=== PATIENT | female | born 1995 | race Caucasian/White ===

== ENCOUNTER → 2017-11-27 14:24 | Outpatient (CLI) | payer BC, SELFPAY | PROVIDERS: Family Provider Family Medicine; PCP Family Medicine; Visit Provider Physician Assistant | DX: J02.9 Acute pharyngitis, unspecified (principal) | CPT/HCPCS: 87081 ==

== ENCOUNTER → 2018-01-02 09:53 | Outpatient (CLI) | payer BC, SELFPAY ==
[2018-01-02 12:13] LABS: Estradiol 26.7 pg/mL; Luteinizing Hormone 1.8 mIU/mL; T4 Free Direct 0.74 ng/dL (0.76-1.46); Thyroid Stim Hormone (TSH) 0.64 uIU/mL (0.358-3.74)
[2018-01-03 11:28] LABS: Sex Hormone-binding Globulin 268.1 nmol/L (24.6-122.0)
[2018-01-05 10:06] LABS: T3 Total - Triiodothyronine 0.69 ng/mL (0.6-1.81)
== END ==
PROVIDERS: Visit Provider Obstetrics & Gynecology
DX: N92.6 Irregular menstruation, unspecified (principal)
CPT/HCPCS: 36415; 82670; 83001; 83002; 84270; 84403; 84439; 84443; 84480; 84481

== ENCOUNTER → 2018-01-25 15:27 | Outpatient (CLI) | payer BC, SELFPAY ==
[2018-01-25 17:49] LABS: ALB/GLOB Ratio 1.2 RATIO (0.9-2.4); AST(SGOT) 35 U/L (15-37); Alanine Aminotransfer ALT/SGPT 34 U/L (13-56); Albumin, Serum 3.7 g/dL (3.2-5.0); Alkaline Phosphatase 47 U/L (45-117); Anion Gap 7 (5-15); BUN 18 mg/dL (7-18); BUN/Creat Ratio 27.2 RATIO (10-20); Calcium,Total 8.3 mg/dL (8.5-10.1); Chloride 96 mmol/L (98-107); Creatinine, Serum 0.66 mg/dL (0.55-1.02); EST Glomerular Filtration Rate 118 mL/min (>60); Est Glom Filt Rate - Afr Amer 143 mL/min (>60); Globulin 3.1 g/dL (2.2-4.2); Glucose 75 mg/dL (74-106); Magnesium 2.1 mg/dL (1.6-2.6); Phosphorus 2.8 mg/dL (2.5-4.9); Potassium 3.5 mmol/L (3.5-5.1); Protein, Total 6.8 g/dL (6.4-8.2); Sodium Level 130 mmol/L (136-145)
[2018-01-25 17:56] LABS: Carbamazepine (Tegretol) 9.2 ug/mL (4.0-12.0)
== END ==
PROVIDERS: Family Provider Family Medicine; PCP Family Medicine; Visit Provider Nurse Practitioner Acute Care
DX: R56.9 Unspecified convulsions (principal)
CPT/HCPCS: 36415; 80053; 80156; 83735; 84100

== ENCOUNTER → 2018-02-18 14:26 | Outpatient (CLI) | payer BC, SELFPAY ==
[2018-02-18 14:29] LABS: Bacteria 0 SEEN /hpf (None Seen); Mucous, Urine 0 SEEN /hpf (<or=2+); Red Blood Cells-Urine 0 SEEN /hpf (0-5); Squamous Epithelial Cells - UA 0 SEEN /hpf (5-10); White Blood Cells 0 SEEN /hpf (0-5)
[2018-02-18 14:36] LABS: Glucose, Dipstick Normal (Normal); Ketone-Dipstick Negative (Negative); Leukocyte Esterase-Dipstick Negative /ul (Negative); Nitrite-Dipstick Negative (Negative); Occult Blood-Urine Negative /ul (Negative); Protein-Dipstick Negative (Negative); Urine Bilirubin Dipstick Negative (Negative); Urine Urobilinogen Normal (Normal)
[2018-02-18 14:38] LABS: Color, Urine Yellow (Yellow); Urine Clarity Clear (Clear)
== END ==
PROVIDERS: Visit Provider Nurse Practitioner Family
DX: R35.0 Frequency of micturition (principal)
CPT/HCPCS: 81001; 87086

== ENCOUNTER 2018-02-18 17:02 | Emergency (ER) | payer BC, SELFPAY ==
[2018-02-18 17:03] VITALS: BP 108/72; PULSE 59; RESP 14; TEMP 36.8; O2SAT 100; BMI 23.6
[2018-02-18 17:26] LABS: Bacteria 0 SEEN /hpf (None Seen); Mucous, Urine 0 SEEN /hpf (<or=2+); Red Blood Cells-Urine 0 SEEN /hpf (0-5); White Blood Cells 0 SEEN /hpf (0-5)
[2018-02-18 17:28] LABS: Color, Urine Yellow (Yellow); Glucose, Dipstick Normal (Normal); Ketone-Dipstick Negative (Negative); Leukocyte Esterase-Dipstick Negative /ul (Negative); Nitrite-Dipstick Negative (Negative); Occult Blood-Urine Negative /ul (Negative); Protein-Dipstick Negative (Negative); Urine Bilirubin Dipstick Negative (Negative); Urine Clarity Clear (Clear); Urine Urobilinogen Normal (Normal)
[2018-02-18 17:39] LABS: Squamous Epithelial Cells - UA 0-5 SEEN /hpf (5-10)
[2018-02-18 17:42] LABS: Internal QC Validated? YES +Cl - CLEAR BKGD; Pregnancy, Urine Negative Negative
--- NOTE | 2018-02-18 19:18 | ED.VISSUMM ---
- ER Visit Summary Date of Service: 02/18/18 Chief Complaint: Dysuria History of Present Illness: The patient is a 22 F no significant past medical history other than seizures. Complaining of mild dysuria. Primarily pressure at the end of urinating. Denies any gross hematuria. No fever. No cloudy or foul-smelling urine. Last menstrual period was 10 months ago she is currently being worked up by her DRIVER EXAMINER for irregular periods. She has never been . She denies any vaginal bleeding or discharge currently. Physical Examination: Appearing young female. Vital signs are stable afebrile. She does not look septic or toxic. H EENT exam unremarkable. Neck nontender no lymphadenopathy. Lungs clear to auscultation bilaterally. Heart regular rate and rhythm no murmur. Abdomen soft nontender. Normal bowel sounds. No peritoneal signs. She is moving all 4 extremities. Back nontender. Neurologically she is awake and alert. Test Results: UA is normal. No signs of infection. Urine test negative. Emergency Department Course and Treatment: Repeat exam patient is doing well at 1803 and will be discharged home to follow-up if not improving. Treatment Plan: Follow-up with your DRIVER EXAMINER Dr. Anu Noble if not getting better in the next several days. Disposition: Discharge Impression: Acute dysuria of uncertain etiology This note was generated with [employer] dictation software. It may contain incorrect words, spelling, and punctuation that were not noted in review of the chart prior to signing ED Disposition - Plan for ED Patient: Chief Complaint: Complaint Referrals: Jorge Gary [Primary Care Provider] -
--- NOTE | 2018-02-18 19:21 | ED.DCSUM_ITS ---
- ER Visit Summary Date of Service: 02/18/18 Chief Complaint: Dysuria History of Present Illness: The patient is a 22 F no significant past medical history other than seizures. Complaining of mild dysuria. Primarily pressure at the end of urinating. Denies any gross hematuria. No fever. No cloudy or foul-smelling urine. Last menstrual period was 10 months ago she is currently being worked up by her PACKAGER AND STRAPPER for irregular periods. She has never been . She denies any vaginal bleeding or discharge currently. Physical Examination: Appearing young female. Vital signs are stable afebrile. She does not look septic or toxic. H EENT exam unremarkable. Neck nontender no lymphadenopathy. Lungs clear to auscultation bilaterally. Heart regular rate and rhythm no murmur. Abdomen soft nontender. Normal bowel sounds. No peritoneal signs. She is moving all 4 extremities. Back nontender. Neurologically she is awake and alert. Test Results: UA is normal. No signs of infection. Urine test negative. Emergency Department Course and Treatment: Repeat exam patient is doing well at 1803 and will be discharged home to follow-up if not improving. Treatment Plan: Follow-up with your P[employer]AGER [employer]PER Dr. Anu Noble if not getting better in the next several days. Disposition: Discharge Impression: Acute dysuria of uncertain etiology This note was generated with [employer] dictation software. It may contain incorrect words, spelling, and punctuation that were not noted in review of the chart prior to signing ED Disposition - Plan for ED Patient: Chief Complaint: Complaint Referrals: Jorge Gary [Primary Care Provider] -
--- NOTE | 2018-02-18 19:21 | ED.DEP ---
ED Disposition - Plan for ED Patient: Disposition: Home or Assisted Living Chief Complaint: Complaint Instructions: ED Dysuria Uncertain Cause Referrals: Jorge Gary [Primary Care Provider] - As Needed Naz You MD [STAFF PHYSICIAN] - 3-5 Days if not improving
[2018-02-18 19:27] VITALS: RESP 18
--- NOTE | 2018-02-18 19:27 | NURSING ---
doctor put medications under the wrong person and cancelled them
== END 2018-02-18 19:27 | disposition home or self-care (01) ==
PROVIDERS: Emergency Provider Emergency Medicine; Family Provider Family Medicine; PCP Family Medicine
DX: R30.0 Dysuria (principal); Z79.899 Other long term (current) drug therapy
CPT/HCPCS: 81001; 81025; 99282

== ENCOUNTER → 2018-05-22 10:48 | Outpatient (CLI) | payer BC, SELFPAY ==
[2018-05-22 12:52] LABS: Estradiol 28.5 pg/mL; Free T3 1.8 pg/mL (2.18-3.98); T4 Free Direct 0.63 ng/dL (0.76-1.46); Thyroid Stim Hormone (TSH) 0.68 uIU/mL (0.358-3.74)
[2018-05-23 16:08] LABS: DHEA Sulfate 119.5 ug/dL (110.0-431.7); Thyroid Peroxidase AB 11 IU/mL (0-34)
[2018-05-23 17:12] LABS: Prolactin 7.7 ng/mL
[2018-05-24 11:43] LABS: Anti-Thyroglobulin AB < 1.0 IU/mL (0.0-0.9); Sex Hormone-binding Globulin 106.6 nmol/L (24.6-122.0); Thyroglobulin, Serum Qt. 2.2 ng/mL (1.5-38.5)
== END ==
PROVIDERS: Visit Provider Obstetrics & Gynecology
DX: E03.9 Hypothyroidism, unspecified (principal); N92.5 Other specified irregular menstruation
CPT/HCPCS: 36415; 82627; 82670; 84146; 84270; 84403; 84432; 84439; 84443; 84481; 86376; 86800; 82626

== ENCOUNTER → 2018-08-13 14:12 | Outpatient (CLI) | payer BC, SELFPAY ==
[2018-08-13 16:00] LABS: Hematocrit 41.2 % (37-47); Hemoglobin 13.8 g/dl (12.0-15.0); Mean Corp Hgb Conc 33.5 g/gl (32-36); Mean Corpuscular Hgb 33.1 pg (27.0-32.0); Mean Corpuscular Volume 98.8 fL (81-99); Mean Platelet Vol. 8.8 fl (6.2-12.0); Platelet Count 279 K/mm3 (150-450); RBC Distribution Width CV 12.9 % (11.6-14.6); RBC Distribution Width SD 46.1 fl (35.1-43.9); Red Blood Count 4.17 M/mm3 (4.2-5.4); White Blood Count 6.7 K/mm3 (4.4-11.0)
[2018-08-13 16:02] LABS: Scan Indicated on CBC? Y/N NO
[2018-08-13 16:38] LABS: Carbamazepine (Tegretol) 7.1 ug/mL (4.0-12.0)
[2018-08-13 16:41] LABS: Vitamin B12 815 pg/mL (211-911)
[2018-08-13 17:09] LABS: Anion Gap 6 (5-15); BUN 16 mg/dL (7-18); BUN/Creat Ratio 23.3 RATIO (10-20); Calcium,Total 8.5 mg/dL (8.5-10.1); Chloride 100 mmol/L (98-107); Creatinine, Serum 0.69 mg/dL (0.55-1.02); EST Glomerular Filtration Rate 113 mL/min (>60); Est Glom Filt Rate - Afr Amer 136 mL/min (>60); Glucose 76 mg/dL (74-106); Potassium 3.4 mmol/L (3.5-5.1); Sodium Level 136 mmol/L (136-145)
--- OUTSIDE RECORDS SUMMARY | 2018-09-25 11:49 | XMS RPT_ITS ---
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 a 22 year old female presenting as a new patient to me regarding Abnormal thyroid function tests . RECOMMENDATIONS: (E03.8) Secondary hypothyroidism (primary encounter diagnosis) Comment: pathophysiology AND treatment options discussed. check level AND Rx as needed. Plan: TSH BLD, T4 FREE/FREE THYROX, T3 FREE BLD (R94.6) Borderline abnormal TFTs Comment: pathophysiology AND treatment options discussed. check level AND Rx as needed. Plan: TSH BLD, T4 FREE/FREE THYROX, T3 FREE BLD (R79.89) Low thyroxine (T4) level Comment: monitor Ft4. Plan: TSH BLD, T4 FREE/FREE THYROX, T3 FREE BLD (R79.89) Low serum triiodothyronine (T3) Comment: monitor FT3. Plan: TSH BLD, T4 FREE/FREE THYROX, T3 FREE BLD (N92.6) Irregular menses Comment: pathophysiology AND treatment options discussed. check pituitary-ovary axis. Plan: FSH BLD, LUTEINIZING HORMONE, T4/FTI/T4U (R53.83) Lack of energy Comment: likely multifactorial. First optimize thyroid and Vit D rx, hydration and regular exercise. Plan: VITAMIN D 25 HYDROXY (E55.9) Vitamin D deficiency Comment: check level AND Rx as needed. Plan: VITAMIN D 25 HYDROXY I spent 60 minutes in this visit, with more than 50% of the time devoted to patient counseling. pathophysiology of hypothyroidism, risk of thyroid disorder with strong family history, thyroid antibodies, pituitary-thyroid axis, relationship of TSH with FT4/FT3, thyroid meds, generic versus brand name, how to take thyroid meds properly (morning vs bed time), foods and meds interfering with thyroid meds, Jose Salinas MD June 04, 2018 CNOV Observed: 06/04/2018 Status: COMPLETED Source: [place] 2:45 PM [facility] REPOSITORY Office Visit (ENDMED) SANDRA SCHULTZ ([id number]) 1995 F Date Time Provider Department 06/04/18 2:45 PM JOSE SALINAS During your visit today, we recorded the following information about you: Pulse Blood pressure Weight Height 69/minute 117/76 63 kg 1.613 m Last Period 05/16/18 Jose Salinas MD 07/15/2018 6:41 PM Signed Reason for Consultation: Hypothyroidism - possible secondary (low FT3, low Ft4, low normal TSH) Referring Physician: Jose Gary MD [address] [facility] [id number] My final recommendations will be communicated back to the requesting physician by way of shared Medical record or letter via US mail. HISTORY OF PRESENT ILLNESS; Ms. Schultz is a 22 year old female presenting as a new patient to me regarding Hypothyroidism. She was initially diagnosed with a thyroid disorder in December 2017. She has h/o body building and doing exercise, she also participate in competitions. Now she is slowing down. She was on OCPs, and when it was topped she had problem with mens, so her CREW MEMBER MD did blood work and found that her FT4 and FT3 both are low with a low normal TSH. All other hormonal labs are within normal range. She was referred here for further management. Severity, modifying factors, context and associated signs and symptoms are as follows: ? Thyroid pain: no ? Mass effect: difficulty swallowing ? Energy: reduced ? Sleep: Restless ? Temperature Intolerance: Cold Intolerance ? CREW MEMBER: Regular Menses - last 2 cycles, before that it was irregular ? GI: denies loose stools, frequent stools or constipation ? Weight: remained stable ? Eyes: No ? Memory: Good ? Diaphoresis: Not significant ? Skin: oily skin and acnes, acnes oliver whole life and taking aldactone for that now ? Neuro: migraine headaches, seizures - last Sz 3 yrs ago, dizziness ? Radiological imaging with contrast dyes within the last 3 months? no ? History of radiation exposure to head or neck area? no PAST MEDICAL HISTORY Diagnosis Date - Epilepsy (HCC) No past surgical history on file. FAMILY HISTORY Problem Relation Age of Onset - Heart Maternal Grandfather - Diabetes Maternal Grandfather - Cancer Other - Diabetes Other - Heart Other SOCIAL HISTORY Social History Substance Use Topics - Smoking status: Never Smoker - Smokeless tobacco: Never Used - Alcohol use No Current Outpatient Prescriptions: spironolactone (ALDACTONE) 100 mg tablet Take 100 mg by mouth once daily. Disp: Rfl: EPIDUO FORTE 0.3-2.5 % glwp Apply 1 application to affected area once daily. Disp: Rfl: 3 doxycycline monohydrate (MONODOX) 50 mg capsule Take 50 mg by mouth once daily. Disp: Rfl: carBAMazepine XR (TEGRETOL XR) 400 mg 12 hr tablet Take 400 mg by mouth twice daily. Disp: Rfl: B INFANTIS/B ANI/B LAURA/B BIFID (PROBIOTIC 4X ORAL) Take by mouth. Disp: Rfl: spironolactone (ALDACTONE) 50 mg tablet Disp: Rfl: Norethindrone-Mestranol 1-50 mg-mcg tab Take by mouth. Disp: Rfl: No current facility-administered medications for this visit. ALLERGIES ALLERGIES No Known Allergies MEDICAL RECORD REVIEW: Reviewed old notes from previous visits as well as labs from the available documentation. REVIEW OF SYSTEMS: SYSTEMIC: weight has been stable, low energy and cold intolerance EYES: normal NECK: normal RESPIRATORY: normal CARDIOVASCULAR: normal GASTRO-INTESTINAL: normal NEUROLOGICAL: dizziness MUSCULOSKELETAL: No joint pain, stiffness, swelling, cramping or weakness SKIN: oily skin and acne PSYCHIATRIC: irritability, mood swings, depression and anxiety LIBIDO: normal SEXUAL-REPRODUCTIVE: normal All other systems: non-contributory PHYSICAL EXAM: BP 117/76 (BP Site: Left Arm, BP Position: Sitting, BP Cuff Size: Regular Adult) Pulse 69 Ht 161.3 cm (5' 3.5) Wt 63 kg (139 lb) LMP 05/16/2018 SpO2 96% BMI 24.24 kg/m2 General: Well appearing, alert, in no acute distress, well- hydrated, well nourished. Eyes: PRATIMA, extra occular movements normal Oropharynx: Lips, mucosa, and tongue normal, teeth and gums normal, oropharynx normal Thyroid: normal to inspection, palpation and auscultation, left side prominent Thyroid size: 30 gm Heart: RRR without murmur, gallop, or rubs. No ectopy Lungs: Lungs clear to auscultation. No wheezing, rhonchi, rales Abdomen: soft, non-tender, positive bowel sounds Extremities: normal exam of the extremities, no edema present, no deformities Neuro: Awake, alert and oriented x 3, No involuntary motions. and Reflexes symmetrical Skin: color, texture, turgor normal, no rashes or lesions DATA: No components found for: TOTALT4 No results found for: FREET4 No components found for: TOTALT3 No results found for: TSH No results found for: FREET3 No results found for: MICROSOMAB RADIOLOGY: US Thyroid was not done. ASSESSMENT: Ms. Schultz is a 22 year old female presenting as a new patient to me regarding Abnormal thyroid function tests . RECOMMENDATIONS: (E03.8) Secondary hypothyroidism (primary encounter diagnosis) Comment: pathophysiology AND treatment options discussed. check level AND Rx as needed. Plan: TSH BLD, T4 FREE/FREE THYROX, T3 FREE BLD (R94.6) Borderline abnormal TFTs Comment: pathophysiology AND treatment options discussed. check level AND Rx as needed. Plan: TSH BLD, T4 FREE/FREE THYROX, T3 FREE BLD (R79.89) Low thyroxine (T4) level Comment: monitor Ft4. Plan: TSH BLD, T4 FREE/FREE THYROX, T3 FREE BLD (R79.89) Low serum triiodothyronine (T3) Comment: monitor FT3. Plan: TSH BLD, T4 FREE/FREE THYROX, T3 FREE BLD (N92.6) Irregular menses Comment: pathophysiology AND treatment options discussed. check pituitary-ovary axis. Plan: FSH BLD, LUTEINIZING HORMONE, T4/FTI/T4U (R53.83) Lack of energy Comment: likely multifactorial. First optimize thyroid and Vit D rx, hydration and regular exercise. Plan: VITAMIN D 25 HYDROXY (E55.9) Vitamin D deficiency Comment: check level AND Rx as needed. Plan: VITAMIN D 25 HYDROXY I spent 60 minutes in this visit, with more than 50% of the time devoted to patient counseling. pathophysiology of hypothyroidism, risk of thyroid disorder with strong family history, thyroid antibodies, pituitary-thyroid axis, relationship of TSH with FT4/FT3, thyroid meds, generic versus brand name, how to take thyroid meds properly (morning vs bed time), foods and meds interfering with thyroid meds, Jose Salinas MD June 04, 2018 Referring Provider: JOSE GARY [[id number]] Allergies As of Date: 06/04/2018 (No Known Allergies) Date Reviewed: 06/04/2018 Reviewed by: Grazyna Cruz Ma - Fully Assessed Reason for Visit: Thyroid Problem [110] Primary Visit Diagnosis:Secondary hypothyroidism [E03.8] Other Visit Diagnoses:Borderline abnormal TFTs [R94.6] Low thyroxine (T4) level [R79.89] Low serum triiodothyronine (T3) [R79.89] Irregular menses [N92.6] Lack of energy [R53.83] Vitamin D deficiency [E55.9] Order(s):TSH BLD [SQTSH] Order #: [id number] FUTURE T4 FREE/FREE THYROX [SQFT4] Order #: [id number] FUTURE T3 FREE BLD [SQFREET3] Order #: [id number] FUTURE FSH BLD [SQFSH] Order #: [id number] FUTURE LUTEINIZING HORMONE [SQLH] Order #: [id number] FUTURE T4/FTI/T4U [YNZ4RKN] Order #: [id number] FUTURE VITAMIN D 25 HYDROXY [SQVITD] Order #: [id number] FUTURE Prescriptions as of 06/04/2018 Sig: SPIRONOLACTONE 100 MG TABLET Take 100 mg by mouth once kathy* EPIDUO FORTE 0.3 %-2.5 % TOPI* Apply 1 application to affect* DOXYCYCLINE MONOHYDRATE 50 MG* Take 50 mg by mouth once perla* CARBAMAZEPINE ER 400 MG TABLE* Take 400 mg by mouth twice da* PROBIOTIC 4X ORAL Take by mouth. SPIRONOLACTONE 50 MG TABLET NORETHINDRONE-MESTRANOL 1 MG-* Take by mouth. Medication notes this encounter EPIDUO FORTE 0.3 %-2.5 % TOPICAL GEL WITH PUMP >> Grazyna Cruz Ma 06/04/2018 2:56 PM >> GRAZYNA CRUZ MA Jun 04, 2018 2:56 PM Problem List As Of Date 06/04/2018 Noted Resolved Examination of eyes and vision [Z01.00] INVALID FOR* Myopia [H52.10] INVALID FOR* Astigmatism, regular [H52.229] INVALID FOR* Disposition: Return in about 3 months (around 09/03/2018). Follow-up and Disposition History Recorded Letter Text Jose Salinas M.D. Staff Electrophysiology Technologist [address] [place] [address], [address] [place] [address] Office: [phone] Sandra Schultz 05/25/2018 Sandra Schultz [address] [place] [phone] Jose Gary MD, I would like to thank you for letting us participate in the care of your patient. Please see a copy of my assessment and plan following the visit. Respectfully, Jose Salinas MD Encounter Status:Closed by JOSE SALINAS MD on 07/15/18 FREE T3 Collected: 05/22/2018 Status: F Source: [place] 10:54 AM [facility] REPOSITORY Order Comment: PLEASE ADD TO BLOOD IN LAB FROM 05/22/18. RACK TG4 1 H TYPE CODE TESTS RESULT OUT OF RANGE REFERENCE UNITS LAB L501.11527 2.18-3.98 pg/mL Low FREE T3 1.8 Performed By: #### L501.10546, L501.9520, L506.0400, L3300.1750, L3100.5420 #### [facility] [address] [place], [place], [id number] THYROID STIM HORMONE Collected: 05/22/2018 Status: F Source: [place] (TSH) 10:54 AM [facility] REPOSITORY Order Comment: PLEASE ADD TO BLOOD IN LAB FROM 05/22/18. RACK TG4 1 H TYPE CODE TESTS RESULT OUT OF RANGE REFERENCE UNITS LAB L501.9520 0.358-3.74 uIU/mL Normal TSH 0.68 Performed By: #### L501.98710, L501.9520, L506.0400, L3300.1750, L3100.5420 #### [facility] [address] [place], [place], [address] T4 FREE DIRECT Collected: 05/22/2018 Status: F Source: [place] 10:54 AM [facility] REPOSITORY Order Comment: PLEASE ADD TO BLOOD IN LAB FROM 05/22/18. RACK TG4 1 H TYPE CODE TESTS RESULT OUT OF REFERENCE UNITS RANGE LAB L506.0400 0.76-1.46 ng/dL Low T4 FREE 0.63 DIRECT Performed By: #### L501.06349, L501.9520, L506.0400, L3300.1750, L3100.5420 #### [facility] [address] [place], [place], [address] ESTRADIOL Collected: 05/22/2018 Status: F Source: [place] 10:54 AM [facility] REPOSITORY Order Comment: PLEASE ADD TO BLOOD IN LAB FROM 05/22/18. RACK TG4 1 H TYPE CODE TESTS RESULT OUT OF RANGE REFERENCE UNITS LAB L3300.1750 pg/mL Normal ESTRADIOL 28.5 Result Comment: NORMAL REFERENCE RANGES FEMALE FOLLICULAR 21.4 - 164.8 pg/mL MID-CYCLE PEAK 49.9 - 367.2 pg/mL LUTEAL 40.2 - 259.0 pg/mL POST-MENOPAUSAL ON MHT <11.0 - 462.1 pg/mL NOT ON MHT <11.0 - 58.3 pg/mL MALE <11.0 - 52.5 pg/mL NOTE: [facility] HAS CONFIRMED THE DRUG FULVETRANT (FASLODEX) MAY CAUSE FALSELY ELEVATED ESTRADIOL RESULTS WHEN USING THIS TEST METHOD. IF PATIENT IS TAKING FULVESTRANT AN ALTERNATIVE METHOD SHOULD BE USED TO DETERMINE ESTRADIOL CONCENTRATION. Performed By: #### L501.58795, L501.9520, L506.0400, L3300.1750, L3100.5420 #### [facility] [address] [place], [place], [address] PROLACTIN Collected: 05/22/2018 Status: F Source: [place] 10:54 AM [facility] REPOSITORY Order Comment: PLEASE ADD TO BLOOD IN LAB FROM 05/22/18. RACK TG4 1 H TYPE CODE TESTS RESULT OUT OF RANGE REFERENCE UNITS LAB L3100.5420 ng/mL Normal PROLACTIN 7.7 Result Comment: NORMAL REFERENCE RANGES FEMALE NON- 2.2 - 30.3 ng/mL 8.1 - 347.6 ng/mL POST-MENOPAUSAL 0.7 - 31.5 ng/mL MALE 2.5 - 17.4 ng/mL NEW TEST METHOD AND REFERENCE RANGES FEBRUARY 06, 2012 Performed By: #### L501.46433, L501.9520, L506.0400, L3300.1750, L3100.5420 #### [facility] [address] [place], [address] TESTOSTERONE, SERUM TOTAL Collected: 05/22/2018 Status: F Source: [place] 10:54 AM [facility] REPOSITORY TYPE CODE TESTS RESULT OUT OF REFERENCE UNITS RANGE LAB L509.3000 ng/dL Testosterone Normal 21.22 Result Comment: NORMAL REFERENCE RANGES MALE AGE <50 123.06 - 813.86 ng/dL MALE AGE >50 89.98 - 780.10 ng/dL FEMALE PREMENOPAUSE AGE 21 - 60 9.01 - 47.94 ng/dL FEMALE POSTMENOPAUSE AGE 45 - 89 <7.00 - 45.62 ng/dL REFERENCE RANGE AND METHODOLOGY CHANGED 09/06/2017 Performed By: #### L509.3000 #### [facility] [address] [facility] [place], [address] SEX HORMONE-BINDING Collected: 05/22/2018 Status: F Source: [place] GLOBULIN 10:54 AM [facility] REPOSITORY Order Comment: Has Patient had Radioactive Injection for X-ray?: N TYPE CODE TESTS RESULT OUT OF RANGE REFERENCE UNITS LAB L3100.5060 24.6-122.0 nmol/L Normal SHBG 106.6 Result Comment: Performed at: [facility] [id number] Web Pressman: Timur Ferraro PhD, Phone: [phone] Performed By: #### L3100.5060, L3300.1500, L3300.5620, L3300.6180 #### [facility] (refer to report for specific site) refer to report for address and phone number DHEA SULFATE Collected: 05/22/2018 Status: F Source: [place] 10:54 AM [facility] REPOSITORY Order Comment: Has Patient had Radioactive Injection for X-ray?: N TYPE CODE TESTS RESULT OUT OF RANGE REFERENCE UNITS LAB L3300.1500 110.0-431.7 ug/dL Normal DHEA SULF 119.5 4020 Performed By: #### L3100.5060, L3300.1500, L3300.6820, L3300.6900 #### [facility] (refer to report for specific site) refer to report for address and phone number THYROGLOBULIN W/ANTI-TG Collected: 05/22/2018 Status: F Source: [place] AB 10:54 AM [facility] REPOSITORY Order Comment: Has Patient had Radioactive Injection for X-ray?: N TYPE CODE TESTS RESULT OUT OF RANGE REFERENCE UNITS LAB L3300.7025 0.0-0.9 IU/mL Normal ANTI-TG < 1.0 AB Result Comment: Thyroglobulin Antibody measured by [facility] LAB L3400.1030 1.5-38.5 ng/mL Normal THYROGLOB 2.2 Result Comment: According to the National Academy of Clinical Biochemistry, the reference interval for Thyroglobulin (TG) should be related to euthyroid patients and not for patients who underwent thyroidectomy. TG reference intervals for these patients depend on the residual mass of the thyroid tissue left after surgery. Establishing a post-operative baseline is recommended. The assay limit of quantitation is 0.1 ng/mL Thyroglobulin measured by [facility] Dani Immun[facility] Assay Performed By: #### L3100.5060, L3300.1500, L3300.6820, L3300.6900 #### [facility] (refer to report for specific site) refer to report for address and phone number THYROID PEROXIDASE AB Collected: 05/22/2018 Status: F Source: [place] 10:54 AM [facility] REPOSITORY Order Comment: Has Patient had Radioactive Injection for X-ray?: N TYPE CODE TESTS RESULT OUT OF RANGE REFERENCE UNITS LAB L3300.6900 0-34 IU/mL Normal TPO AB 11 6676 Performed By: #### L3100.5060, L3300.1500, L3300.6820, L3300.6900 #### [facility] (refer to report for specific site) refer to report for address and phone number EMERGENCY DEPARTMENT Observed: 02/19/2018 Status: F Source: [place] SUMMARY 12:18 AM [facility] REPOSITORY [facility] Medical Records Department [address] [place] [address] Emergency Department Summary 02/18/18 1918 MR#: [id number] Acct: [id number] Name: SANDRA SCHULTZ Rep #: [id number] : 1995 22 From: James Oliveira MD PCP: JOSE GARY Status: DEP ER - ER Visit Summary Date of Service: 02/18/18 Chief Complaint: Dysuria History of Present Illness: The patient is a 22 F no significant past medical history other than seizures. Complaining of mild dysuria. Primarily pressure at the end of urinating. Denies any gross hematuria. No fever. No cloudy or foul- smelling urine. Last menstrual period was 10 months ago she is currently being worked up by her PHOTOGRAPHER STILL for irregular periods. She has never been . She denies any vaginal bleeding or discharge currently. Physical Examination: Appearing young female. Vital signs are stable afebrile. She does not look septic or toxic. H EENT exam unremarkable. Neck nontender no lymphadenopathy. Lungs clear to auscultation bilaterally. Heart regular rate and rhythm no murmur. Abdomen soft nontender. Normal bowel sounds. No peritoneal signs. She is moving all 4 extremities. Back nontender. Neurologically she is awake and alert. Test Results: UA is normal. No signs of infection. Urine test negative. Emergency Department Course and Treatment: Repeat exam patient is doing well at 1803 and will be discharged home to follow-up if not improving. Treatment Plan: Follow-up with your PHOTOGRAPHER STILL Dr. Anu Noble if not getting better in the next several days. Disposition: Discharge Impression: Acute dysuria of uncertain etiology This note was generated with Blink Messenger dictation software. It may contain incorrect words, spelling, and punctuation that were not noted in review of the chart prior to signing ED Disposition - Plan for ED Patient: Chief Complaint: Complaint Referrals: Jose Gary [Primary Care Provider] - What to do if you have Problems For any increased pain, shortness of breath, bleeding, nausea or vomiting, chest pain, or any unexpected problems, contact your Primary Care Provider. Call [facility] ([phone]) or report to the closest Emergency Room. Call 911 if necessary. 02/19/18 0018 <Electronically signed by James Oliveira MD> Date James Oliveira MD Cosigner Signature (If Indicated): Date CC: JOSE GARY DISCHARGE INSTRUCTION Observed: 02/19/2018 Status: F Source: [place] 12:18 AM [facility] REPOSITORY [facility] Medical Records Department [address] [place] [address] Discharge Instruction 02/18/18 192 MR#: [id number] Acct: [id number] Name: SANDRA SCHULTZ Rep #: [id number] : 1995 22 From: James Oliveira MD PCP: JOSE GARY Status: DEP ER ED Disposition - Plan for ED Patient: Disposition: Home or Assisted Living Chief Complaint: Complaint Instructions: ED Dysuria Uncertain Cause Referrals: Jose Gary [Primary Care Provider] - As Needed Naz You MD [STAFF PHYSICIAN] - 3-5 Days if not improving What to do if you have Problems For any increased pain, shortness of breath, bleeding, nausea or vomiting, chest pain, or any unexpected problems, contact your Primary Care Provider. Call [facility] ([phone]) or report to the closest Emergency Room. Call 911 if necessary. 02/19/18 0018 <Electronically signed by James Oliveira MD> Date James Oliveira MD Cosigner Signature (If Indicated): Date CC: JOSE GARY URINALYSIS, COMPLETE Collected: 02/18/2018 Status: F Source: [place] 5:20 PM [facility] REPOSITORY Order Comment: Order Date: 02/18/18 How was Urine Obtained? TIP STITCHER TO SPECIFY TYPE CODE TESTS RESULT OUT OF RANGE REFERENCE UNITS LAB L400.3000 Yellow COLOR Normal Yellow LAB L400.3050 Clear Normal CLARITY Clear LAB L400.3200 Normal mg/dl Normal GLUCOSE, UR Normal LAB L400.3300 Negative mg/dL Normal BILIRUBIN URINE Negative LAB L400.3400 Negative mg/dl Normal KETONE UR Negative LAB L400.3465 1.002-1.030 Normal SP.GR. DIPSTX 1.010 LAB L400.3550 5.0 - 8.0 pH UR Normal 7.0 LAB L400.3600 Negative mg/dl PROT Normal DIPSTX Negative LAB L400.3700 Normal mg/dl Normal UROBILI Normal LAB L400.3750 Negative Normal NITRITE UR Negative LAB L400.3780 Negative /ul Normal OCCULT BLOOD-UR Negative LAB L400.3800 Negative /ul LEUK Normal ESTERASE Negative LAB L400.4050 0-5 /hpf WBC 0 Normal SEEN LAB L400.4100 0-5 /hpf 0 Normal RBC-UA SEEN LAB L400.4150 5-10 /hpf SQUAM Normal EPI 0-5 SEEN LAB L400.4300 None Seen /hpf 0 Normal BACTERIA SEEN LAB L400.4350 <or=2+ /hpf 0 Normal MUCUS, URINE SEEN Performed By: #### L400.0001 #### [facility] [facility]. [place], [place], [address] ,URINE Collected: 02/18/2018 Status: F Source: [place] 5:20 PM [facility] REPOSITORY TYPE CODE TESTS RESULT OUT OF REFERENCE UNITS RANGE LAB L400.8000 Negative Normal HCGUQUAL Negative Result Comment: Very dilute urine specimens, as indicated by a low specific gravity, may not contain volunteer patient representative levels of hCG. If is still suspected, a first morning urine specimen should be collected 48 hours later and tested. Performed By: #### L400.7600 #### [facility] [address] [facility]. [place], [place], [address] URINALYSIS, COMPLETE Collected: 02/17/2018 Status: F Source: [place] 2:28 PM [facility] REPOSITORY Order Comment: How was Urine Obtained? CLEAN CATCH TYPE CODE TESTS RESULT OUT OF RANGE REFERENCE UNITS LAB L400.3000 Yellow COLOR Normal Yellow LAB L400.3050 Clear Normal CLARITY Clear LAB L400.3200 Normal mg/dl Normal GLUCOSE, UR Normal LAB L400.3300 Negative mg/dL Normal BILIRUBIN URINE Negative LAB L400.3400 Negative mg/dl Normal KETONE UR Negative LAB L400.3465 1.002-1.030 Normal SP.GR. DIPSTX 1.010 LAB L400.3550 5.0 - 8.0 pH UR Normal 7.0 LAB L400.3600 Negative mg/dl PROT Normal DIPSTX Negative LAB L400.3700 Normal mg/dl Normal UROBILI Normal LAB L400.3750 Negative Normal NITRITE UR Negative LAB L400.3780 Negative /ul Normal OCCULT BLOOD-UR Negative LAB L400.3800 Negative /ul LEUK Normal ESTERASE Negative LAB L400.4050 0-5 /hpf WBC 0 Normal SEEN LAB L400.4100 0-5 /hpf 0 Normal RBC-UA SEEN LAB L400.4150 5-10 /hpf SQUAM 0 Normal EPI SEEN LAB L400.4300 None Seen /hpf 0 Normal BACTERIA SEEN LAB L400.4350 <or=2+ /hpf 0 Normal MUCUS, URINE SEEN Performed By: #### L400.0001, M100.0650 #### [facility] [address] [facility]. [place], [place], [address] Observed: 02/17/2018 Status: F Source: LUTZ CULTURE, URINE 2:28 PM [facility] REPOSITORY RESULT(S) PREVIOUSLY REPORTED ON MANUAL REQUISITION DURING DOWNTIME. Urine Culture Culture exhibits no growth. Performed By: #### L400.0001, M100.0650 #### [facility] [address] [facility]. [place], [place], [address] URGENT CARE VISIT Observed: 02/17/2018 Status: F Source: LUTZ REPORT 1:12 PM [facility] REPOSITORY [facility] [address] [place] [address] [address] [place] [address] OFFICE VISIT Date of Service: 02/17/18 MR#: [id number] Acct: [id number] Name: SANDRA SCHULTZ Rep #: [id number] : 1995 Provider: Tariq Koenig NP Age/Sex: 22/F Location: [facility] Status: Signed Intake Vital Signs06/02/18 Height 5 ft 4 in 02/17/18 Weight: 133 lb 02/17/18 Body Mass Index (BMI) 22.8 02/17/18 Blood Pressure 98/66 Intake Visit Reasons: UTI Chief Complaint: uti Document Preparer Microfilming Required: No Is patient in pain?: No Allergies No Known Allergies Allergy (Verified 02/17/18 12:53) Medications Carbamazepine XR [Tegretol XR] 400 mg PO BID 12/10/16 [History Confirmed 02/17/18] biotin 2,500 mcg capsule 2,500 mcg PO ONCE 10/06/17 [History Confirmed 02/17/18] doxycycline monohydrate 50 mg capsule 50 mg PO ONCE 10/06/17 [History Confirmed 02/17/18] lactobacillus combination no.4 3 billion cell capsule 3,000 mmu cells PO QDAY 10/06/17 [History Confirmed 02/17/18] multivitamin capsule 1 cap PO QAM 10/06/17 [History Confirmed 02/17/18] norethindrone-ethinyl estradiol triphasic 0.5/1/0.5 mg-35 mcg tablet 1 tab PO QDAY 10/06/17 [History Confirmed 02/17/18] spironolactone 25 mg tablet 25 mg PO QAM 10/06/17 [History Confirmed 02/17/18] cephalexin 500 mg capsule 500 mg PO BID #14 cap 02/17/18 [Rx Confirmed 02/17/18] PFSH Medical History Seizures (Acute) Family History Other Breast cancer Cancer Diabetes Heart disease Social History Smoking Status: Never smoker alcohol intake: never HPI HPI Chief Complaint: uti Details: SANDRA SCHULTZ, is a 22 F who presents to the office today for possible UTI. She has a past medical history as listed above. The patient does state that she has had urinary frequency for the past couple of months, however she attributes this to her increasing her fluid intake because she works out a lot and has increased her fluid intake lately. However she notes some urinary burning that occurs after urination which is been going on for the past couple days. She also states that she has some suprapubic pressure as well. She denies being sexually active and denies any concerns for any sexually transmitted infections. She denies any vaginal discharge, dryness, odor, or itching. The patient otherwise denies any fever, chills, nausea, vomiting, shortness of breath, chest pain or pressure, palpitations, orthopnea, lower extremity edema, syncope or presyncopal episodes. ROS Const Constitutional: No fever(s), chills, weakness, change in appetite, sleep problems, fatigue, malaise or frequent falls Eyes Eyes: No blurry vision, change in vision, double vision or discharge ENT ENT: No abnormal hearing, ear pain, ear pressure or dizziness/vertigo Resp Respiratory: No cough, wheezing or shortness of breath Cardio Cardiology: No chest pain at rest, chest pain with exertion, shortness of breath, dyspnea on exertion, lightheadedness, irregular heart rhythm, fast heart rate, palpitations, orthopnea or generalized swelling Gastro GI: No abdominal pain, change in bowel habits, constipation, diarrhea, vomiting or nausea/dyspepsia Genitourinary-Female: Positive for burning urination and urinary frequency; no vaginal dryness, pelvic pain, Vaginal Itching, vaginal odor or sexual problems Musc Musculoskeletal: No joint pain, back pain, limited range of motion, joint swelling, muscle weakness, tingling or numbness Skin Skin: No change in skin color, wounds, rash or itching Neuro Neurology: No weakness, frequent falls, abnormal hearing, tingling, numbness, unsteady gait/balance, dizziness, loss of vision or memory loss Psych Psychiatric: No change in appetite, No memory loss, No anxiety, No depression, No Thoughts of harming yourself/Others Endo Endocrine: No fatigue, increased thirst/drinking, increased urination, increased hunger or heat intolerance Aller/Imm Allergy/Immunologic: No wheezing, itchy eyes or seasonal allergy symptoms Casey/Lymp Hematologic/Lymphatic: No easy bleeding, easy bruising or enlarged lymph nodes Exam Const General: cooperative, comfortable, no acute distress Nutritional Appearance: average body habitus, well nourished Orientation: alert, oriented x3 Limitations: mental status not altered Resp Effort AND Inspection: normal respiratory effort, able to speak in complete sentences, normal respiratory pattern, symmetric chest movement, no audible wheezes, no cough Auscultation: Bilateral: Clear to Auscultation Cardio Palpation: normal PMI Rate: regular rate Heart Sounds: S1 normal, S2 normal, normal S1 and S2, no click, no gallops, no murmurs, no rubs General: deferred, No CVA tenderness, bladder normal to palpation, other (suprapubic tenderness) Bimanual Exam- Vagina AND Uterus: bladder normal to palpation Musc Musculoskeletal: No muscle weakness Skin General: no rashes or lesions noted, elasticity normal, turgor normal Lesions: no lesions Rashes: no rashes Neuro General: alert, awake, oriented x3, CN's II-XI intact bilaterally Speech: speech normal Gait: normal gait Motor: muscle tone normal throughout Psych Appearance: grossly normal Mental Status: mental status grossly normal Affect: normal affect Attitude: cooperative Thought Process: normal Results BMSUA Office Urine Color Yellow Last Edit by Alice Enriquez on 02/17/18 12:56 Assessment AND Plan Problems 1. Acute cystitis without hematuria N30.00 Plan Rksoh-ma-[id number] UA was negative, however given patient's symptoms we will treat empirically for UTI with Keflex twice daily 7 days. Did discuss how to take medication and potential side effects. Patient verbalized understanding. Did discuss with patient that if her symptoms persist after being treated with an antibiotic then she needs to follow-up with [facility] to look at other causes of her symptoms. Patient verbalized understanding. Oralndo disclaimer Orders Orders: Medications New: Coding Level of Care Code Off vis,est,level 3 Diagnoses Acute cystitis without hematuria N30.00 Urinary tract infection type: acute cystitis Hematuria presence: without hematuria 02/17/18 1312 <Electronically signed by Tariq ESPANA> Date Tariq ESPANA Cosigner Signature: Date (if applicable) CC: XR RIBS W/ PA CHEST Observed: 02/14/2018 Status: F Source: COLBY LEFT 1:25 PM [facility] REPOSITORY Exam Date/Time: 02/14/2018 13:37 EDT Reason for Exam: Pain, Traumatic Report CHEST AND LEFT RIBS HISTORY: Injury. FINDINGS: The lungs are clear. The cardiac size, tina and mediastinum are normal. The pulmonary vascularity is within normal limits. The ribs are intact. IMPRESSION: No acute disease. No rib fracture. FINAL REPORT Dictated: 02/14/2018 2:36 pm Romie Trevino MD Signed (Electronic Signature): 02/14/2018 2:36 pm Signed by: Romie Trevino MD Technologist: LEONARD COMPREHENSIVE METABOLIC Collected: 01/25/2018 Status: F Source: JADYN TORREZ 3:35 PM [facility] REPOSITORY TYPE CODE TESTS RESULT OUT OF RANGE REFERENCE UNITS LAB L501.0100 74-106 mg/dL Normal GLU 75 Result Comment: Please note revised GLUCOSE reference range effective 2017. LAB L501.1000 7-18 mg/dL Normal BUN 18 LAB L501.1100 0.55-1.02 mg/dL Normal CREAT,SERUM 0.66 Result Comment: The validity of the calculated GFR AND GFRAA in patients over 70 years has not been determined. Clinical correlation is essential. LAB L501.1110 >60 mL/min Normal EST GFR 118 Result Comment: Non- GFR Calc LAB L501.1115 >60 mL/min Normal EST GFR - AA 143 Result Comment: GFR Calc LAB L501.1300 10-20 RATIO High BUN/CRE 27.2 LAB L501.1500 6.4-8.2 g/dL T Normal PROT 6.8 LAB L501.1800 3.2-5.0 g/dL Normal ALB 3.7 LAB L501.1950 2.2-4.2 g/dL Normal GLOB 3.1 LAB L501.2000 0.9-2.4 RATIO Normal A/G 1.2 LAB L501.2200 8.5-10.1 mg/dL Low CA 8.3 LAB L501.4100 15-37 U/L Normal AST 35 LAB L501.4305 45-117 U/L Normal ALK P 47 LAB L501.4405 13-56 U/L Normal ALT 34 LAB L501.4600 0.20-1.00 mg/dL T Normal BILI 0.50 LAB L501.5300 136-145 mmol/L Low NA 130 LAB L501.5600 3.5-5.1 mmol/L K Normal 3.5 LAB L501.5900 98-107 mmol/L Low CL 96 LAB L501.6100 21.0-32.0 mmol/L Normal CO2 27.0 LAB L501.6200 5-15 Normal GAP 7 Performed By: #### L500.4050, L501.2300, L501.5200 #### [facility] [address] [place], [address] PHOSPHORUS Collected: 01/25/2018 Status: F Source: LUTZ 3:35 PM [facility] REPOSITORY TYPE CODE TESTS RESULT OUT OF RANGE REFERENCE UNITS LAB L501.2300 2.5-4.9 mg/dL Normal PHOS 2.8 Performed By: #### L500.4050, L501.2300, L501.5200 #### [facility] [address] [place], [address] MAGNESIUM Collected: 01/25/2018 Status: F Source: JADYN 3:35 PM [facility] REPOSITORY TYPE CODE TESTS RESULT OUT OF RANGE REFERENCE UNITS LAB L501.5200 1.6-2.6 mg/dL Normal MG 2.1 Performed By: #### L500.4050, L501.2300, L501.5200 #### [facility] [address] [place], [address] CARBAMAZEPINE (TEGRETOL) Collected: 01/25/2018 Status: F Source: JADYN 3:35 PM [facility] REPOSITORY TYPE CODE TESTS RESULT OUT OF REFERENCE UNITS RANGE LAB L501.7900 4.0-12.0 ug/mL CARBAMAZEPINE Normal 9.2 Performed By: #### L501.7900 #### [facility] [address] [place], [address] FREE T3 Collected: 01/02/2018 Status: F Source: JADYN 9:55 AM [facility] REPOSITORY TYPE CODE TESTS RESULT OUT OF RANGE REFERENCE UNITS LAB L501.89336 2.18-3.98 pg/mL Low FREE T3 2.0 Performed By: #### L501.84240, L501.9520, L506.0400, L3100.5125, L3100.5170, L3300.1750 #### [facility] [address] [facility] [place], [place], [address] THYROID STIM HORMONE Collected: 01/02/2018 Status: F Source: JADYN (TSH) 9:55 AM [facility] REPOSITORY TYPE CODE TESTS RESULT OUT OF RANGE REFERENCE UNITS LAB L501.9520 0.358-3.74 uIU/mL Normal TSH 0.64 Performed By: #### L501.73317, L501.9520, L506.0400, L3100.5125, L3100.5170, L3300.1750 #### [facility] [address] [facility] [place], [place], [id number] T4 FREE DIRECT Collected: 01/02/2018 Status: F Source: JADYN 9:55 AM [facility] REPOSITORY TYPE CODE TESTS RESULT OUT OF REFERENCE UNITS RANGE LAB L506.0400 0.76-1.46 ng/dL Low T4 FREE 0.74 DIRECT Performed By: #### L501.32424, L501.9520, L506.0400, L3100.5125, L3100.5170, L3300.1750 #### [facility] [facility] [place], [place], [id number] FOLLICLE STIMULATING Collected: 01/02/2018 Status: F Source: JADYN HORMONE 9:55 AM [facility] REPOSITORY TYPE CODE TESTS RESULT OUT OF RANGE REFERENCE UNITS LAB L3100.5125 mIU/mL Normal FSH 7.0 Result Comment: NORMAL REFERENCE RANGES FEMALE FOLLICULAR 2.3 - 12.6 mIU/mL MID-CYCLE PEAK 5.2 - 17.5 mIU/mL LUTEAL 1.7 - 12.9 mIU/mL POST-MENOPAUSAL ON MHT 5.9 - 72.8 mIU/mL NOT ON MHT 12.7 - 132.2 mlU/mL MALE 0.7 - 10.8 mIU/mL NEW TEST METHOD AND REFERENCE RANGES FEBRUARY 06, 2012 Performed By: #### L501.04383, L501.9520, L506.0400, L3100.5125, L3100.5170, L3300.1750 #### [facility] [address] [place], [place], [address] LUTEINIZING HORMONE Collected: 01/02/2018 Status: F Source: LUTZ 9:55 AM [facility] REPOSITORY TYPE CODE TESTS RESULT OUT OF RANGE REFERENCE UNITS LAB L3100.5170 mIU/mL Normal LH 1.8 Result Comment: NORMAL REFERENCE RANGES FEMALE FOLLICULAR 1.9 - 26.2 mIU/mL MID-CYCLE PEAK 22.8 - 76.1 mIU/mL LUTEAL 0.6 - 16.6 mIU/mL POST-MENOPAUSAL ON MHT 1.1 - 52.4 mIU/mL NOT ON MHT 8.6 - 61.8 mIU/mL MALE 1.2 - 10.6 mIU/mL NEW TEST METHOD AND REFERENCE RANGES FEBRUARY 06, 2012 Performed By: #### L501.58328, L501.9520, L506.0400, L3100.5125, L3100.5170, L3300.1750 #### [facility] [address] [place], [place], [address] ESTRADIOL Collected: 01/02/2018 Status: F Source: LUTZ 9:55 AM [facility] REPOSITORY TYPE CODE TESTS RESULT OUT OF RANGE REFERENCE UNITS LAB L3300.1750 pg/mL Normal ESTRADIOL 26.7 Result Comment: NORMAL REFERENCE RANGES FEMALE FOLLICULAR 21.4 - 164.8 pg/mL MID-CYCLE PEAK 49.9 - 367.2 pg/mL LUTEAL 40.2 - 259.0 pg/mL POST-MENOPAUSAL ON MHT <11.0 - 462.1 pg/mL NOT ON MHT <11.0 - 58.3 pg/mL MALE <11.0 - 52.5 pg/mL NOTE: [facility] HAS CONFIRMED THE DRUG FULVETRANT (FASLODEX) MAY CAUSE FALSELY ELEVATED ESTRADIOL RESULTS WHEN USING THIS TEST METHOD. IF PATIENT IS TAKING FULVESTRANT AN ALTERNATIVE METHOD SHOULD BE USED TO DETERMINE ESTRADIOL CONCENTRATION. Performed By: #### L501.66359, L501.9520, L506.0400, L3100.5125, L3100.5170, L3300.1750 #### [facility] [address] [place], [address] TESTOSTERONE, SERUM TOTAL Collected: 01/02/2018 Status: F Source: JADYN 9:55 AM [facility] REPOSITORY Order Comment: PLEASE ADD TO BLOOD IN LAB. RACK:1 6 N TYPE CODE TESTS RESULT OUT OF REFERENCE UNITS RANGE LAB L509.3000 ng/dL Testosterone Normal 17.39 Result Comment: NORMAL REFERENCE RANGES MALE AGE <50 123.06 - 813.86 ng/dL MALE AGE >50 89.98 - 780.10 ng/dL FEMALE PREMENOPAUSE AGE 21 - 60 9.01 - 47.94 ng/dL FEMALE POSTMENOPAUSE AGE 45 - 89 <7.00 - 45.62 ng/dL REFERENCE RANGE AND METHODOLOGY CHANGED 09/06/2017 Performed By: #### L509.3000, L501.9186 #### [facility] [address] [place], [address] T3 TOTAL - TRIIODOTHYRONINE Collected: 01/02/2018 Status: F Source: JADYN 9:55 AM [facility] REPOSITORY Order Comment: PLEASE ADD TO BLOOD IN LAB. RACK:1 6 N TYPE CODE TESTS RESULT OUT OF RANGE REFERENCE UNITS LAB L501.9186 0.6-1.81 ng/mL Normal T3 Total 0.69 Performed By: #### L509.3000, L501.9186 #### [facility] [address] [place], [address] SEX HORMONE-BINDING Collected: 01/02/2018 Status: F Source: JADYN GLOBULIN 9:55 AM [facility] REPOSITORY TYPE CODE TESTS RESULT OUT OF RANGE REFERENCE UNITS LAB L3100.5060 24.6-122.0 nmol/L High SHBG 268.1 Result Comment: Performed at: - [facility] [id number] Web Pressman: Timur Ferraro PhD, Phone: [phone] Performed By: #### L3100.5060 #### [facility] (refer to report for specific site) refer to report for address and phone number Observed: 11/27/2017 Status: F Source: JADYN CULTURE, R/O STREP A 4:09 PM [facility] REPOSITORY ROBI Culture No Group A Beta Streptococcus isolated. * This cultures intended use is to screen for Beta Streptococcus A only. All other pathogens and potential pathogens will not be screened for or reported. If a complete workup of all potential pathogens is indicated an order for a routine throat culture is required. Performed By: #### M100.010 #### [facility] [address] [place], [address] URGENT CARE VISIT Observed: 11/27/2017 Status: F Source: LUTZ REPORT 12:25 PM [facility] REPOSITORY [facility] [address] [place] [address] [address] [place], [place] [address] OFFICE VISIT Date of Service: 11/27/17 MR#: [id number] Acct: [id number] Name: SANDRA SCHULTZ Rep #: [id number] : 1995 Provider: Lorne HARTLEY Age/Sex: 22/F Location: [facility] Status: Signed Intake Vital Signs11/27/17 Height 5 ft 3 in Intake Visit Reasons: COUGH, FEVER Is patient in pain?: No Allergies No Known Allergies Allergy (Verified 11/27/17 12:07) Medications Carbamazepine XR [Tegretol XR] 400 mg PO BID 12/10/16 [History Confirmed 11/27/17] biotin 2,500 mcg capsule 2,500 mcg PO ONCE 10/06/17 [History Confirmed 11/27/17] doxycycline monohydrate 50 mg capsule 50 mg PO ONCE 10/06/17 [History Confirmed 11/27/17] lactobacillus combination no.4 3 billion cell capsule 3,000 mmu cells PO QDAY 10/06/17 [History Confirmed 11/27/17] multivitamin capsule 1 cap PO QAM 10/06/17 [History Confirmed 11/27/17] norethindrine-ethinyl estradiol triphasic 0.5/1/0.5 mg-35 mcg tablet 1 tab PO QDAY 10/06/17 [History Confirmed 11/27/17] spironolactone 25 mg tablet 25 mg PO QAM 10/06/17 [History Confirmed 11/27/17] [facility] Medical History Seizures (Acute) Family History Other Breast cancer Cancer Diabetes Heart disease Social History Smoking Status: Never smoker alcohol intake: never HPI HPI Details: SANDRA SCHULTZ, is a 22 F who presents to the office today for initial evaluation for day history of sore throat and cough. Patient has noticed over the last 24-48 hours being chilled as well. She states having a T-max of 99.5 Fahrenheit at home yesterday evening. She notes no complaints of fever, sweats, rash, chest pain/shortness of breath. She notes her cough is moist but nonproductive. She is a non-smoker. She notes no other associated symptoms, no other alleviating or aggravating factors. ROS Const Constitutional: Positive for chills; no excessive sweating, abnormal sleep pattern, fever(s), night sweats or body ache Eyes Eyes: No change in vision ENT ENT: Positive for sore throat; no abnormal hearing, ear pain, ear discharge, ear pressure, hearing loss, post nasal drip or sinus pressure Resp Respiratory: Positive for cough Cough: Yes non-productive; no chest congestion Cardio Cardiology: No excessive sweating, chest pain at rest, chest pain with exertion, shortness of breath, dyspnea on exertion, irregular heart rhythm, generalized swelling or leg pain with exertion Gastro GI: No abdominal pain, change in stool character or change in bowel habits Musc Musculoskeletal: No joint pain, back pain or limited range of motion Skin Skin: No change in hair or sores Neuro Neurology: No abnormal hearing, abnormal speech or abnormal movements Psych Psychiatric: No abnormal sleep pattern Endo Endocrine: No excessive sweating, change in body appearance, cold intolerance or heat intolerance Aller/Imm Allergy/Immunologic: No food intolerance Casey/Lymp Hematologic/Lymphatic: No easy bruising Exam Const General: cooperative, healthy appearing, no acute distress, comfortable Nutritional Appearance: average body habitus Orientation: alert, awake, oriented x3 HENMT Head: normal to inspection Ears: hearing grossly normal bilaterally, external ears normal, TM's normal bilaterally, EAC's normal Nose: external nose normal, nares normal, septum normal, no nasal discharge Face and sinus: normal facial exam, sinuses nontender, face symmetric Mouth: oral mucosae normal, lip normal, oropharynx normal, tongue normal Teeth and gingiva: gingiva normal, dentition normal Throat: posterior oropharynx normal, uvula midline, abnormal tonsil (Trace erythema; rapid strep test today negative) bilaterally Eyes General: appearance normal, both eyes and all related structures Neck Neck: normal visual inspection, full ROM, no meningeal signs, supple, lymphadenopathy (Left anterior cervical node tenderness and trace swelling to palpation) Neck mass: No Thyroid: thyroid normal Lymphatic: no lymphadenopathy noted Chest Chest palpation AND inspection: normal inspection of the chest Resp Effort AND Inspection: normal respiratory effort, able to speak in complete sentences, symmetric chest movement, no cough (No unsolicited cough during today's exam) Auscultation: Bilateral: Clear to Auscultation Cardio Palpation: normal PMI Rate: regular rate Rhythm: regular rhythm Heart Sounds: S1 normal, S2 normal, no gallops, no murmurs, no rubs Pulses: radial pulses present GI Inspection: normal to inspection Palpation: soft Skin General: no rashes or lesions noted Neuro General: alert, awake, oriented x3, gait normal Cognition: normal cognition Speech: speech normal Gait: normal gait Motor: muscle tone normal throughout Sensory Exam: no sensory deficits noted Extrem General: normal to inspection Psych Appearance: grossly normal Mental Status: mental status grossly normal Mood: congruent mood Affect: normal affect Speech and Movement: speech and movement normal Attitude: cooperative Thought Process: normal Thought Content: normal Judgment: judgment good Results BMSRAPIDSTREPA Office Rapid Strep A Negative Last Edit by Marianne Kent on 11/27/17 12:24 Assessment AND Plan Problems 1. Pharyngitis J02.9 2. URI (upper respiratory infection) J06.9 Plan Patient aware today's rapid strep test was negative therefore throat culture sent to lab for further evaluation. Clear fluids, rest, Advil/Tylenol/ttgz-kin-cgdxcko tussive as needed for symptomatic relief. Follow-up with PCP in 5 7 days should symptoms not improve, sooner should symptoms worsen or any other concerns develop. Patient states acknowledging understanding all the above. This note was generated with Compare And Share[employer] software. It may contain incorrect words, spelling, and punctuation that were not noted in checking the note before signing. Orders Orders: Coding Level of Care Code Off vis,est,level 3 Diagnoses Pharyngitis J02.9 URI (upper respiratory infection) J06.9 03/12/18 1225 <Electronically signed by Lorne HARTLEY> Date Lorne HARTLEY Cosigner Signature: Date (if applicable) CC: URGENT CARE VISIT Observed: 10/06/2017 Status: F Source: LUTZ REPORT 2:[address] [facility] [address] [place] [address] OFFICE VISIT Date of Service: 10/06/17 MR#: [id number] Acct: [id number] Name: SANDRA SCHULTZ Rep #: [id number] : 1995 Provider: Sina HARTLEY Age/Sex: 22/F Location: [facility] Status: Signed Intake Vital Signs10/06/17 Height 5 ft 3 in Intake Visit Reasons: EARS NEED CLEANED OUT Is patient in pain?: No Allergies No Known Allergies Allergy (Verified 10/06/17 13:31) Medications Carbamazepine XR [Tegretol XR] 400 mg PO BID 12/10/16 [History Confirmed 10/06/17] biotin 2,500 mcg capsule 2,500 mcg PO ONCE 10/06/17 [History Confirmed 10/06/17] doxycycline monohydrate 50 mg capsule 50 mg PO ONCE 10/06/17 [History Confirmed 10/06/17] lactobacillus combination no.4 3 billion cell capsule 3,000 mmu cells PO QDAY 10/06/17 [History Confirmed 10/06/17] multivitamin capsule 1 cap PO QAM 10/06/17 [History Confirmed 10/06/17] norethindrine-ethinyl estradiol triphasic 0.5/1/0.5 mg-35 mcg tablet 1 tab PO QDAY 10/06/17 [History Confirmed 10/06/17] spironolactone 25 mg tablet 25 mg PO QAM 10/06/17 [History Confirmed 10/06/17] PFSH Medical History Seizures (Acute) Family History Other Breast cancer Cancer Diabetes Heart disease Social History Smoking Status: Never smoker alcohol intake: never HPI EARS NEED CLEANED OUT: Details: SANDRA SCHULTZ, is a 22 F who presents to the office today for complaint of ear fullness and decreased hearing for the past 5-6 days. Patient states that she has had recurrent issues with earwax and believes that she may need to have them irrigated at this time. She denies fever, chills, sweats. No otorrhea or hearing loss. No other associated symptoms or alleviating/aggravating factors. ROS Const Constitutional: No fever(s), chills, night sweats or abnormal sleep pattern ENT ENT: Positive for ear pressure (Ear fullness) and abnormal hearing; no ear pain or ear discharge Resp Respiratory: No shortness of breath or chest congestion Cardio Cardiology: No shortness of breath or chest pain with exertion Neuro Neurology: Positive for abnormal hearing; no abnormal speech or behavioral changes Psych Psychiatric: No behavioral changes, No abnormal sleep pattern, No difficulty concentrating Exam Const General: cooperative, healthy appearing HENMT Head: normal to inspection Ears: EAC abnormal cerumen impaction bilaterally, TM's normal bilaterally (Normal following irrigation) Mouth: oral mucosae normal Resp Effort AND Inspection: normal respiratory effort Auscultation: Bilateral: Clear to Auscultation Cardio Palpation: normal PMI Rate: regular rate Rhythm: regular rhythm Heart Sounds: S1 normal, S2 normal Neuro General: alert, oriented x3 Psych Appearance: grossly normal Mental Status: mental status grossly normal Assessment AND Plan Problems 1. Bilateral impacted cerumen H61.23 Status Acute Plan Patient received bilateral ear irrigation which was successful. Advised patient against use of Q-tips and to only use a washcloth to clean the outside of her ears. Advised of potential red flags and when appropriate report to the ED. Patient verbalized understanding all of the above. Coding Level of Care Code Off vis,est,level 3 Diagnoses Bilateral impacted cerumen H61.23 10/06/17 1402 <Electronically signed by Sina HARTLEY> Date Sina HARTLEY Cosigner Signature: Date (if applicable) CC: PROGRESS Observed: 09/05/2017 Status: COMPLETED Source: [place] 9:42 AM [facility] REPOSITORY HNO ID: [id number] Author: Nida John II Service: (none) Author Type: HEALTH CARE LAW SPECIALIST Type: Progress Notes Filed: 09/05/2017 9:45 AM Note Text: ASSESSMENT/PLAN: 1. Myopia, bilateral - ICD9: 367.1, ICD10: H52.13 (primary diagnosis) 2. 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 Ocular health maintained with contact lens use. Power stable right eye but small increase needed OS. Continue with daily disposable contact lenses. Recheck in one year. I have confirmed and edited as necessary the relevant ophthalmic history, review of systems, surgical history, and ophthalmological examination findings as obtained by the ophthalmic technical staff. I have seen and examined Sandra Schultz. I have discussed the examination findings, diagnosis, and treatment options with the patient and/or the patient's family. I have also reviewed and agree with the assessment and plan as stated above and agree with all its relevant components. I gave the patient the opportunity to ask questions about the findings, diagnosis, and treatment options. Nida John II, OD HOSP Observed: 09/05/2017 Status: COMPLETED Source: [place] 9:00 AM [facility] REPOSITORY Office Visit OPHT (OPTLOU) SANDRA SCHULTZ ([id number]) 1995 F Date Time Provider Department 09/05/17 9:00 AM NIDA JOHN II During your visit today, we recorded the following information about you: Nida John II, OD 09/05/2017 9:45 AM Signed ASSESSMENT/PLAN: 1. Myopia, bilateral - ICD9: 367.1, ICD10: H52.13 (primary diagnosis) 2. 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 Ocular health maintained with contact lens use. Power stable right eye but small increase needed OS. Continue with daily disposable contact lenses. Recheck in one year. I have confirmed and edited as necessary the relevant ophthalmic history, review of systems, surgical history, and ophthalmological examination findings as obtained by the ophthalmic technical staff. I have seen and examined Sandra Schultz. I have discussed the examination findings, diagnosis, and treatment options with the patient and/or the patient's family. I have also reviewed and agree with the assessment and plan as stated above and agree with all its relevant components. I gave the patient the opportunity to ask questions about the findings, diagnosis, and treatment options. Nida John, II, OD Nida John, II, OD 09/05/2017 9:44 AM Signed ASSESSMENT/PLAN: 1. Myopia, bilateral - ICD9: 367.1, ICD10: H52.13 (primary diagnosis) 2. 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 Ocular health maintained with contact lens use. Power stable right eye but small increase needed OS. Continue with daily disposable contact lenses. Recheck in one year. Referring Provider: SELF [200] Allergies As of Date: 09/05/2017 (No Known Allergies) Date Reviewed: 09/05/2017 Reviewed by: Nida John II - Fully Assessed Reason for Visit: Contact lens evaluation [2256] Primary Visit Diagnosis:Myopia, bilateral [H52.13] Other Visit Diagnosis:Regular astigmatism of right eye [H52.221] Order(s):VISUAL FIELD C-40 SCREENING OU [[id number]] Order #: [id number]: 1 Prescriptions as of 09/05/2017 Sig: EPIDUO FORTE 0.3 %-2.5 % TOPI* PROBIOTIC 4X ORAL Take by mouth. SPIRONOLACTONE 50 MG TABLET NORETHINDRONE-MESTRANOL 1 MG-* Take by mouth. DOXYCYCLINE MONOHYDRATE 50 MG* CARBAMAZEPINE ER 400 MG TABLE* Medication notes this encounter EPIDUO FORTE 0.3 %-2.5 % TOPICAL GEL WITH PUMP >> Hanna Newsome Psr 09/05/2017 9:05 AM >> MEL WADEHANNA Phong Sep 05, 2017 9:05 AM Received from: External Pharmacy Problem List As Of Date 09/05/2017 Noted Resolved Examination of eyes and vision [Z01.00] INVALID FOR* Myopia [H52.10] INVALID FOR* Astigmatism, regular [H52.229] INVALID FOR* Other instructions from your clinician: ASSESSMENT/PLAN: 1. Myopia, bilateral - ICD9: 367.1, ICD10: H52.13 (primary diagnosis) 2. 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 Ocular health maintained with contact lens use. Power stable right eye but small increase needed OS. Continue with daily disposable contact lenses. Recheck in one year. Disposition: Return in about 1 year (around 09/05/2018). Follow-up and Disposition History Recorded Letter Text Encounter Status:Closed by NIDA JOHN II OD on 09/05/17 ALLERGIES ALLERGIES DATE TYPE / CODE NAME / CODE REACTION SEVERITY SOURCE 07/12/2018 Drug No Known Unknown [facility] Allergy/416 Allergies/S16074 [facility] 185764(SNOM 0388(RXNORM) Repository ED CT) Drug/058997 No Known Confucianism [facility]) System Repository Drug NO KNOWN [facility] Class/81171 ALLERGIES [place] 1003(SNOMED Repository CT) ENCOUNTERS ENCOUNTERS ADMIT/DISCHARGE ACCOUNT NUMBER ADMITTING ENCOUNTER LOCATION SOURCE CLASS 08/28/2018/08/28/20 [id number] Ambulatory [address] [place] Repository 08/13/2018 [id number] Ambulatory [facility] ding:LABSPEC Repository 07/12/2018/07/12/20 [id number] Ambulatory BMSBuilding: [address] Repository 07/08/2018/07/08/20 [id number] [facility] Confucianism Confucianism [facility] ding:CD:[address] [place] [address] [id number]: Repository CD:[id number] 06/21/2018/06/22/20 [id number] Ambulatory [address] Repository 06/04/2018/06/04/20 [id number] Ambulatory [address] Repository 05/22/2018 [id number] Ambulatory [facility] ding:WOBLAB Repository 03/23/2018/03/23/[id number] ding:CD:1320 [facility] [address]Nvzi: Repository CD:[id number] 03/20/2018/03/23/20 [id number] Ambulatory [address] Repository 02/18/2018/02/19/20 [id number] Emergency [address] ding:ED Repository 02/18/2018 [id number] Ambulatory [facility] ding:LABSPEC Repository 02/17/2018/02/18/20 [id number] Ambulatory BMSBuilding: Jadyn 18 [facility] Repository 02/14/2018/02/15/[id number] ding:[facility] Repository 02/14/2018/02/15/[id number] ding:CD:132 [facility] [address]Xwak: Repository CD:[id number] 02/14/2018 [id number] Ambulatory [address] [place] [address] Repository 01/25/2018 [id number] Ambulatory [facility] ding:LAB Repository 01/02/2018 [id number] Ambulatory [facility] ding:WOBLAB Repository 12/29/2017/01/02/20 [id number] Ambulatory [address] Repository 11/27/2017 [id number] Ambulatory [facility] ding:MTLAB Repository 11/27/2017/11/28/19 [id number] Ambulatory BMSBuilding: [place] 18 [facility] Repository 10/17/2017/10/24/19 [id number] Ambulatory [address] Repository 10/06/2017/10/06/19 [id number] Ambulatory BMSBuilding: Jadyn 18 [facility] Repository 09/05/2017/09/07/20 [id number] Ambulatory [address] Repository PAYERS PAYERS ENCOUNTER GUARANTOR PAYER SUBSCRIBER SOURCE 08/13/2018 SANDRA Gardner Primary Nabila [id number] CR Insurance:ANTHEMPolic EsselburnDOB: [address], y Number: [id number] [address]Seq: [id number] Repository Date:9208-25-26VE BOX () [address] [place] [address] 01750XQ: 08/13/2018 Secondary NOT GIVENUNK Jadyn Insurance:SELF PAY [facility] Number: Effective Repository Date:2018-08-13 07/12/2018 SANDRA E Primary Nabila Salamanca [id number] CR Insurance:ANTHEMPolic EsselburnDOB: [address], y Number: [id number] [facility] Medical Center [address]Xqt: [id number] Repository Date:5890-71-15LX BOX () [address] [place] [address] 17462DV: 07/12/2018 Secondary NOT GIVENUNK [place] Insurance:SELF PAY [facility] Number: Effective Repository Date:2018-07-12 07/08/2018 SANDRA Kendra Primary NABILA Jackson ESSJUANBURNDOB: Insurance:ANTHEMPolic ESSELBURNDOB: [facility] y Number: Effective [id number] Date:2018-07-08 - [facility]LY [facility] [address] Repository [address] [place], [place] [id number] Name:[place] [address]Ewq: [id number], [place] [address]Sxi: [phone]: [phone]) (HP) [phone] (HP) (WP) 05/22/2018 SANDRA E Primary Nabila Salamanca [id number] CR Insurance:ANTHEMPolic EsselburnDOB: [address], y Number: [id number] [facility] Medical Center [address]Buc: [id number] Repository Date:0645-06-40HV BOX (HP) [id number] [place] [id number]: 05/22/2018 Secondary NOT GIVENUNK Jadyn Insurance:SELF PAY [facility] Number: Effective Repository Date:2018-05-22 03/23/2018 SANDRA Gardner Primary NABILA Jackson ESSELBURNDOB: Insurance:ANTHEMPolic ESSELBURNDOB: [facility] y Number: Effective [id number] Date:2018-03-23 FORMERLY [facility] [address] Repository [address] [place] [address] [id number] [place] [address] Name:[facility] [address]Dcw: [id number], [place] [address]Whk: [id number]: [phone]) (HP) [phone] (HP) (WP) 02/18/2018 SANDRA E Primary Nabila Salamanca [id number] CR Insurance:ANTHEMPolic EsselburnDOB: [address], y Number: [id number] Regional Medical Center [address]San: [id number] Repository Date:6804-10-96AS BOX () [id number], [place] [address]AM: 02/18/2018 Secondary NOT GIVENUNK [place] Insurance:SELF PAY [facility] Number: Effective Repository Date:2018-02-18 02/18/2018 SANDRA Gardner Primary Nabila Salamanca [id number] CR Insurance:ANTHEMPolic EsselburnDOB: [address], y Number: [id number] Regional Medical Center [address]Nwx: [id number] Repository Date:2550-74-92XF BOX () [id number], [place] [address]ZH: 02/18/2018 Secondary NOT GIVENUNK [place] Insurance:SELF PAY [facility] Number: Effective Repository Date:2018-02-18 02/17/2018 SANDRA Gardner Primary Nabila Jadyn [id number] CR Insurance:ANTHEMPolic EsselburnDOB: Community [address] [place] [address], y Number: [id number] Regional Medical Center [address]Dnc: [id number] Repository Date:4598-12-99HN BOX () 419[address]HMHAANZ, [place] [address]IW: 02/17/2018 Secondary NOT GIVENUNK Jadyn Insurance:SELF PAY [facility] Number: Effective Repository Date:2018-02-17 02/14/2018 SANDRA E Primary NABILA Garnicaaritan ESSELBURNDOB: Insurance:ANTHEMPolic ESSELBURNDOB: [facility] y Number: Effective [id number] Date:2018-02-14 - [address] [id number] [address] [place] [address] Name:Erlin SproutelHAWTHORN [facility] [address]Dqc: [id number], [place] [address]Odf: [id number]: [phone]) (HP) [phone] (HP) () 02/14/2018 SANDRA E Primary NABILA Garnicaaritan ESSELBURNDOB: Insurance:ANTHEMPolic ESSELBURNDOB: [facility] y Number: Effective [id number] Date:2018-02-14 - [facility]LY [facility] [address] [id number] [address] [place] [address] Name:Erlin [facility] [address]Dnc: [id number], [place] [address]Fen: [id number]: [phone]) (HP) [phone] (HP) () 02/14/2018 SANDRA [facility] ESSELBURNDOB: Insurance:AnthemPolic ESSELBURNDOB: [facility] y Number: [id number] Repository [facility] [address] [id number] [address] [place] [address], Date:Plan Name:[facility] [id number]: () 01/25/2018 SANDRA [facility] Nabila Gonzalezoster [id number] CR Insurance:ANTHEMPolic EsselburnDOB: [address], y Number: [id number] Regional Medical Center [address]Omc: [id number] Repository Date:3257-07-01MG BOX () MECCA RAMIREZ [address]CQ: 01/25/2018 Secondary NOT GIVENUNK Jadyn Insurance:SELF PAY [facility] Number: Effective Repository Date:2018-01-25 01/02/2018 [facility]abila [facility]77 CR Insurance:ANTHEMPolic EsselburnDOB: [address], y Number: [id number] Regional Medical Center [address]Kmy: [id number] Repository Date:8684-40-36OM BOX () MECCA RAMIREZ [address]BU: 01/02/2018 Secondary NOT GIVENUNK Jadyn Insurance:SELF PAY [facility] Number: Effective Repository Date:2018-01-02 11/27/2017 SANDRA [facility] Nabila GonzalezGib[facility]77 CR Insurance:ANTHEMPolic EsselburnDOB: [address], y Number: [id number] Regional Medical Center [address]Hbs: [id number] Repository Date:3475-84-01QI BOX () MECCA RAMIREZ [address]EK: 11/27/2017 Secondary NOT GIVENUNK [place] Insurance:SELF PAY [facility] Number: Effective Repository Date:2017-11-27 11/27/2017 [facility] Primary Nabila Salamanca [id number] CR Insurance:ANTHEMPolic EsselburnDOB: Community [address] [place] [address], y Number: [id number] Regional Medical Center [address]Wga: [id number] Repository Date:7545-28-37VX BOX () 199840SCPHAJJ, [place] [address]KU: 11/27/2017 Secondary NOT GIVENUNK [place] Insurance:SELF PAY [facility] Number: Effective Repository Date:2017-11-27 10/06/2017 [facility] Nabila Salamanca [id number] CR Insurance:ANTHEMPolic EsselburnDOB: [address], y Number: [id number] Regional Medical Center [address]Prx: [id number] Repository Date:5548-57-86AP BOX () 670922AMXOUCS, [place] [address]CE: 10/06/2017 Secondary NOT GIVENUNK Jadyn Insurance:SELF PAY [facility] Number: Effective Repository Date:2017-10-06
== END ==
PROVIDERS: Family Provider Family Medicine; PCP Family Medicine; Referring Provider Nurse Practitioner Acute Care; Visit Provider Nurse Practitioner Acute Care
DX: R56.9 Unspecified convulsions (principal)
CPT/HCPCS: 36415; 80048; 80156; 82306; 82607; 82746; 83735; 84100; 85027

== ENCOUNTER → 2018-09-27 14:43 | Outpatient (CLI) | payer BC, SELFPAY ==
[2018-07-12 15:50] VITALS: BMI 25.1
[2018-09-27 17:46] LABS: Progesterone Level 0.33 ng/mL (See Comment)
== END ==
PROVIDERS: Family Provider Family Medicine; PCP Family Medicine; Visit Provider Obstetrics & Gynecology
DX: N92.6 Irregular menstruation, unspecified (principal)
CPT/HCPCS: 36415; 84144

== ENCOUNTER → 2018-10-03 11:20 | Outpatient (CLI) | payer BC, SELFPAY ==
[2018-10-03 12:52] LABS: Progesterone Level 0.76 ng/mL (See Comment)
--- OUTSIDE RECORDS SUMMARY | 2018-12-08 07:33 | XMS RPT_ITS ---
:1995 Author Organization OHIP Support Name Relationship Address Phone LYNSEY KISHA/NABILA Unavailable [address] + [place] [address] S Unavailable Unavailable Unavailable KISHA SCHULTZ/NABILA Unavailable [address] + [place] [address] S Unavailable Unavailable Unavailable KISHA SCHULTZ/NABILA Unavailable [address] + [place] [address] S Unavailable Unavailable Unavailable KISHA SCHULTZ/NABILA Unavailable [address] + [place] [address] S Unavailable Unavailable Unavailable KISHA SCHULTZ/NABILA Unavailable [address] + [place] [address] S Unavailable Unavailable Unavailable KISHA SCHULTZ/NABILA Unavailable [address] + [place] [address] S Unavailable Unavailable Unavailable KISHA SCHULTZ/NABILA Unavailable [address] + [place] [address] S Unavailable Unavailable Unavailable KISHA SCHULTZ/NABILA Unavailable [address] + [place] [address] S Unavailable Unavailable Unavailable KISHA SCHULTZ/NABILA Unavailable [address] + [place] [address] S Unavailable Unavailable Unavailable KISHA SCHULTZ/NABILA Unavailable [address] + [place] [address] S Unavailable Unavailable Unavailable KISHA SCHULTZ/NABILA Unavailable [address] + [place] [address] S Unavailable Unavailable Unavailable KISHA SCHULTZ/NABILA Unavailable [address] + [place] [address] S Unavailable Unavailable Unavailable Care Team Providers Name Role Phone INDIGO JOHN Attending Unavailable MANSI ZHANG (MULTI SLIDE MACHINE TENDER) Attending Unavailable JOSE GARY Referring Unavailable PB SALINAS Referring Unavailable ELISEOER II, NIDA Armando Referring Unavailable PB SALINAS Attending Unavailable JOSE GARY Referring Unavailable COOPERWILMERER II, NIDA H Referring Unavailable COOPERWILMERER II, NIDA H Referring Unavailable Naz You Attending Unavailable JOSE GARY Primary Care Unavailable Lorne Ruelas Attending Unavailable JOSE GARY Referring Unavailable TOMJOSE MAN Primary Care Unavailable Lorne Ruelas Attending Unavailable Lorne Ruelas Referring Unavailable TOMJOSE MAN Primary Care Unavailable Naz You Attending Unavailable Naz You Attending Unavailable Kellie Celeste MULTI SLIDE MACHINE TENDER-C Attending Unavailable Kellie Celeste MULTI SLIDE MACHINE TENDER-C Referring Unavailable TOMJOSE MAN Primary Care Unavailable Tariq Koenig MULTI SLIDE MACHINE TENDER-C Attending Unavailable JOSE GARY Referring Unavailable TOMJOSE MAN Primary Care Unavailable Tariq Koenig MULTI SLIDE MACHINE TENDER-C Attending Unavailable Tariq Koenig MULTI SLIDE MACHINE TENDER-C Referring Unavailable JOSE GARY Primary Care Unavailable James Oliveira Attending Unavailable Naz You Attending Unavailable Omi Rosales Attending Unavailable JOSE GARY Referring Unavailable Kellie Celeste MULTI SLIDE MACHINE TENDER-C Attending Unavailable Kellie Celeste MULTI SLIDE MACHINE TENDER-C Referring Unavailable JOSE GARY Primary Care Unavailable Ehsan Price Admitting Unavailable [...] TYPE CONDITION / CODE ATTENDING STATUS SOURCE 10/03/2018 Unknown N97.0 - Female Kenyatta, Active [facility] infertility [facility] associated with Hospital anovulation / Repository N97.0(ICD-10) 08/28/2018 Active Abnormal results of [facility] [place] thyroid function Clinic Main studies / [place] R94.6(ICD-10) Repository 08/28/2018 Active Other specified [facility] [place] abnormal findings of Clinic Main blood chemistry / [place] R79.89(ICD-10) Repository 08/28/2018 Active Other specified NA Active [place] hypothyroidism / Clinic Main E03.8(ICD-10) [place] Repository 08/28/2018 Active Irregular NA Active [place] menstruation, Clinic Main unspecified / [place] N92.6(ICD-10) Repository 08/28/2018 Active Other fatigue / NA Active [place] R53.83(ICD-10) Clinic Main [place] Repository 08/28/2018 Active Vitamin D NA Active [place] deficiency, Clinic Main unspecified / [place] E55.9(ICD-10) Repository 05/25/2018 Unknown E03.9 - Anu-Real, Active [place] Hypothyroidism, [place] Community unspecified / Hospital E03.9(ICD-10) Repository 03/20/2018 Active Myopia, bilateral / NA Active [place] H52.13(ICD-10) Clinic Main [place] Repository 05/25/2018 Unknown R30.0 - Dysuria / James Oliveira Active [facility]ad[facility] R30.0(ICD-10) [facility] Hospital Repository 02/26/2018 Unknown R35.0 - Frequency of Tariq Koenig Active [place] micturition / MULTI SLIDE MACHINE TENDER-C Community R35.0(ICD-10) Hospital Repository 02/17/2018 Unknown N30.00 - Acute Koenig, Tariq Active [facility] cystitis without MULTI SLIDE MACHINE TENDER-C Community hematuria / Hospital N30.00(ICD-10) Repository 01/02/2018 Unknown N92.6 - Irregular Anu-Real, Active [facility]yn menstruation, [place] Community unspecified / Hospital N92.6(ICD-10) Repository 11/27/2017 Unknown J02.9 - Acute Lorne Ruelas Active [place] pharyngitis, Community unspecified / Hospital J02.9(ICD-10) Repository PROCEDURES PROCEDURES No Procedure Records FoundRESULTS RESULTS PROGESTERONE LEVEL Collected: 10/03/2018 Status: F Source: [place] 11:27 AM [facility] REPOSITORY Order Comment: TODAY IS CYCLE DAY 18. TYPE CODE TESTS RESULT OUT OF REFERENCE UNITS RANGE LAB L509.4001 See Comment ng/mL Progesterone Normal 0.76 Result Comment: Progesterone Reference Table: UNITS Female: Follicular 0.15 - 1.40 ng/mL Luteal 3.34 - 25.56 ng/mL Mid-luteal 4.44 - 28.03 ng/mL Postmenopausal 0.0 - 0.73 ng/mL : 1st Trimester 11.22 - 90.00 ng/mL 2nd Trimester 25.55 - 89.40 ng/mL 3rd Trimester 48.40 -422.50 ng/mL Performed By: #### L509.4001 #### [facility] [address] [place], [address] PROGRESS Observed: 10/01/2018 Status: COMPLETED Source: [place] 10:17 AM [facility] REPOSITORY O ID: [id number] Author: Indigo John Service: (none) Author Type: SILVERWARE WASHER Type: Progress Notes Filed: 10/01/2018 10:20 AM Note Text: ASSESSMENT/PLAN: 1. Myopia of both eyes - ICD9: 367.1, ICD10: H52.13 (primary diagnosis) 2. Regular astigmatism of both eyes - ICD9: 367.21, ICD10: H52.223 Continue to wear her glasses as desired. Her contact lenses are to be worn on a daily basis and replaced after each use. Recommended yearly exams. Indigo John, OD I have confirmed and edited as necessary the relevant ophthalmic history, ROS, and the neuro exam findings as obtained by others. I have seen and examined this patient. I have discussed the case and the management of this patient's care with the Resident/Fellow, if applicable. I also have reviewed and agree with the assessment and plan as stated above and agree with all of its relevant components. PROGESTERONE LEVEL Collected: 09/27/2018 Status: F Source: [place] 2:44 PM [facility]POS[facility] TYPE CODE TESTS RESULT OUT OF REFERENCE UNITS RANGE LAB L509.4001 See Comment ng/mL Progesterone Normal 0.33 Result Comment: Progesterone Reference Table: UNITS Female: Follicular 0.15 - 1.40 ng/mL Luteal 3.34 - 25.56 ng/mL Mid-luteal 4.44 - 28.03 ng/mL Postmenopausal 0.0 - 0.73 ng/mL : 1st Trimester 11.22 - 90.00 ng/mL 2nd Trimester 25.55 - 89.40 ng/mL 3rd Trimester 48.40 -422.50 ng/mL Performed By: #### L509.4001 #### [facility] [address] [place], [address] PROGRESS Observed: 09/06/2018 Status: COMPLETED Source: [place] 3:35 PM [facility] REPOSITORY HNO ID: [id number] Author: Mansi Zhang Service: (none) Author Type: Nurse Practitioner Type: Progress Notes Filed: 09/06/2018 4:04 PM Note Text: Reason for Consultation: Possible thyroid disorder. Referring Physician: Jose Gary MD [address] [facility] [address] HISTORY OF PRESENT ILLNESS; Ms. Schultz is a 23 year old female presenting for follow up regarding possible thyroid disorder. She was initially diagnosed with a thyroid disorder December 2017 Denies fhx of thyroid disease. Denies previous thyroid surgery or ultrasound. LV Dr. salinas 06/04/2018 Had no menses for a year and taken off BC. No BC at this time. LMP: 08/21/2018; menses regular but heavy though 7-10 days early with last. Severity, modifying factors, context and associated signs and symptoms are as follows: ? Thyroid pain: no ? Mass effect: None ? Energy: variable ? Sleep: Normal sleep pattern ? Temperature Intolerance: Cold Intolerance ? TILER'S ASSISTANT: Regular Menses--see above ? GI: denies loose stools, frequent stools or constipation ? Weight: remained stable ? Eyes: No ? Memory: Fair ? Skin: denies skin changes ? Neuro: headaches with menses ? Radiological imaging with contrast dyes within the last 3 months? no ? History of radiation exposure to head or neck area? no PAST MEDICAL HISTORY Diagnosis Date - Epilepsy (HCC) No past surgical history on file. FAMILY HISTORY Problem Relation Age of Onset - Heart Maternal Grandfather - Diabetes Maternal Grandfather - Cancer Other - Diabetes Other - Heart Other Social History Marital status: Single Spouse name: Years of education: Number of children: Social History Main Topics Smoking status: Never Smoker Smokeless tobacco: Never Used Alcohol use: No Drug use: No Current Outpatient Prescriptions: carBAMazepine XR (TEGRETOL XR) 400 mg 12 hr tablet Take 400 mg by mouth twice daily. Disp: Rfl: spironolactone (ALDACTONE) 100 mg tablet Take 100 mg by mouth once daily. Disp: Rfl: B INFANTIS/B ANI/B LAURA/B BIFID (PROBIOTIC 4X ORAL) Take by mouth. Disp: Rfl: doxycycline monohydrate (MONODOX) 50 mg capsule Take 50 mg by mouth once daily. Disp: Rfl: EPIDUO FORTE 0.3-2.5 % glwp Apply 1 application to affected area once daily. Disp: Rfl: 3 Norethindrone-Mestranol 1-50 mg-mcg tab Take by mouth. Disp: Rfl: spironolactone (ALDACTONE) 50 mg tablet Disp: Rfl: No current facility-administered medications for this visit. Allergies As of Date: 09/06/2018 (No Known Allergies) Fully Assessed 09/06/2018 REVIEW OF SYSTEMS: General: no fever and no chills Cardiovascular: denies chest pain, heart palpitations or orthopnea Resp: denies wheezing, productive cough or exertional dyspnea except occasional SOB. PHYSICAL EXAM: BP 104/68 (BP Site: Left Arm, BP Position: Sitting, BP Cuff Size: Regular Adult) Pulse 67 Ht 162 cm (5' 3.78) Wt 64.9 kg (143 lb) SpO2 100% BMI 24.72 kg/m2 Physical Exam Constitutional: She is oriented to person, place, and time and well-developed, well-nourished, and in no distress. No distress. HENT: Head: Normocephalic and atraumatic. Eyes: Right eye exhibits no discharge. Left eye exhibits no discharge. Neck: No thyromegaly present. Cardiovascular: Normal rate and regular rhythm. Pulmonary/Chest: Effort normal and breath sounds normal. Neurological: She is alert and oriented to person, place, and time. Skin: Skin is warm and dry. She is not diaphoretic. Psychiatric: Mood, memory, affect and judgment normal. DATA: No components found for: TOTALT4 Free T4 Date Value Ref Range Status 08/28/2018 1.2 0.9 - 1.7 ng/dL Final No components found for: TOTALT3 TSH Date Value Ref Range Status 08/28/2018 0.734 0.400 - 5.500 uU/mL Final Comment: If the patient is , TSH reference range varies by gestational period: First Trimester 0.100-2.500 uU/mL Second Trimester 0.200-3.000 uU/mL Third Trimester 0.300-3.000 uU/mL References: 1. Stone L, James M, Brian EK, et al. Management of Thyroid Dysfunction during and : An Endocrine Society Clinical Practice Guideline. J Clin Endocrinol Metab, 2012:97:8562-1368. 2. Bertram LIVE. Overview of thyroid disease in . UpToDate. 2016. Accessed on March 04, 2016. Free T3 Date Value Ref Range Status 08/28/2018 2.4 2.3 - 4.1 pg/mL Final No results found for: MICROSOMAB RADIOLOGY: US Thyroid was not done. ASSESSMENT: Ms. Schultz is a 23 year old female presenting for follow up regarding possible thyroid disorder. RECOMMENDATIONS: (R94.6) Abnormal results of thyroid function studies (primary encounter diagnosis) Comment: Repeat testing of her TFT show normal TSH, free T3, free T4. The T4 and FTI are low however likely insignificant finding in the setting of normal free hormones and lack of thyroid related symptoms. Case/labs were reviewed with Dr. Youssef Plan: Medication is not indicated at this time. Recommend PCP check TFT (TSH, free T3, free T4) yearly or if symptoms change. Follow up with endocrinology PRN. Mansi Zhang APRN, NP-C Endocrinology [facility] Medical Office [facility]/[address] [place] [address] Fax: CNOV Observed: 09/06/2018 Status: COMPLETED Source: [place] 3:15 PM [facility] REPOSITORY Office Visit (ENDMED) LYNSEYSANDRA ([id number]) 1995 F Date Time Provider Department 09/06/18 3:15 PM MANSI ZHANG) RADHIKA During your visit today, we recorded the following information about you: Pulse Blood pressure Weight Height 67/minute 104/68 64.9 kg 1.62 m Mansi Zhnag APRN.MAINTENANCE WELDER 09/06/2018 4:04 PM Signed Reason for Consultation: Possible thyroid disorder. Referring Physician: Jose Gary MD [address] [facility] [address] HISTORY OF PRESENT ILLNESS; Ms. Schultz is a 23 year old female presenting for follow up regarding possible thyroid disorder. She was initially diagnosed with a thyroid disorder December 2017 Denies fhx of thyroid disease. Denies previous thyroid surgery or ultrasound. LISSETH salinas 06/04/2018 Had no menses for a year and taken off BC. No BC at this time. LMP: 08/21/2018; menses regular but heavy though 7-10 days early with last. Severity, modifying factors, context and associated signs and symptoms are as follows: ? Thyroid pain: no ? Mass effect: None ? Energy: variable ? Sleep: Normal sleep pattern ? Temperature Intolerance: Cold Intolerance ? TILER'S ASSISTANT: Regular Menses--see above ? GI: denies loose stools, frequent stools or constipation ? Weight: remained stable ? Eyes: No ? Memory: Fair ? Skin: denies skin changes ? Neuro: headaches with menses ? Radiological imaging with contrast dyes within the last 3 months? no ? History of radiation exposure to head or neck area? no PAST MEDICAL HISTORY Diagnosis Date - Epilepsy (HCC) No past surgical history on file. FAMILY HISTORY Problem Relation Age of Onset - Heart Maternal Grandfather - Diabetes Maternal Grandfather - Cancer Other - Diabetes Other - Heart Other Social History Marital status: Single Spouse name: Years of education: Number of children: Social History Main Topics Smoking status: Never Smoker Smokeless tobacco: Never Used Alcohol use: No Drug use: No Current Outpatient Prescriptions: carBAMazepine XR (TEGRETOL XR) 400 mg 12 hr tablet Take 400 mg by mouth twice daily. Disp: Rfl: spironolactone (ALDACTONE) 100 mg tablet Take 100 mg by mouth once daily. Disp: Rfl: B INFANTIS/B ANI/B LAURA/B BIFID (PROBIOTIC 4X ORAL) Take by mouth. Disp: Rfl: doxycycline monohydrate (MONODOX) 50 mg capsule Take 50 mg by mouth once daily. Disp: Rfl: EPIDUO FORTE 0.3-2.5 % glwp Apply 1 application to affected area once daily. Disp: Rfl: 3 Norethindrone-Mestranol 1-50 mg-mcg tab Take by mouth. Disp: Rfl: spironolactone (ALDACTONE) 50 mg tablet Disp: Rfl: No current facility-administered medications for this visit. Allergies As of Date: 09/06/2018 (No Known Allergies) Fully Assessed 09/06/2018 REVIEW OF SYSTEMS: General: no fever and no chills Cardiovascular: denies chest pain, heart palpitations or orthopnea Resp: denies wheezing, productive cough or exertional dyspnea except occasional SOB. PHYSICAL EXAM: BP 104/68 (BP Site: Left Arm, BP Position: Sitting, BP Cuff Size: Regular Adult) Pulse 67 Ht 162 cm (5' 3.78) Wt 64.9 kg (143 lb) SpO2 100% BMI 24.72 kg/m2 Physical Exam Constitutional: She is oriented to person, place, and time and well-developed, well-nourished, and in no distress. No distress. HENT: Head: Normocephalic and atraumatic. Eyes: Right eye exhibits no discharge. Left eye exhibits no discharge. Neck: No thyromegaly present. Cardiovascular: Normal rate and regular rhythm. Pulmonary/Chest: Effort normal and breath sounds normal. Neurological: She is alert and oriented to person, place, and time. Skin: Skin is warm and dry. She is not diaphoretic. Psychiatric: Mood, memory, affect and judgment normal. DATA: No components found for: TOTALT4 Free T4 Date Value Ref Range Status 08/28/2018 1.2 0.9 - 1.7 ng/dL Final No components found for: TOTALT3 TSH Date Value Ref Range Status 08/28/2018 0.734 0.400 - 5.500 uU/mL Final Comment: If the patient is , TSH reference range varies by gestational period: First Trimester 0.100-2.500 uU/mL Second Trimester 0.200-3.000 uU/mL Third Trimester 0.300-3.000 uU/mL References: 1. Weinstein, James M, Brian JAY, et al. Management of Thyroid Dysfunction during and : An Endocrine Society Clinical Practice Guideline. J Clin Endocrinol Metab, 2012:97:2543- 2565. 2. Bertram LIVE. Overview of thyroid disease in . UpToDate. 2016. Accessed on March 04, 2016. Free T3 Date Value Ref Range Status 08/28/2018 2.4 2.3 - 4.1 pg/mL Final No results found for: MICROSOMAB RADIOLOGY: US Thyroid was not done. ASSESSMENT: Ms. Schultz is a 23 year old female presenting for follow up regarding possible thyroid disorder. RECOMMENDATIONS: (R94.6) Abnormal results of thyroid function studies (primary encounter diagnosis) Comment: Repeat testing of her TFT show normal TSH, free T3, free T4. The T4 and FTI are low however likely insignificant finding in the setting of normal free hormones and lack of thyroid related symptoms. Case/labs were reviewed with Dr. Youssef Plan: Medication is not indicated at this time. Recommend PCP check TFT (TSH, free T3, free T4) yearly or if symptoms change. Follow up with endocrinology PRN. Mansi Zhang APRN, PATRIZIAC Endocrinology [facility] Office [facility]/[address] [place] [address] Fax: Referring Provider: JOSE GARY [[id number]] Allergies As of Date: 09/06/2018 (No Known Allergies) Date Reviewed: 09/06/2018 Reviewed by: Mansi (Garry) Catarino - Fully Assessed Reason for Visit: Thyroid Problem [110] Primary Visit Diagnosis:Abnormal results of thyroid function studies [R94.6] Prescriptions as of 09/06/2018 Sig: CARBAMAZEPINE ER 400 MG TABLE* Take 400 mg by mouth twice da* SPIRONOLACTONE 100 MG TABLET Take 100 mg by mouth once kathy* SPIRONOLACTONE 50 MG TABLET Medication notes this encounter SPIRONOLACTONE 100 MG TABLET >> Anju Rudolph Ma 09/06/2018 3:21 PM >> ANJU RUDOLPH MA Sep 06, 2018 3:21 PM Taking 150mg daily SPIRONOLACTONE 50 MG TABLET >> Anju Rudolph Ma 09/06/2018 3:21 PM >> ANJU RUDOLPH MA Sep 06, 2018 3:21 PM Wrong dose PROBIOTIC 4X ORAL >> Anju Rudolph Ma 09/06/2018 3:21 PM >> ANJU RUDOLPH MA Sep 06, 2018 3:21 PM D/c DOXYCYCLINE MONOHYDRATE 50 MG CAPSULE >> Anju Rudolph Ma 09/06/2018 3:21 PM >> ANJU RUDOLPH MA Sep 06, 2018 3:21 PM D/c EPIDUO FORTE 0.3 %-2.5 % TOPICAL GEL WITH PUMP >> Anju Rudolph Ma 09/06/2018 3:21 PM >> ANJU RUDOLPH MA Sep 06, 2018 3:21 PM D/c NORETHINDRONE-MESTRANOL 1 MG-50 MCG TABLET >> Anju Rudolph Ma 09/06/2018 3:21 PM >> ANJU RUDOLPH MA Sep 06, 2018 3:21 PM D/c Problem List As Of Date 09/06/2018 Noted Resolved Examination of eyes and vision [Z01.00] INVALID FOR* Myopia [H52.10] INVALID FOR* Astigmatism, regular [H52.229] INVALID FOR* Medications Discontinued During This Encounter B INFANTIS/B ANI/B LAURA/B BIFID (PROB* 09/06/2018 Class: Historical Med Route: ORAL Sig: Take by mouth. Disc: Reason for discontinue is not on file. doxycycline monohydrate (MONODOX) 50* 05/11/2015 09/06/2018 Class: Historical Med Route: ORAL Sig: Take 50 mg by mouth once daily. Disc: Reason for discontinue is not on file. EPIDUO FORTE 0.3-2.5 % glwp 3 08/22/2017 09/06/2018 Class: Historical Med Route: TOPICAL Sig: Apply 1 application to affected area once daily. Disc: Reason for discontinue is not on file. Norethindrone-Mestranol 1-50 mg-mcg * 09/06/2018 Class: Historical Med Route: ORAL Sig: Take by mouth. Disc: Reason for discontinue is not on file. Follow-up and Disposition History Recorded Encounter Status:Closed by MANSI ZHANG on 09/06/18 TSH Collected: 08/28/2018 Status: F Source: [place] 1:30 PM [facility] REPOSITORY TYPE CODE TESTS RESULT OUT OF RANGE REFERENCE UNITS LAB TSH 0.400-5.500 uU/mL TSH 0.734 Result Comment: If the patient is , TSH reference range varies by gestational period: First Trimester 0.100-2.500 uU/mL Second Trimester 0.200-3.000 uU/mL Third Trimester 0.300-3.000 uU/mL References: 1. Weinstein, James M, Brian EK, et al. Management of Thyroid Dysfunction during and : An Endocrine Society Clinical Practice Guideline. J Clin Endocrinol Metab, 2012:97:4598-3611. 2. Bertram LIVE. Overview of thyroid disease in . UpToDate. 2016. Accessed on March 04, 2016. Performed By: #### TSH, LH, FSH, FT4, FREET3, T4FTI, VITD #### [facility] [address] [place], [place] [address] LH Collected: 08/28/2018 Status: F Source: [facility] 1:30 PM [facility] REPOSITORY TYPE CODE TESTS RESULT OUT OF RANGE REFERENCE UNITS LAB LH mU/mL LH 7.0 Result Comment: Reference range: Follicular: 1-12 Midcycle: 20-90 Luteal: 1-10 Post [place]: >20 Performed By: #### TSH, LH, FSH, FT4, FREET3, T4FTI, VITD #### [facility] [address] [place], [place] [address] FSH Collected: 08/28/2018 Status: F Source: [place] 1:30 PM [facility] REPOSITORY TYPE CODE TESTS RESULT OUT OF RANGE REFERENCE UNITS LAB FSH mU/mL FSH 5.3 Result Comment: Reference range: Follicular: 2-11 Midcycle: 10-30 Luteal: 1-9 Post [place]: 20-100 Performed By: #### TSH, LH, FSH, FT4, FREET3, T4FTI, VITD #### [facility] [address] [place], [place] [address] FREE T4 Collected: 08/28/2018 Status: F Source: [place] 1:30 PM [facility] REPOSITORY TYPE CODE TESTS RESULT OUT OF RANGE REFERENCE UNITS LAB FT4 0.9-1.7 ng/dL Free T4 1.2 Performed By: #### TSH, LH, FSH, FT4, FREET3, T4FTI, VITD #### [facility] [address] [id number] FREE T3 Collected: 08/28/2018 Status: F Source: [place] 1:30 PM [facility] REPOSITORY TYPE CODE TESTS RESULT OUT OF RANGE REFERENCE UNITS LAB FREET3 2.3-4.1 pg/mL Free T3 2.4 Performed By: #### TSH, LH, FSH, FT4, FREET3, T4FTI, VITD #### [facility] [place] [id number] T4/FTI Collected: 08/28/2018 Status: F Source: [place] 1:30 PM [facility] REPOSITORY TYPE CODE TESTS RESULT OUT OF REFERENCE UNITS RANGE LAB T4 5.5-10.2 ug/dL Low T4 5.3 LAB T4U 0.91-1.19 T4 Uptake 1.04 LAB FTI 5.3-10.8 ug/dL Low FTI 5.1 Performed By: #### TSH, LH, FSH, FT4, FREET3, T4FTI, VITD #### [facility] [place] [id number] VITAMIN D 25 HYDROXY Collected: 08/28/2018 Status: F Source: [place] 1:30 PM [facility] REPOSITORY TYPE CODE TESTS RESULT OUT OF REFERENCE UNITS RANGE LAB VITD 31.0-80.0 ng/mL Vitamin D 25 31.2 Hydroxy Result Comment: Classification of 25 [place] Vitamin D status: Insufficiency/Moderate Deficiency: < or = 30 ng/mL Sufficiency/Optimal Levels: 31 to 80 ng/mL Toxicity: > 100 ng/mL Test performed by chemiluminescent immunoassay. Performed By: #### TSH, LH, FSH, FT4, FREET3, T4FTI, VITD #### [facility] [place], [place] [address] CNCO Observed: 08/28/2018 Status: COMPLETED Source: [place] 12:00 AM [facility] REPOSITORY Letter Text Dear Sandra Schultz: How to activate your [facility] [employer] Account 1. Visit the [employer] Signup page at [email or web address] 2. Identify yourself using your one-time use activation code: [email or web address] 3. Follow the on-screen prompts to choose [...] information on the Identify Yourself Form at [email or web address] , click Next. Create your login and password, choose a [employer] ID and password that will be easy for you to use, but impossible for anyone else to guess. Pick a security question that will assist you in the event you forget your password the next time you log-on. If you have difficulty activating your account, please call our [employer] helpline at [phone] or toll free at . We hope you enjoy using [employer]! Kindest Regards, [facility] [employer] Team CBC-COMPLETE BLOOD CNT Collected: 08/13/2018 Status: F Source: [place] NO DIFF 2:16 PM [facility] TYPE CODE TESTS RESULT OUT OF [...] MPV 8.8 Performed By: #### L100.0500 #### [facility] [address] [place], [address] CARBAMAZEPINE (TEGRETOL) Collected: 08/13/2018 Status: F Source: [place] 2:16 PM [facility] TYPE CODE TESTS RESULT OUT OF REFERENCE UNITS RANGE LAB L501.7900 4.0-12.0 ug/mL CARBAMAZEPINE Normal 7.1 Performed By: #### L501.7900 #### [facility] [address] [place], [address] VITAMIN B12 Collected: 08/13/2018 Status: F Source: [place] 2:16 PM [facility] TYPE CODE TESTS RESULT OUT OF RANGE REFERENCE UNITS LAB L503.0105 211-911 pg/mL Normal Vitamin B12 815 Performed By: #### L503.0105, L506.1000 #### [facility] [address] [place], [address] VITAMIN D,25 HYDROXY Collected: 08/13/2018 Status: F Source: [place] 2:16 PM [facility] TYPE CODE TESTS RESULT OUT OF REFERENCE UNITS RANGE LAB L506.1000 29.95-100.01 ng/mL Low Vitamin D 29.0 25-OH Result Comment: Vitamin D 25(OH) Status Range Deficiency <20 ng/mL (50nmol/L) Insuffciency 20 - 30 ng/mL (50 - 75 nmol/L) Sufficiency 30 - 100 ng/mL (75 - 250 nmol/L) Toxicity >100 ng/mL (>250 nmol/L) Performed By: #### L503.0105, L506.1000 #### [facility] [address] [place], [address] BASIC METABOLIC Collected: 08/13/2018 Status: F Source: [place] PROFILE (BMP) 2:16 PM [facility] Order Comment: Is Patient Taking Vitamins [...] By: #### L500.2500, L501.2300, L501.5200, L506.0250 #### [facility] [address] [facility] [place], [place], [id number] PHOSPHORUS Collected: 08/13/2018 Status: F Source: [place] 2:16 PM [facility] Order Comment: Is Patient Taking Vitamins or Folic Acid Supplements? N TYPE CODE TESTS RESULT OUT OF RANGE REFERENCE UNITS LAB L501.2300 2.5-4.9 mg/dL Normal PHOS 3.0 Performed By: #### L500.2500, L501.2300, L501.5200, L506.0250 #### [facility] [address] [facility] [place], [address] MAGNESIUM Collected: 08/13/2018 Status: F Source: [place] 2:16 PM [facility] Order Comment: Is Patient Taking Vitamins or Folic Acid Supplements? N TYPE CODE TESTS RESULT OUT OF RANGE REFERENCE UNITS LAB L501.5200 1.6-2.6 mg/dL Normal MG 2.0 Performed By: #### L500.2500, L501.2300, L501.5200, L506.0250 #### [facility] [address] [place], [address] FOLATES, (FOLIC ACID) Collected: 08/13/2018 Status: F Source: [place] 2:16 PM [facility] Order Comment: Is Patient Taking Vitamins or Folic Acid Supplements? N TYPE CODE TESTS RESULT OUT OF RANGE REFERENCE UNITS LAB L506.0250 3.1-55.4 ng/mL Normal FOLATES 26.80 Performed By: #### L500.2500, L501.2300, L501.5200, L506.0250 #### [facility] [address] [place], [address] PLASTIC SURGERY Observed: 07/15/2018 Status: F Source: [place] VISIT REPORT 8:19 PM [facility] [place] [facility] [address] [place] [address] OFFICE VISIT Date of Service: 07/12/18 MR#: [id number] Acct: [id number] Name: SANDRA SCHULTZ Rep #: [id number] : 1995 Provider: Omi Rosales MD Age/Sex: 23/F Location: [facility] Status: Signed Intake Vital Signs07/12/18 Height 5 ft 3 in 07/12/18 Weight: 142 lb Intake Visit Reasons: evaluation post-traumatic hematoma soft tissue mass contour deformity right anterior thigh Oil Well Fishing Tool Operator Required: No Accompanied by: None Is patient [...] denies any numbness. 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 in [...] MD PROGRESS Observed: 06/04/2018 Status: COMPLETED Source: [place] 3:16 PM [facility] [place] REPOSITORY [facility] ID: [id number] Author: Pb [place] Service: (none) Author Type: Physician Type: Progress Notes Filed: 07/15/2018 6:41 PM Note Text: Reason for Consultation: Hypothyroidism - possible secondary (low FT3, low Ft4, low normal TSH) Referring Physician: Jose Gary MD [address] [address] My final recommendations will be communicated back [...] she had problem with mens, so her TILER'S ASSISTANT MD did blood work and found that [...] Restless ? Temperature Intolerance: Cold Intolerance ? TILER'S ASSISTANT: Regular Menses - last 2 cycles, before [...] foods and meds interfering with thyroid meds, Pb Salinas MD June 04, 2018 CNOV Observed: 06/04/2018 Status: COMPLETED Source: [place] 2:45 PM [facility] REPOSITORY Office Visit (ENDMED) SANDRA SCHULTZ ([id number]) 1995 F Date Time Provider Department 06/04/18 2:45 PM PB SALINAS During your visit today, we recorded the following information about you: Pulse Blood pressure Weight Height 69/minute 117/76 63 kg 1.613 m Last Period 05/16/18 Pb [place] MD 07/15/2018 6:41 PM Signed Reason for Consultation: Hypothyroidism - possible secondary (low FT3, low Ft4, low normal TSH) Referring Physician: Jose Gary MD [address] [facility] [address] My final recommendations will be communicated back [...] she had problem with mens, so her TILER'S ASSISTANT MD did blood work and found that [...] Restless ? Temperature Intolerance: Cold Intolerance ? 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] Other Visit Diagnoses:Borderline abnormal TFTs [R94.6] Low thyroxine (T4) level [R79.89] Low serum triiodothyronine (T3) [R79.89] Irregular menses [N92.6] Lack of energy [R53.83] Vitamin D deficiency [E55.9] Order(s):TSH BLD [SQTSH] Order #: [id number] FUTURE T4 FREE/FREE THYROX [SQFT4] Order #: [id number] FUTURE T3 FREE BLD [SQFREET3] Order #: [id number] FUTURE FSH BLD [SQFSH] Order #: [id number] FUTURE LUTEINIZING HORMONE [SQLH] Order #: [id number] FUTURE T4/FTI/T4U [IGV4JFY] Order #: [id number] FUTURE VITAMIN D 25 HYDROXY [SQVITD] Order #: [id number] FUTURE Prescriptions as of 06/04/2018 Sig: SPIRONOLACTONE [...] %-2.5 % TOPICAL GEL WITH PUMP >> Vel Cruz Ma 06/04/2018 2:56 PM >> VEL CRUZ MA Jun 04, 2018 2:56 PM Problem List As Of Date 06/04/2018 Noted Resolved Examination of eyes and vision [Z01.00] INVALID FOR* Myopia [H52.10] INVALID FOR* Astigmatism, regular [H52.229] INVALID FOR* Disposition: Return in about 3 months (around 09/03/2018). Follow-up and Disposition History Recorded Letter Text Pb Salinas M.D. Staff Body Shop Manager [address] [place] [address], [address] [place] [address] Office: [phone] Sandra Schultz 05/25/2018 Sandra Schultz [address] [place] [address] [phone] Jose Gary MD, I would like to thank you for letting us participate in the care of your patient. Please see a copy of my assessment and plan following the visit. Respectfully, Pb Salinas MD Encounter Status:Closed by PB SALINAS MD on 07/15/18 FREE T3 Collected: 05/22/2018 Status: F Source: [place] 10:54 AM [facility] Order Comment: PLEASE ADD TO BLOOD IN LAB FROM 05/22/18. RACK TG4 1 H TYPE CODE TESTS RESULT OUT OF RANGE REFERENCE UNITS LAB L501.06069 2.18-3.98 pg/mL Low FREE T3 1.8 Performed By: #### L501.89301, L501.9520, L506.0400, L3300.1750, L3100.5420 #### [place] [facility] [address] [place], [address] THYROID STIM HORMONE Collected: 05/22/2018 Status: F Source: [place] (TSH) 10:54 AM [facility] Order Comment: PLEASE ADD TO BLOOD IN LAB FROM 05/22/18. RACK TG4 1 H TYPE CODE TESTS RESULT OUT OF RANGE REFERENCE UNITS LAB L501.9520 0.358-3.74 uIU/mL Normal TSH 0.68 Performed By: #### L501.36996, L501.9520, L506.0400, L3300.1750, L3100.5420 #### [facility] [address] [place], [address] T4 FREE DIRECT Collected: 05/22/2018 Status: F Source: [place] 10:54 AM [facility] Order Comment: PLEASE ADD TO BLOOD IN LAB FROM 05/22/18. RACK TG4 1 H TYPE CODE TESTS RESULT OUT OF REFERENCE UNITS RANGE LAB L506.0400 0.76-1.46 ng/dL Low T4 FREE 0.63 DIRECT Performed By: #### L501.30071, L501.9520, L506.0400, L3300.1750, L3100.5420 #### [facility] [address] [place], [place], [address] ESTRADIOL Collected: 05/22/2018 Status: F Source: [place] 10:54 AM [facility] Order Comment: PLEASE ADD TO BLOOD [...] TO DETERMINE ESTRADIOL CONCENTRATION. Performed By: #### L501.51861, L501.9520, L506.0400, L3300.1750, L3100.5420 #### [facility] [address] [place], [address] PROLACTIN Collected: 05/22/2018 Status: F Source: [place] 10:54 AM [facility] Order Comment: PLEASE ADD TO BLOOD [...] RANGES FEBRUARY 06, 2012 Performed By: #### L501.13025, L501.9520, L506.0400, L3300.1750, L3100.5420 #### [facility] [address] [place], [address] TESTOSTERONE, SERUM TOTAL Collected: 05/22/2018 Status: F Source: [place] 10:54 AM [facility] TYPE CODE TESTS RESULT OUT OF [...] CHANGED 09/06/2017 Performed By: #### L509.3000 #### [facility] [address] [place], [address] SEX HORMONE-BINDING Collected: 05/22/2018 Status: F Source: [place] GLOBULIN 10:54 AM [facility] Order Comment: Has Patient had Radioactive Injection for X-ray?: N TYPE CODE TESTS RESULT OUT OF RANGE REFERENCE UNITS LAB L3100.5060 24.6-122.0 nmol/L Normal SHBG 106.6 Result Comment: Performed at: [address] [id number] Law Firm Partner: Timur Ferraro PhD, Phone: [phone] Performed By: #### L3100.5060, L3300.1500, L3300.6820, L3300.6900 #### [facility] (refer to report for specific site) refer to report for address and phone number DHEA SULFATE Collected: 05/22/2018 Status: F Source: [place] 10:54 AM [facility] Order Comment: Has Patient had Radioactive Injection for X-ray?: N TYPE CODE TESTS RESULT OUT OF RANGE REFERENCE UNITS LAB L3300.1500 110.0-431.7 ug/dL Normal DHEA SULF 119.5 4020 Performed By: #### L3100.5060, L3300.1500, L3300.6820, L3300.6900 #### [facility] (refer to report for specific site) refer to report for address and phone number THYROGLOBULIN W/ANTI-TG Collected: 05/22/2018 Status: F Source: [place] AB 10:54 AM [facility] Order Comment: Has Patient had Radioactive Injection for X-ray?: N TYPE CODE TESTS RESULT OUT OF RANGE REFERENCE UNITS LAB L3300.7025 0.0-0.9 IU/mL Normal ANTI-TG < 1.0 AB Result Comment: Thyroglobulin Antibody measured by [facility] LAB L3400.1030 1.5-38.5 ng/mL Normal THYROGLOB [...] 05/22/2018 Status: F Source: [place] 10:54 AM [facility] Order Comment: Has Patient had Radioactive Injection for X-ray?: N TYPE CODE TESTS RESULT OUT OF RANGE REFERENCE UNITS LAB L3300.6900 0-34 IU/mL Normal TPO AB 11 6676 Performed By: #### L3100.5060, L3300.1500, L3300.6609, L3300.9945 #### [facility] (refer to report for specific site) refer to report for address and phone number EMERGENCY DEPARTMENT Observed: 02/19/2018 Status: F Source: [place] SUMMARY 12:18 AM [facility] Medical Records Department [address] [place] [address] Emergency Department Summary 02/18/18 1918 MR#: [id number] Acct: [id number] Name: SANDRA SCHULTZ Rep #: [id number] : 1995 22 From: James Oliveira MD [...] is currently being worked up by her RECEPTIONIST/TELEPHONE OPERATOR for irregular periods. She has never been [...] not improving. Treatment Plan: Follow-up with your RECEPTIONIST/TELEPHONE OPERATOR Dr. Anu Noble if not getting better in the next several days. Disposition: Discharge Impression: Acute dysuria of uncertain etiology This note was generated with [employer] software. It may contain incorrect words, spelling, [...] your Primary Care Provider. Call [facility] ([phone]) or report to the closest Emergency Room. Call 911 if necessary. 02/19/1817 <Electronically signed by James Oliveira MD> Date James Oliveira MD Cosigner Signature (If Indicated): Date CC: JOSE GARY DISCHARGE INSTRUCTION Observed: 02/19/2018 Status: Source: [place] 12:18 AM [facility] Medical Records Department [address] [place] [address] Discharge Instruction 02/18/181920 MR#: [id number] Acct: [id number] Name: SANDRA SCHULTZ Chelo Rep #: [id number] : 1995 22 From: James Oliveira MD PCP: JOSE GARY Status: [facility] ED Disposition - Plan for ED Patient: [...] your Primary Care Provider. Call [facility] ([phone]) or report to the closest Emergency Room. Call 911 if necessary. 02/19/1817 <Electronically signed by James Oliveira MD> Date James Oliveira MD Cosigner Signature (If Indicated): Date CC: JOSE GARY URINALYSIS, COMPLETE Collected: 02/18/2018 Status: F Source: [place] 5:20 PM [facility] Order Comment: Order Date: 02/18/18 How was Urine Obtained? CHICKEN CUTTER TO SPECIFY TYPE CODE TESTS RESULT OUT [...] URINE SEEN Performed By: #### L400.0001 #### [facility] [address] [place], [place], [address] ,URINE Collected: 02/18/2018 Status: F Source: [place] 5:20 PM [facility] TYPE CODE TESTS RESULT OUT OF REFERENCE UNITS RANGE LAB L400.8000 Negative Normal HCGUQUAL Negative Result Comment: Very dilute urine specimens, as indicated by a low specific gravity, may not contain automotive sales representative levels of hCG. If is still suspected, a first morning urine specimen should be collected 48 hours later and tested. Performed By: #### L400.7600 #### [facility] [address] [facility] [place], [id number] URINALYSIS, COMPLETE Collected: 02/17/2018 Status: F Source: [place] 2:28 PM [facility] Order Comment: How was Urine Obtained? [...] SEEN Performed By: #### L400.0001, M100.0650 #### [facility] [address] [place], [address] Observed: 02/17/2018 Status: F Source: [place] CULTURE, URINE 2:28 PM [facility] RESULT(S) PREVIOUSLY REPORTED ON MANUAL REQUISITION DURING DOWNTIME. Urine Culture Culture exhibits no growth. Performed By: #### L400.0001, M100.0650 #### [facility] [address] [place], [place], [address] URGENT CARE VISIT Observed: 02/17/2018 Status: F Source: [place] REPORT 1:12 PM [facility] [address] [place] [address] [address] [place] [address] OFFICE VISIT Date of Service: 02/17/18 MR#: [id number] Acct: [id number] Name: SANDRA SCHULTZ Rep #: [id number] : 1995 Provider: Tariq Koenig NP Age/Sex: 22/F Location: [facility] Status: Signed Intake Vital Signs02/17/18 Height 5 ft 4 in 02/17/18 Weight: 133 lb 02/17/18 Body Mass Index (BMI) 22.8 02/17/18 Blood Pressure 98/66 Intake Visit Reasons: UTI Chief Complaint: uti Oil Well Fishing Tool Operator Required: No Is patient in pain?: No [...] 1. Acute cystitis without hematuria N30.00 Plan Vahzd-mk-yvzk UA was negative, however given patient's symptoms we will treat empirically for UTI with Keflex twice daily 7 days. Did discuss how to take medication and potential side effects. Patient verbalized understanding. Did discuss with patient that if her symptoms persist after being treated with an antibiotic then she needs to follow-up with RECEPTIONIST/TELEPHONE OPERATOR to look at other causes of her symptoms. Patient verbalized understanding. [place] disclaimer Orders Orders: Medications New: Coding Level of Care Code Off vis,est,level 3 Diagnoses Acute cystitis without hematuria N30.00 Urinary tract infection type: acute cystitis Hematuria presence: without hematuria 02/17/18 1312 <Electronically signed by Tariq ESPANA> Date Tariq Koenig MULTI SLIDE MACHINE TENDER-C Oneliaigner Signature: Date (if applicable) CC: XR RIBS W/ PA CHEST Observed: 02/14/2018 Status: F Source: [place] 1:25 PM [facility] REPOSITORY Exam Date/Time: 02/14/2018 13:37 EDT Reason [...] Status: F Source: [place] TORREZ 3:35 PM [facility] TYPE CODE TESTS RESULT OUT OF [...] Performed By: #### L500.4050, L501.2300, L501.5200 #### [facility] [address] [place], [address] PHOSPHORUS Collected: 01/25/2018 Status: F Source: [place] 3:35 PM [facility] TYPE CODE TESTS RESULT OUT OF RANGE REFERENCE UNITS LAB L501.2300 2.5-4.9 mg/dL Normal PHOS 2.8 Performed By: #### L500.4050, L501.2300, L501.5200 #### [facility] [address] [place], [address] MAGNESIUM Collected: 01/25/2018 Status: F Source: [place] 3:35 PM [facility] TYPE CODE TESTS RESULT OUT OF RANGE REFERENCE UNITS LAB L501.5200 1.6-2.6 mg/dL Normal MG 2.1 Performed By: #### L500.4050, L501.2300, L501.5200 #### [facility] [address] [place], [address] CARBAMAZEPINE (TEGRETOL) Collected: 01/25/2018 Status: F Source: [place] 3:35 PM [facility] TYPE CODE TESTS RESULT OUT OF REFERENCE UNITS RANGE LAB L501.7900 4.0-12.0 ug/mL CARBAMAZEPINE Normal 9.2 Performed By: #### L501.7900 #### [facility] [address] [place] [address]. [place], [place], [address] FREE T3 Collected: 01/02/2018 Status: F Source: [place] 9:55 AM [facility] TYPE CODE TESTS RESULT OUT OF RANGE REFERENCE UNITS LAB L501.54121 2.18-3.98 pg/mL Low FREE T3 2.0 Performed By: #### L501.21700, L501.9520, L506.0400, L3100.5125, L3100.5170, L3300.1750 #### [facility] [address] [place] [address]. [place], [place], [id number] THYROID STIM HORMONE Collected: 01/02/2018 Status: F Source: [place] (TSH) 9:55 AM [facility] TYPE CODE TESTS RESULT OUT OF RANGE REFERENCE UNITS LAB L501.9520 0.358-3.74 uIU/mL Normal TSH 0.64 Performed By: #### L501.13894, L501.9520, L506.0400, L3100.5125, L3100.5170, L3300.1750 #### [facility] [address] [place] [address]. [place], [place], [id number] T4 FREE DIRECT Collected: 01/02/2018 Status: F Source: [place] 9:55 AM [facility] TYPE CODE TESTS RESULT OUT OF REFERENCE UNITS RANGE LAB L506.0400 0.76-1.46 ng/dL Low T4 FREE 0.74 DIRECT Performed By: #### L501.13569, L501.9520, L506.0400, L3100.5125, L3100.5170, L3300.1750 #### [facility] [address] [place] [address]. [place], [place], [id number] FOLLICLE STIMULATING Collected: 01/02/2018 Status: F Source: [place] HORMONE 9:55 AM [facility] TYPE CODE TESTS RESULT OUT OF [...] RANGES FEBRUARY 06, 2012 Performed By: #### L501.80373, L501.9520, L506.0400, L3100.5125, L3100.5170, L3300.1750 #### [facility] [address] [place], [place], [id number] LUTEINIZING HORMONE Collected: 01/02/2018 Status: F Source: [place] 9:55 AM [facility] TYPE CODE TESTS RESULT OUT OF [...] RANGES FEBRUARY 06, 2012 Performed By: #### L501.43088, L501.9520, L506.0400, L3100.5125, L3100.5170, L3300.1750 #### [facility] [address] [place], [place], [address] ESTRADIOL Collected: 01/02/2018 Status: F Source: [place] 9:55 AM [facility] TYPE CODE TESTS RESULT OUT OF [...] TO DETERMINE ESTRADIOL CONCENTRATION. Performed By: #### L501.38879, L501.9520, L506.0400, L3100.5125, L3100.5170, L3300.1750 #### [facility] [address] [place], [address] TESTOSTERONE, SERUM TOTAL Collected: 01/02/2018 Status: F Source: [place] 9:55 AM [facility] Order Comment: PLEASE ADD TO BLOOD IN LAB. RACK:WG1 6 N TYPE CODE TESTS RESULT OUT [...] 09/06/2017 Performed By: #### L509.3000, L501.9186 #### [facility] [address] [place], [address] T3 TOTAL - TRIIODOTHYRONINE Collected: 01/02/2018 Status: F Source: [place] 9:55 AM [facility] Order Comment: PLEASE ADD TO BLOOD IN LAB. RACK:WG1 6 N TYPE CODE TESTS RESULT OUT OF RANGE REFERENCE UNITS LAB L501.9186 0.6-1.81 ng/mL Normal T3 Total 0.69 Performed By: #### L509.3000, L501.9186 #### [facility] [address] [place], [address] SEX HORMONE-BINDING Collected: 01/02/2018 Status: F Source: [place] GLOBULIN 9:55 AM [facility] TYPE CODE TESTS RESULT OUT OF RANGE REFERENCE UNITS LAB L3100.5060 24.6-122.0 nmol/L High SHBG 268.1 Result Comment: Performed at: - [facility] [id number] Law Firm Partner: Timur Ferraro PhD, Phone: [phone] Performed By: #### L3100.5060 #### [facility] (refer to report for specific site) refer to report for address and phone number Observed: 11/27/2017 Status: F Source: [place] CULTURE, R/O STREP A 4:09 PM [facility] ROBI Culture No Group A Beta Streptococcus isolated. * This cultures intended use is to screen for Beta Streptococcus A only. All other pathogens and potential pathogens will not be screened for or reported. If a complete workup of all potential pathogens is indicated an order for a routine throat culture is required. Performed By: #### M100.010 #### [facility] [address] [address] [place], [place], [address] URGENT CARE VISIT Observed: 11/27/2017 Status: F Source: [place] REPORT 12:25 PM [facility] [facility] [address] [place], [place] [address] OFFICE VISIT Date of Service: 11/27/17 MR#: [id number] Acct: [id number] Name: SANDRA SCHULTZ Rep #: [id number] : 1995 Provider: Lorne HARTLEY Age/Sex: 22/F Location: [facility] Status: Signed Intake Vital Signs11/27/17 Height 5 [...] mg PO QAM 10/06/17 [History Confirmed 11/27/17] PFSH Medical History Seizures (Acute) Family History [...] lab for further evaluation. Clear fluids, rest, Advil/Tylenol/cwdm-ddy-fdyouux tussive as needed for symptomatic relief. Follow-up with PCP in 5 7 days should symptoms not improve, sooner should symptoms worsen or any other concerns develop. Patient states acknowledging understanding all the above. This note was generated with [employer] dictation software. It may contain incorrect words, spelling, and punctuation that were not noted in checking the note before signing. Orders Orders: Coding Level of Care Code Off vis,est,level 3 Diagnoses Pharyngitis J02.9 URI (upper respiratory infection) J06.9 11/27/17 1225 <Electronically signed by Lorne HARTELY> Date Lorne HARTLEY Cosigner Signature: Date (if applicable) CC: ALLERGIES ALLERGIES DATE TYPE / CODE NAME / CODE REACTION SEVERITY SOURCE 07/12/2018 Drug No Known Unknown [facility] Allergy/416 Allergies/S51413 Hospital 706675(SNOM 0388(RXNORM) Repository ED CT) Drug NO KNOWN [facility] Class/36620 ALLERGIES [place] 1003(SNOMED Repository CT) Drug/401847 No Known [facility] 003(SNOMED Allergies [facility] CT) System Repository ENCOUNTERS ENCOUNTERS ADMIT/DISCHARGE ACCOUNT NUMBER ADMITTING ENCOUNTER LOCATION SOURCE CLASS 10/03/2018 [id number] [facility] ding:WOBLAB Repository 10/01/2018/10/02/19 [id number] Ambulatory [address] [place] Repository 09/27/2018 [id number] [facility] ding:WOBLAB Repository 09/06/2018/09/06/20 [id number] Ambulatory [address] Repository 08/28/2018/08/28/20 [id number] Ambulatory [address] Repository 08/13/2018 [id number] Ambulatory [facility] ding:LABSPEC Repository 07/12/2018/07/12/20 [id number] Ambulatory BMSBuilding: [place] 18 [facility] Repository 07/08/2018/07/08/[id number] ding:CD:13[employer] [id number]: Repository CD:[id number] 06/21/2018/06/22/20 [id number] Ambulatory [address] Repository 06/04/2018/06/04/20 [id number] Ambulatory [address] Repository 05/22/2018 [id number] Ambulatory [facility] ding:WOBLAB Repository 03/23/2018/03/23/[id number] ding:CD:1320 [employer] [id number]: Repository CD:[id number] 03/20/2018/03/23/20 [id number] Ambulatory [address] Repository 02/18/2018/02/19/20 [id number] Emergency [address] ding:ED Repository 02/18/2018 [id number] Ambulatory [facility] ding:LABSPEC Repository 02/17/2018/02/18/20 [id number] Ambulatory BMSBuilding: [place] 18 [facility] Repository 02/14/2018/02/15/[id number] ding:[facility] Repository 02/14/2018/02/15/[id number] ding:CD:1320 [employer] [id number]: Repository CD:[id number] 02/14/[id number] Repository 01/25/2018 [id number] Ambulatory [facility] ding:LAB Repository 01/02/2018 [id number] Ambulatory [facility] ding:WOBLAB Repository 12/29/2017/01/02/20 [id number] Ambulatory [address] Repository 11/27/2017 [id number] Ambulatory [facility] ding:MTLAB Repository 11/27/2017/11/28/19 [id number] Ambulatory BMSBuilding: [address] Repository 10/17/2017/10/24/19 [id number] Ambulatory [address] Repository PAYERS PAYERS ENCOUNTER GUARANTOR PAYER SUBSCRIBER SOURCE 10/03/2018 SANDRA Gardner Primary Nabila Salamanca [id number] CR Insurance:ANTHEMPolic EsselburnDOB: [address], y Number: [id number] Hospital of [facility] [address]Jql: [id number] Repository Date:6138-96-10ZH [address]OX () 365386GNKZLDW, [place] [address]XS: 10/03/2018 Secondary NOT GIVENUNK Jadyn Insurance:SELF PAY [facility] Number: Effective Repository Date:2018-10-03 09/27/2018 SANDRA Gardner Primary Nabila Salamanca [id number] CR Insurance:ANTHEMPolic EsselburnDOB: [address], y Number: [id number] Hospital of Southern [facility] [place] [address]Aor: [id number] Repository Date:8672-97-62DV [address]OX () [address]JFTXXMV, [place] [address]MY: 09/27/2018 Secondary NOT GIVENUNK Jadyn Insurance:SELF PAY [facility] Number: Effective Repository Date:2018-09-27 08/13/2018 SANDRA Gardner Primary Nabila Salamanca [id number] CR Insurance:ANTHEMPolic EsselburnDOB: [address], y Number: [id number] Hospital of Southern [place] [address]Hfj: [id number] Repository Date:5061-53-29AE [address]OX () [place]QSIRIFD, [place] [address]UU: 08/13/2018 Secondary NOT GIVENUNK [place] Insurance:SELF PAY [facility] Number: Effective Repository Date:2018-08-13 07/12/2018 SANDRA Gardner Primary Nabila Jadyn [id number] CR Insurance:ANTHEMPolic EsselburnDOB: [address], y Number: [id number] Hospital of Southern [place] [address]Ziv: [id number] Repository Date:7289-36-72OG BOX () [address]6947PJFCHRH, [place] [address]EN: 07/12/2018 Secondary NOT GIVENUNK Jadyn Insurance:SELF PAY [facility] Number: Effective Repository Date:2018-07-12 07/08/2018 SANDRA Gardner Primary NABILA [facility] ESSELBURNDOB: Insurance:ANTHEMPolic ESSELBURNDOB: [facility] y Number: Effective [id number] Date:2018-07-08 - [facility] Repository [address] [place] [address] [id number] [place] [address] Name:[place] [address]Rrb: [id number] [place] [address]Ocw: [id number]: [phone] (HP) [phone] (HP) () 05/22/2018 SANDRA Gardner Primary Nabila [place] [id number] CR Insurance:ANTHEMPolic EsselburnDOB: [address], y Number: [id number] Hospital of Southern [facility] [place] [address]Bka: [id number] Repository Date:5761-10-46OP [address]OX () [address]69[address]LCIUNFF, [place] [address]NJ: 05/22/2018 Secondary NOT GIVENUNK [place] Insurance:SELF PAY [facility] Number: Effective Repository Date:2018-05-22 03/23/2018 SANDRA Gardner Primary NABILA [facility] ESSELBURNDOB: Insurance:ANTHEMPolic ESSELBURNDOB: [facility] y Number: Effective [id number] [place] [address] Date:2018-03-23 - [facility] Repository [address] [place] [address], [id number] [address] [place] [address] Name:[place] [address]Oqs: [id number], [place] [address]Whk: [id number]: [phone] (HP) [phone] (HP) (WP) 02/18/2018 SANDRA Gardner Primary Nabila [place] [id number] CR Insurance:ANTHEMPolic EsselburnDOB: Community [address] [place] [address], y Number: [id number] Hospital of Southern [facility] [place] [address]Rzc: [id number] Repository Date:0362-42-28MH BOX () 529727JRZRUND, [place] [address]WC: 02/18/2018 Secondary NOT GIVENUNK Jadyn Insurance:SELF PAY [facility] Number: Effective Repository Date:2018-02-18 02/18/2018 SANDRA Gardner Primary Nabila Jadyn [id number] CR Insurance:ANTHEMPolic EsselburnDOB: [address], y Number: [id number] Hospital of Southern [place] [address]Zsb: [id number] Repository Date:7109-23-35BC [address]OX () 819978GDOIDYE, [place] [address]DW: 02/18/2018 Secondary NOT GIVENUNK [place] Insurance:SELF PAY [facility] Number: Effective Repository Date:2018-02-18 02/17/2018 SANDRA Gardner Primary Nabila Jadyn [id number] CR Insurance:ANTHEMPolic EsselburnDOB: [address], y Number: [id number] Hospital of Southern [place] [address]Xqt: [id number] Repository Date:1421-12-50RF [address]OX () 461229EPXLHGH, [place] [address]QP: 02/17/2018 Secondary NOT GIVENUNK Jadyn Insurance:SELF PAY [facility] Number: Effective Repository Date:2018-02-17 02/14/2018 SANDRA Chelo Primary NABILA [facility] ESSELBURNDOB: Insurance:ANTHEMPolic ESSELBURNDOB: [facility] y Number: Effective [id number] [place] [address] Date:2018-02-14 - [facility] [place] [place] Repository [address] [place] [address], [id number] [address] [place] [address] Name:[facility] [address]Uog: [id number], [place] [address]Ojd: [id number]: [phone] (HP) [phone] (HP) (WP) 02/14/2018 [facility] NABILA [facility] HospitalBURNDOB: Insurance:ANTHEMPolic ESSELBURNDOB: [facility] y Number: Effective [id number] [place] [address] Date:2018-02-14 - [facility] [place] [place] Repository [address] [place] [address], [id number] [address] [place] [address] Name:Erlin [facility] [address]Wnj: [id number], [place] [address]Vto: [id number]: [phone] ([phone] (HP) (WP) 02/14/2018 [facility] ESSELBURNDOB: Insurance:AnthemPolic ESSELBURNDOB: [facility] y Number: [id number] [facility] [id number] [address] [place] [address], Date:Plan Name:Health [place] [id number]: (HP) 01/25/2018 [facility] Nabila [place] [id number] CR Insurance:ANTHEMPolic EsselburnDOB: [address], y Number: [id number] Hospital of Southern [place] [address]Aht: [id number] Repository Date:9095-16-42PY BOX () 127798ZOKLBLAMECCA [place] [address]JP: 01/25/2018 Secondary NOT GIVENUNK Jadyn Insurance:SELF PAY [facility] Number: Effective Repository Date:2018-01-25 01/02/2018 SANDRA Primary Nabila [place] [id number] CR Insurance:ANTHEMPolic EsselburnDOB: Community [address] [place] [address], y Number: [id number] Hospital of Southern [facility] [place] [address]Atx: [id number] Repository Date:5105-71-57CR BOX () 846897RHJWLVKMECCA [place]ARA [address]IQ: 01/02/2018 Secondary NOT GIVENUNK [place] Insurance:SELF PAY [facility] Number: Effective Repository Date:2018-01-02 11/27/2017 SANDRA Primary Nabila [place] [id number] CR Insurance:ANTHEMPolic EsselburnDOB: [address], y Number: [id number] Hospital of Southern [facility] [place] [address]Qwi: [id number] Repository Date:3191-96-75YD BOX () 664042KUDXHLIMECCA [place] [address]QT: 11/27/2017 Secondary NOT GIVENUNK [place] Insurance:SELF PAY [facility] Number: Effective Repository Date:2017-11-27 11/27/2017 SANDRA Primary Nabila [place] [id number] CR Insurance:ANTHEMPolic EsselburnDOB: [address], y Number: [id number] Hospital of Southern [place] [address]Dbz: [id number] Repository Date:6205-20-46JS BOX () 265934YDXPVSGMECCA [place]ARA [address]TH: 11/27/2017 Secondary NOT GIVENUNK [place] Insurance:SELF PAY [facility] Number: Effective Repository Date:2017-11-27
== END ==
PROVIDERS: Visit Provider Obstetrics & Gynecology
DX: N97.0 Female infertility associated with anovulation (principal)
CPT/HCPCS: 36415; 84144

== ENCOUNTER → 2018-12-03 14:09 | Outpatient (CLI) | payer BC, SELFPAY ==
[2018-12-03 17:49] LABS: Estradiol 66.2 pg/mL
[2018-12-03 17:57] LABS: Progesterone Level 3.46 ng/mL (See Comment)
[2018-12-03 18:22] LABS: hCG Titer Quant., Serum < 1 mIU/mL (<9 non-preg)
[2018-12-05 11:21] LABS: DHEA Sulfate 362.7 ug/dL (110.0-431.7)
== END ==
PROVIDERS: Visit Provider Obstetrics & Gynecology
DX: N92.6 Irregular menstruation, unspecified (principal); N91.1 Secondary amenorrhea
CPT/HCPCS: 36415; 82627; 82670; 84144; 84403; 84702; 82626

== ENCOUNTER → 2019-01-14 | Outpatient (CLI) | payer BC, SELFPAY ==
[2018-07-12 15:50] VITALS: BMI 25.1
[2019-01-14 17:10] LABS: Chlamydia Trachomatis by PCR Negative (Negative); Neisserai gonorrhoeae by PCR Negative (Negative); Probe Check PASS; Sample Adequacy Control PASS; Specimen Processing Control PASS
[2019-01-18 13:09] LABS: HPV Reflexed? NOT INDICATED
== END | disposition home or self-care (01) ==
LOC: LABSPEC 15:15
PROVIDERS: Visit Provider Obstetrics & Gynecology
DX: Z12.4 Encounter for screening for malignant neoplasm of cervix (principal); Z11.3 Encounter for screening for infections with a predominantly sexual mode of transmission
CPT/HCPCS: 87491; 87591; 88175; G0145

== ENCOUNTER → 2019-02-18 | Outpatient (CLI) | payer BC, SELFPAY ==
[2019-01-16 10:19] VITALS: BMI 25.1
[2019-02-18 15:28] LABS: ALB/GLOB Ratio 1.2 RATIO (0.9-2.4); AST(SGOT) 25 U/L (15-37); Alanine Aminotransfer ALT/SGPT 46 U/L (13-56); Albumin, Serum 3.7 g/dL (3.2-5.0); Alkaline Phosphatase 68 U/L (45-117); Anion Gap 7 (5-15); BUN 18 mg/dL (7-18); BUN/Creat Ratio 24.3 RATIO (10-20); Calcium,Total 8.8 mg/dL (8.5-10.1); Chloride 97 mmol/L (98-107); Creatinine, Serum 0.74 mg/dL (0.55-1.02); EST Glomerular Filtration Rate 103 mL/min (>60); Est Glom Filt Rate - Afr Amer 124 mL/min (>60); Globulin 3.2 g/dL (2.2-4.2); Glucose 79 mg/dL (74-106); Potassium 4.1 mmol/L (3.5-5.1); Protein, Total 6.9 g/dL (6.4-8.2); Sodium Level 133 mmol/L (136-145)
== END | disposition home or self-care (01) ==
LOC: LAB 14:26
PROVIDERS: Family Provider Family Medicine; PCP Family Medicine; Referring Provider Nurse Practitioner Family; Visit Provider Nurse Practitioner Family
DX: R56.9 Unspecified convulsions (principal)
CPT/HCPCS: 36415; 80053; 80156

== ENCOUNTER → 2019-02-20 | Outpatient (CLI) | payer BC, SELFPAY ==
[2019-01-16 10:19] VITALS: BMI 25.1
[2019-02-20 11:47] LABS: Absolute Lymphocyte Count 1.82 X10^3/ul (0.83-4.51); Absolute Neutrophil Count 2.3 X10^3/uL (2.0-7.7); Basophil# 0.02 X10^3/uL; Basophil% 0.4 % (0-1); Eosinophil# 0.03 X10^3/uL; Eosinophils% 0.7 % (0-5); Hematocrit 41.9 % (37-47); Hemoglobin 13.9 g/dl (12.0-15.0); Lymphocyte # 1.82 X10^3/ul (4.0); Lymphocyte % 39.7 % (19-41); Mean Corp Hgb Conc 33.2 g/gl (32-36); Mean Corpuscular Hgb 31.5 pg (27.0-32.0); Mean Platelet Vol. 9.3 fl (6.2-12.0); Monocyte# 0.41 X10^3/uL; Neutrophil # 2.28 X10^3/uL (2.7-7.7); Neutrophil % 49.8 % (47-70); Platelet Count 244 K/mm3 (150-450); RBC Distribution Width CV 12.8 % (11.6-14.6); RBC Distribution Width SD 43.2 fl (35.1-43.9); Red Blood Count 4.41 M/mm3 (4.2-5.4); White Blood Count 4.6 K/mm3 (4.4-11.0)
[2019-02-20 11:50] LABS: POSITIVE COUNT NO; POSITIVE DIFFERENTIAL NO; POSITIVE MORPHOLOGY NO
== END | disposition home or self-care (01) ==
LOC: LAB 10:33
PROVIDERS: Family Provider Family Medicine; PCP Family Medicine; Referring Provider Nurse Practitioner Family; Visit Provider Nurse Practitioner Family
DX: R56.9 Unspecified convulsions (principal)
CPT/HCPCS: 36415; 85025

== ENCOUNTER → 2019-02-25 | Outpatient (CLI) | payer BC, SELFPAY ==
[2019-01-16 10:19] VITALS: BMI 25.1
--- NOTE | 2019-02-28 11:05 | EEG ---
- Electroencephalogram date of service 02/25/2019 This is an 18 channel EEG performed with EKG reference leads, photic stimulation, and hyperventilation. Background activity is 8 to 10 Hz symmetrically in the posterior leads which attenuates with eye-opening. Hyperventilation is performed for 5 minutes with good effort with no lateralizing or epileptic form changes in the post hyperventilatory phase is unremarkable. The patient did experience wakefulness and sleep during the recording without lateralizing or epileptic form changes. EKG is normal sinus rhythm throughout the recording and photic simulation generates a normal symmetric driving response in the posterior leads. Impression: Normal awake and asleep electroencephalogram
== END | disposition home or self-care (01) ==
LOC: PSN 09:20
PROVIDERS: Family Provider Family Medicine; PCP Family Medicine; Referring Provider Nurse Practitioner Family; Visit Provider Nurse Practitioner Family
DX: H53.8 Other visual disturbances (principal); R56.9 Unspecified convulsions
CPT/HCPCS: 95819

== ENCOUNTER → 2019-03-25 | Outpatient (CLI) | payer BC, SELFPAY ==
[2019-01-16 10:19] VITALS: BMI 25.1
[2019-03-25 16:34] LABS: Estradiol 40.3 pg/mL
[2019-03-27 04:07] LABS: DHEA Sulfate 237.4 ug/dL (110.0-431.7)
[2019-03-27 12:57] LABS: Sex Hormone-binding Globulin 108.9 nmol/L (24.6-122.0)
== END | disposition home or self-care (01) ==
LOC: WOBLAB 15:02
PROVIDERS: PCP Family Medicine; Visit Provider Obstetrics & Gynecology
DX: N92.5 Other specified irregular menstruation (principal)
CPT/HCPCS: 36415; 82627; 82670; 84270; 84403; 82626

== ENCOUNTER → 2019-06-11 | Outpatient (CLI) | payer BC, SELFPAY ==
[2019-01-16 10:19] VITALS: BMI 25.1
--- NOTE | 2019-06-11 13:00 | MRI_ITS ---
STUDY: MRI BRAIN WITHOUT CONTRAST REASON FOR EXAM: Female, 23 years old. Vision loss, dizziness TECHNIQUE: Standardized multiplanar fat and water weighted pulse sequences were obtained. COMPARISON: None. FINDINGS: Normal size of the ventricles and extra-axial spaces for the patient's age. Normal white matter tracts of the supratentorial brain. There is no evidence for recent intracranial ischemia or other cause of cytotoxic edema on diffusion weighted imaging (DWI). Normal T2* images of the brain without demonstrated susceptibility artifact. There is no demonstrated hemosiderin stain. Thin section coronal images through the temporal lobes demonstrate no evidence of hippocampal atrophy or hyperintensity to suggest mesial temporal sclerosis. Normal bilateral basal ganglia. Normal thalami. There is no extra-axial fluid accumulation. Normal flow voids within the major intracranial circulation suggesting patency by spin echo criteria. Normal sella turcica, pituitary gland, infundibular stalk, optic chiasm and hypothalamus. Normal tectal plate and pineal gland. Normal midbrain, alvino and medulla. Normal cerebellum. Normal basal cisterns. Normal bilateral temporal bones. Normal bilateral internal auditory canals. No demonstrated orbital abnormality, within the constraints of a routine brain study. Normal visualized paranasal sinuses. Normal calvarium and skull base. Normal visualized soft tissue structures. Normal visualized upper cervical spine. MRI/Brain without Contrast IMPRESSION: Normal unenhanced MRI of the brain. Electronically Signed: Migel Webber MD at 13:27 EDT Tel , Service support ,
== END | disposition home or self-care (01) ==
LOC: MRI 12:31
PROVIDERS: Family Provider Family Medicine; PCP Family Medicine; Referring Provider Nurse Practitioner Family; Visit Provider Nurse Practitioner Family
DX: H53.9 Unspecified visual disturbance (principal)
CPT/HCPCS: 70551

== ENCOUNTER → 2020-04-07 | Outpatient (CLI) | payer BC, SELFPAY ==
[2019-01-16 10:19] VITALS: BMI 25.1
[2020-04-07 17:41] LABS: Chlamydia Trachomatis by PCR Negative (Negative); Neisserai gonorrhoeae by PCR Negative (Negative); Probe Check PASS; Sample Adequacy Control PASS; Specimen Processing Control PASS
== END | disposition home or self-care (01) ==
LOC: LABSPEC 14:03
PROVIDERS: PCP Family Medicine; Visit Provider Obstetrics & Gynecology
DX: Z11.4 Encounter for screening for human immunodeficiency virus [HIV] (principal)
CPT/HCPCS: 87491; 87591

== ENCOUNTER → 2020-12-04 14:37 | Outpatient (CLI) | payer BC, SELFPAY ==
[2019-01-16 10:19] VITALS: BMI 25.1
[2020-12-04 16:54] LABS: Hematocrit 43.5 % (37-47); Hemoglobin 14.2 g/dL (12.0-15.0); Mean Corp Hgb Conc 32.6 g/dL (32-36); Mean Platelet Vol. 9.3 fl (6.2-12.0); Platelet Count 324 K/mm3 (150-450); RBC Distribution Width CV 12.2 % (11.6-14.6); Red Blood Count 4.44 M/mm3 (4.2-5.4); White Blood Count 6.9 K/mm3 (4.4-11.0)
[2020-12-04 17:24] LABS: Progesterone Level 0.32 ng/mL (See Comment)
[2020-12-04 18:37] LABS: ALB/GLOB Ratio 1.1 RATIO (0.9-2.4); AST(SGOT) 31 U/L (15-37); Alanine Aminotransfer ALT/SGPT 52 U/L (13-56); Alkaline Phosphatase 72 U/L (45-117); Anion Gap 7 (5-15); BUN 18 mg/dL (7-18); BUN/Creat Ratio 26.6 RATIO (10-20); Chloride 95 mmol/L (98-107); Creatinine, Serum 0.68 mg/dL (0.55-1.02); EST Glomerular Filtration Rate 112 mL/min (>60); Est Glom Filt Rate - Afr Amer 136 mL/min (>60); Estradiol 113.2 pg/mL; Follicle Stimulating Hormone 3.1 mIU/mL; Globulin 3.5 g/dL (2.2-4.2); Glucose 81 mg/dL (74-106); Luteinizing Hormone 3.1 mIU/mL; Potassium 3.6 mmol/L (3.5-5.1); Prolactin 8.9 ng/mL; Protein, Total 7.5 g/dL (6.4-8.2); Sodium Level 134 mmol/L (136-145); T4 Free Direct 0.65 ng/dL (0.76-1.46); Thyroid Stim Hormone (TSH) 0.95 uIU/mL (0.358-3.74)
[2020-12-10 14:09] LABS: Testosterone Free 5.2 pg/mL (0.0-4.2)
== END ==
PROVIDERS: PCP Family Medicine; Visit Provider Obstetrics & Gynecology
DX: N91.2 Amenorrhea, unspecified (principal)
CPT/HCPCS: 36415; 80053; 82627; 82670; 83001; 83002; 84144; 84146; 84402; 84439; 84443; 85027; 82626

== ENCOUNTER → 2021-05-25 08:49 | Outpatient (CLI) | payer BC, SELFPAY ==
[2021-05-25 10:46] LABS: Progesterone Level 0.36 ng/mL (See Comment)
[2021-05-25 11:00] LABS: Follicle Stimulating Hormone 4.7 mIU/mL; Free T3 2.4 pg/mL (2.18-3.98); Luteinizing Hormone 6.7 mIU/mL; Prolactin 9.2 ng/mL; T4 Free Direct 0.65 ng/dL (0.76-1.46); Thyroid Stim Hormone (TSH) 1.38 uIU/mL (0.358-3.74)
[2021-05-27 19:48] LABS: Testosterone Free 4.4 pg/mL (0.0-4.2)
== END ==
PROVIDERS: PCP Family Medicine; Visit Provider Obstetrics & Gynecology
DX: N91.1 Secondary amenorrhea (principal); N80.9 Endometriosis, unspecified
CPT/HCPCS: 36415; 82627; 82670; 83001; 83002; 84144; 84146; 84402; 84439; 84443; 84481; 82626

== ENCOUNTER 2021-10-04 14:00 | Outpatient (CLI) | payer BC, SELFPAY ==
[2021-10-07 00:07] LABS: Chlamydia By Nucleic Acid AMP Negative (Negative)
[2021-10-07 08:36] LABS: Gonococcus By Nucleic Acid AMP Negative (Negative)
[2021-10-07 19:17] LABS: HPV Reflexed? NOT INDICATED
== END 2021-10-04 23:59 | disposition short-term general hospital (02) ==
LOC: LABSPEC 14:16
PROVIDERS: PCP Family Medicine; Visit Provider Obstetrics & Gynecology
DX: Z12.4 Encounter for screening for malignant neoplasm of cervix (principal); Z11.3 Encounter for screening for infections with a predominantly sexual mode of transmission
CPT/HCPCS: 87491; 87591; 88175; G0145

== ENCOUNTER 2022-11-10 18:51 | Emergency (ER) | payer OTHER, SELFPAY ==
[2022-11-10 18:52] VITALS: BP 131/88; PULSE 80; RESP 16; TEMP 36.9; O2SAT 99; BMI 26.2
--- NOTE | 2022-11-10 19:06 | ED.VIS.FEGU ---
HPI HPI - Female History of Present Illness Chief Complaint: Complaint Narrative Narrative: 27-year-old female past medical history of endometriosis, used to see Dr. Anu Noble, but has not seen her in over a year. She states that she usually gets pelvic pain around the time of her menses every month. She just completed her menses. She presents today because of pain in her pelvis. She does not usually take medication for her pain. She denies any dysuria or hematuria. No fevers or chills. She presents because the pain in her pelvis and suprapubic area. No exacerbating or alleviating factors. [facility] Medical History Impacted cerumen of both ears Seizures Home Medications carbamazepine 400 mg tablet,extended release,12 hr 400 mg PO BID 12/10/16 [History Last Taken Unknown] biotin 2,500 mcg capsule 2,500 mcg PO DAILY 10/06/17 [History Last Taken Unknown] multivitamin 1 cap PO QAM 10/06/17 [History Last Taken Unknown] spironolactone 25 mg tablet 100 mg PO QAM 10/06/17 [History Last Taken Unknown] azithromycin 250 mg tablet See Rx Instructions PO .COMPLEX #6 tabs 06/17/22 [Rx Last Taken Unknown] benzonatate 100 mg capsule 200 mg PO TID PRN cough #30 caps 06/17/22 [Rx Last Taken Unknown] Allergy/AdvReac Type Severity Reaction Status Date / Time No Known Allergies Allergy Verified 11/10/22 18:54 Family History Other Breast cancer Cancer Diabetes Heart disease Social History Smoking Status: Never smoker alcohol intake: never substance use type: does not use additional social history: DOES USE ASPIRIN DOES USE IBUPROFEN ROS ROS ED ROS Narrative Constitutional: No fever, no chills. HEENT: No sore throat. No neck pain. No loss of vision. No rhinorrhea. Cardiovascular: No chest pain. No palpitations. No pedal edema. Respiratory: No cough, no shortness of breath. Abdominal: Positive suprapubic/pelvic abdominal pain. No nausea. No vomiting. Genitourinary: No dysuria. No hematuria. Musculoskeletal: No myalgias. No arthralgias. Neurologic: No headaches. No dizziness. No lightheadedness. Skin: No rash. No change in color. Psychiatric: No depression. No anxiety. EXAM Physical Exam Narrative Exam Narrative: Afebrile. Vital signs noted. HEENT: Normocephalic. Atraumatic. PERRL, EOMI. Neck soft and supple. No point tenderness or step off. Cardiovascular: Regular rate and rhythm. No murmurs, rubs, or gallops appreciated. Respiratory: No tachypnea. Lungs clear to auscultation bilaterally. Gastrointestinal: Abdomen soft, mild tenderness suprapubic abdomen with normoactive bowel sounds. No rebound or guarding. Neurological: Awake. Alert. Nonfocal, nonlateralizing. Skin: No rash. Normal color. No pallor. Musculoskeletal: No pedal edema. Full range of motion extremities. Const Vital Signs: 11/10/22 18:52 Temperature 98.4 F Temperature Source Temporal Pulse Rate 80 Respiratory Rate 16 Blood Pressure 131/88 H Blood Pressure Mean 102 Pulse Ox 99 Oxygen Delivery Method Room Air MDM MDM MDM Narrative Medical decision making narrative: Given her history, in the differential diagnosis is endometriosis exacerbation versus ectopic versus cystitis. She was unable to produce a urine sample initially because she states that she went prior to coming to the emergency department. From her history it does sound like she is having more problems with endometriosis. She was given ibuprofen 800 mg initially here for analgesia. She will be allowed to drink fluids and we will send off a UA for analysis along with a urine . I reviewed her urinalysis results and there is no evidence of infection, 0-5 WBCs. I do not feel that antibiotics are indicated. Urine test was reviewed and is negative. At this point in time, after ibuprofen, she states she is feeling slightly improved. I offered to write her prescription for ibuprofen but she declined. I offered to write her for something a little bit stronger for pain for a short course, but she also declined. She will follow-up with her CLIENT CARE REPRESENTATIVE as soon as possible as I do feel that this is most likely endometriosis. I feel she be discharged safely home with follow-up. Return instructions to the emergency department were reviewed. Disposition is discharged home in stable condition. Patient and mother comfortable with the plan. Lab Data Attestation: I reviewed the patient's lab results. Labs: Laboratory Results - last 24 hr 11/10/22 11/10/22 19:00 19:00 Urine Color Yellow Urine Clarity Clear Urine pH 7.0 Ur Specific Wolsey 1.015 Urine Protein 15 H Urine Glucose (UA) Normal Urine Ketones Negative Urine Occult Blood 25 H Urine Nitrite Negative Urine Bilirubin Negative Urine Urobilinogen Normal Ur Leukocyte Esterase 500 H Urine RBC 0 SEEN Urine WBC 0-5 SEEN Ur Squamous Epith Cells 0-5 SEEN Urine Bacteria 0 SEEN Urine Mucus 0 SEEN Urine Test Negative Discharge Plan Triage Chief Complaint: Complaint ED Provider: Jah Thompson Dx/Rx/DC Orders Clinical Impression: Pelvic pain, Endometriosis Instructions: ED Abdominal Pain Unkn Cause Fem, ED Endometriosis Prescriptions: No Action spironolactone 25 mg tablet 100 mg PO QAM multivitamin capsule capsule 1 cap PO QAM biotin 2,500 mcg capsule 2,500 mcg PO DAILY azithromycin 250 mg tablet See Rx Instructions PO .COMPLEX Qty: 6 0RF Rx Instructions: take 500 mg today (day 1), then 250 mg for 4 days (days 2-5) PO benzonatate 100 mg capsule 200 mg PO TID PRN (Reason: cough) Qty: 30 0RF carbamazepine 400 MG tablet extended release 12 hr 400 mg PO BID Label Comments: Primary Care Provider: Jorge Gary Referrals: Jorge Gary MD [Primary Care Provider] - Naz Greene MD [Med Staff - Active Staff] - As soon as possible Activity Restrictions/Additional Instructions: Take ibuprofen 800 mg by mouth 3 times a day with food for pain. Follow-up with CLIENT CARE REPRESENTATIVE as soon as possible. Disposition Disposition: Home, Self Care
[2022-11-10] MEDS: Ibuprofen 600 MG Tablet 800 MG PO (19:16)
[2022-11-10 19:20] LABS: Bacteria 0 SEEN /hpf (None Seen); Mucous, Urine 0 SEEN /hpf (<or=2+); Red Blood Cells-Urine 0 SEEN /hpf (0-5)
[2022-11-10 19:44] LABS: Color, Urine Yellow (Yellow); Glucose, Dipstick Normal (Normal); Ketone-Dipstick Negative (Negative); Leukocyte Esterase-Dipstick 500 /ul (Negative); Nitrite-Dipstick Negative (Negative); Occult Blood-Urine 25 /ul (Negative); Protein-Dipstick 15 mg/dl (Negative); Specific Gravity, Urine 1.015 (1.002-1.030); Urine Bilirubin Dipstick Negative (Negative); Urine Clarity Clear (Clear); Urine Urobilinogen Normal (Normal)
[2022-11-10 19:45] LABS: Internal QC Validated? YES +Cl - CLEAR BKGD; Pregnancy, Urine Negative Negative
[2022-11-10 19:51] LABS: Squamous Epithelial Cells - UA 0-5 SEEN /hpf (5-10); White Blood Cells 0-5 SEEN /hpf (0-5)
[2022-11-10 20:10] VITALS: BP 128/73; PULSE 69; RESP 18; O2SAT 98
== END 2022-11-10 20:13 | disposition home or self-care (01) ==
PROVIDERS: Emergency Provider Emergency Medicine; PCP Family Medicine; Visit Provider Emergency Medicine
DX: N80.9 Endometriosis, unspecified (principal); Z87.42 Personal history of other diseases of the female genital tract
CPT/HCPCS: 81001; 81025; 99283

== ENCOUNTER → 2023-02-06 | Outpatient (CLI) | payer OTHER, SELFPAY ==
[2023-02-06 16:25] LABS: HIV - WCH Non-Reactive (Nonreactive); Syphilis Antibodies Non-reactive
[2023-02-08 06:09] LABS: HEPATITIS B SURFACE AG Negative (Negative); Hep B Surface Antibodies Non Reactive (.); Hepatitis B Core Ab Total Negative (Negative)
== END | disposition home or self-care (01) ==
LOC: WOBLAB 14:25
PROVIDERS: PCP Family Medicine; Visit Provider Nurse Practitioner Women's Health
DX: Z11.3 Encounter for screening for infections with a predominantly sexual mode of transmission (principal)
CPT/HCPCS: 36415; 86703; 86704; 86705; 86706; 86707; 86780; 86803; 87340; 87350

== ENCOUNTER → 2024-10-16 | Outpatient (CLI) | payer OTHER, SELFPAY ==
[2024-10-16 12:45] LABS: Absolute Lymphocyte Count 1.85 X10^3/uL (0.83-4.51); Absolute Neutrophil Count 3.5 X10^3/uL (2.0-7.7); Basophil# 0.08 X10^3/uL; Basophil% 1.3 % (0-1); Eosinophil# 0.28 X10^3/uL; Eosinophils% 4.5 % (0-5); Hematocrit 42.5 % (37-47); Hemoglobin 14.1 g/dL (12.0-15.0); Lymphocyte # 1.85 X10^3/ul (0.83-4.51); Lymphocyte % 29.7 % (19-41); Mean Corp Hgb Conc 33.2 g/dL (32-36); Mean Corpuscular Hgb 32.1 pg (27.0-32.0); Mean Corpuscular Volume 96.8 fL (81-99); Mean Platelet Vol. 8.8 fl (6.2-12.0); Monocyte# 0.53 X10^3/uL; Monocyte% 8.5 % (0-10); NRBC Flagged by Analyzer 0 % (0-5); Neutrophil # 3.46 X10^3/uL (2.7-7.7); Neutrophil % 55.7 % (47-70); Platelet Count 318 K/mm3 (150-450); RBC Distribution Width CV 12.5 % (11.6-14.6); RBC Distribution Width SD 44.7 fl (35.1-43.9); Red Blood Count 4.39 M/mm3 (4.2-5.4); White Blood Count 6.2 K/mm3 (4.4-11.0)
[2024-10-16 13:38] LABS: ALB/GLOB Ratio 1.2 RATIO (0.9-2.4); AST(SGOT) 16 U/L (15-37); Alanine Aminotransfer ALT/SGPT 25 U/L (13-56); Albumin, Serum 3.8 g/dL (3.2-5.0); Alkaline Phosphatase 48 U/L (45-117); Anion Gap 8 (5-15); BUN 14 mg/dL (7-18); BUN/Creat Ratio 18.8 RATIO (10-20); Calcium,Total 9.2 mg/dL (8.5-10.1); Chloride 104 mmol/L (98-107); Cholesterol 223 mg/dL (200); Creatinine, Serum 0.74 mg/dL (0.55-1.02); EST Glomerular Filtration Rate 98 mL/min (>60); Est Glom Filt Rate - Afr Amer 119 mL/min (>60); Globulin 3.3 g/dL (2.2-4.2); Glucose 78 mg/dL (74-106); High Density Lipoprotein 109 mg/dL; Potassium 4.3 mmol/L (3.5-5.1); Protein, Total 7.1 g/dL (6.4-8.2); Sodium Level 138 mmol/L (136-145); Thyroid Stim Hormone (TSH) 0.651 uIU/mL (0.358-3.740); Triglycerides 79 mg/dL; Very Low Density Lipoprotein 16 mg/dL (5-40)
== END | disposition home or self-care (01) ==
LOC: VSLAB 09:20
DX: Z13.1 Encounter for screening for diabetes mellitus (principal); Z13.220 Encounter for screening for lipoid disorders; Z13.6 Encounter for screening for cardiovascular disorders
CPT/HCPCS: 36415; 80053; 80061; 83036; 84443; 85025

== ENCOUNTER 2025-03-27 09:28 | Outpatient (RCR) | payer SELFPAY ==
--- NOTE | 2025-03-27 09:00 | BH.SGPN.GN ---
Behaviors/Verbalizations/Mental Status: [] Eye contact is good. Motor activity is appropriate. Appearance is casual. Speech is Appropriate. Mood is depressed and anxious. Affect is congruent. Thoughts are linear and logical. No evidence of psychosis. Reviewed daily check in sheet and no reports of suicidal ideations or intent Client Response/Progress/Benefit: [] Pt participated when prompted. Attentive. Daily symptom tracker notes 2/5 for depression, anxiety, and irritability. Today was pt?s first day in IOP. Briefly shared mental health struggles and goals for the program. Pt notes perception that she is failing in life with career, friendships, and relationships. Comparing herself to others often which has resulted in significant negative thoughts as well as survival ambivalence. No progress noted as this was first day. Group provided support and feedback on what to expect from IOP which was helpful. Will continue in IOP to maintain safety, prevent decompensation, and increase healthy coping Narrative Note: []
--- NOTE | 2025-03-27 09:52 | BH.COMM_ITS ---
Communication Note Communication with Client Communication Note: Met with pt to complete initial paperwork and administer the CSSR-S screening and risk assessment. Pt is a mild risk as pt reports having thoughts of wishing she could escape/ fall asleep and not wake up within the past month, but denies any suicidal ideations within the past month. No history of suicidal ideations now or in the past. No history of attempts. Pt denies any self-harm history. No weapons at home per her report. Pt is future oriented. Discussed case with Dr. Gillespie and pt will be admitted to [facility] tx with a diagnosis of MDD, recurrent, moderate, without psychosis F 33.1
--- NOTE | 2025-03-27 10:30 | BH.PSY.EVA_ITS ---
Intake Vital Signs 06/04/24 13:57 03/27/25 10:30 03/27/25 11:28 Height 1.6 m 1.6 m 1.6 m Weight: 61.235 kg BP 114/77 Pulse 66 Intake Visit Reasons: Low mood, anxiety Allergies No Known Allergies Allergy (Verified 03/27/25 11:17) Medications ?Medication ?Instructions ?Recorded ?Confirmed ?Type carbamazepine 400 mg 400 mg PO BID 12/10/1603/27 History tablet,extended release,12 hr sertraline 25 mg tablet (Zoloft) See Rx Instructions . Route 03/27/25 Rx .COMPLEX #60 tabs spironolactone 100 mg tablet 100 mg PO DAILY 03/27/25 03/27/25 History (Aldactone) PFS () Medical History Contact with or exposure to other viral diseases Impacted cerumen of both ears Seizures Family History Other Breast cancer CVA (cerebral vascular accident) Cancer Cervical cancer Diabetes Heart disease Social History Smoking Status: Never smoker alcohol intake: current alcohol intake frequency: a few times a week Alcohol type: other details: Abhi substance use type: does not use additional social history: DOES USE ASPIRIN DOES USE IBUPROFEN HPI () History of Present Illness History provided by: patient Chief complaint: Mood swings HPI: Sandra is a 29y/o female who presented to [facility] IOP program for further evaluation and treatment of depression and anxiety/mood fluctuations. Patient presented to IOP after she had a breakdown several weekends ago when she felt extreme stress and like everything was crumbling. She had fallouts with close friends and a recent break-up with a boyfriend and has been helping take care of her mom who has been using a walker and is supposed to have hip surgery on . 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 She has had poor appetite, does not enjoy going to the gym like she used to, sometimes difficulty falling asleep due to anxiety and racing thoughts but sleeps well after she falls asleep, when she is having episodes of stress she will feel drained and she also reports excessive guilt. She has had some thoughts that she would be okay not waking up in the morning, not as much this past week because she reports she feels a little bit better though still having the symptoms as above. Denies HI, no AH or VH. Notes that she is a very anxious person and is a perfectionist and also people pleaser, will sometimes feel racing heart when she is very anxious. Endorses some checking behaviors (going to check that she turned off her curling iron) but no other symptoms be consistent with OCD. Denies any nightmares or flashbacks reports she has been losing weight but notes she has not been trying to, she has been forcing herself to eat but said even her seasonal sales associate noticed she lost weight so she thinks this is probably a problem. Overall she reports she has had difficulty with the symptoms like low mood and high anxiety when there have been acute stressors in her life and they wax and wane over time even without medication but she is concerned at the severity of her mood swings and would like something to help even out her symptoms. Current psychiatric medications: Carbamazepine for epilepsy which she has been taking for many years, she had a seizure 6 years ago and another seizure 8 years ago but has not had any since that time. Denies any current or past psychiatric medications Past psychiatric treatment Hx: -Psychiatrist: None -Therapist: She reports she struggled with acne 6 years ago and it was bad enough that she had avoidant behaviors and was very depressed and anxious so she briefly saw a therapist -Psychiatric hospitalizations: No -Suicide attempts: No -NSSI: No -Medication trials: No Medical Hx: -Medical problems: History of epilepsy, on Tegretol -Medications: See home med list. Is on spironolactone and this is for acne Substance use Hx: -Alcohol: Only on weekends -Drugs: No -Tobacco use: No Family Hx: -Mental illness: Dad struggling currently with the stress of her mom needing surgery but does not sound as though he or anyone in the family have any long standing or pervasive problems with depression -Suicide attempts or completions: No -Substance Use: No -General medical conditions: HTN, DMII, aunt w/ breast cancer, cousin w/ cervical cancer Psychosocial: -[place] -Parents: Parents are in their 60s and still on the farm she grew up on, mother has been debilitated for 4 to 5 months awaiting hip surgery and is using a walker which is caused a lot of stress on all of them -Siblings: She has an older brother and had a period of time where they had difficulty getting along when she first went back to the farm but they are doing better now -Current living situation and location: She presently lives by the farm in close proximity to her parents and brother but not the same house -Marital status: Single -Children: None -Highest level of education: Got an associates in business management but decided that she did not want to do that so 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 then -Legal problems: No Medical ROS: General: Denies fever HENT: Denies headache EYES: Denies acute changes in vision Resp: denies shortness of breath Cardiac: Denies chest pain GI: denies changes in bowel, denies nausea/vomiting : Denies changes in urination MSK: Denies weakness Neuro: Denies any numbness/tingling Heme: Denies any bleeding or bruising Skin: Denies rashes Psychiatric: As above Exam () Mental Status Exam- Psych () Appearance casually dressed, adequately groomed, no apparent distress and well kempt Attitude cooperative and calm Activity/Motor Behavior MSE activity/motor behavior finding no adventitious movements Speech regular rate and regular volume Mood euythmic Affect full range Thought Process linear and logical Thought Content no delusions and no hallucinations Suicidal Ideation none Homicidal Ideation none Attention intact Concentration intact Sensorium/Orientation awake and alert Memory/Cognition intact Insight fair Judgement fair Assessment & Plan () Assessment & Plan (1) MDD (major depressive disorder), recurrent episode, moderate: Problem Details: Low motivation, low energy, anhedonia, poor appetite, poor sleep, low mood Plan: Patient reports long history what sound to be moderate depressive episodes, often times they seem associated with psychosocial stressors but does sound like this is even present outside of this context at times as it is some anxiety, discussed medication addition versus watchful waiting, patient would prefer to start something to help with her mood swings and symptoms, discussed starting a low-dose of Zoloft and uptitrating as tolerated. Discussed that this medication would not take away her feelings or her moods but the goal would be to help with the extremes to help her cope better with things that arise. Will likely need to check labs after patient starts the Zoloft to verify sodium stable given she is also on Tegretol Plan The patient will begin IOP in Behavioral Health at [facility]. The program's structure, support, education, and therapy aim to prevent deterioration of symptoms and avoid the need for PHP or inpatient hospitalization. I have a reasonable expectation that the patient will make practical improvements in their presenting symptoms and will be discharged to a lower level of care. Medications: New sertraline Take 25mg daily for 1 week then increase to 50mg daily 60 tabs 0RF Visit Details Comments: Spent a total of [ ] minutes on the date of the service which included [ ]. Charges/Coding Behavior Health Behavior Health Psychiatric Evaluation: 75602 Psych Diag Exam w/ Medical Services
--- NOTE | 2025-03-27 10:30 | BH.DR.ITP ---
Initial Treatment Plan Patient Information Visit Information: ADMISSION DATE: EXPECTED LOS: 6-8 weeks Diagnoses:: MDD Problems/Symptoms Problem #1:: MDD Symptom:: Low motivation, low energy, anhedonia, poor appetite, poor sleep, low mood
--- NOTE | 2025-03-27 11:10 | BH.SGPN.GN ---
Behaviors/Verbalizations/Mental Status: []Pt alert and oriented, casually dressed and groomed. Eye contact good. Motor activity appropriate. Speech within normal limits. Affect congruent, mood euthymic. Thoughts linear, logical, no signs of hallucinations or delusions. Client Response/Progress/Benefit: [] Pt was an active participant, engaged in activities and discussion. Pt able to identify ways they negatively contribute to crucial conversations and pt was engaged during psychoeducation of the different ways to build interpersonal effectiveness skills. Pt and peers practiced mirroring and active listening in partners. Group reviewed DEAR MAN and used the handout to help map out how they would like a crucial conversation in their life to go. Pt identified talking to her best friends who are currently distancing themselves from pt and how that makes pt feel. Pt appeared to benefit from learning and practicing interpersonal effectiveness skills. Pt will continue IOP tx to prevent decompensation, improve daily functioning, and reduce negative thinking patterns. Narrative Note: []
--- NOTE | 2025-03-27 11:10 | BH.NA ---
Physical Data Vital Signs Pulse Rate: 66 Blood Pressure: 114/77 Height/Weight Height: 1.6 m Weight:: 61.235 kg Weight in Pounds: 135.0 lbs Current Medication Compliance Medication Compliance Do you take your medication as prescribed?: Yes Nutritional History Appetite Nutritional Instructions: Describe your appetite:: Fair Additional nutritional information:: Client does report she has been told she looks like she has lost a little weight and she does notice a decrease in her appetite. 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 Functional Assessment Sleep Pattern Describe any problems with sleeping: Client states she sleeps about 7 hours per night. Sensory/Communication Assess Communication Problems Do you have difficulty understanding what people are saying?: No Medical Problems/History Neurological Conditions Neurological: Seizures (history of epilepsy, no seizures in 6 years, regularly follows up with neurology) Musculoskeletal Conditions Musculoskeletal: Other (See comments) (on PO medication for acne) Pain Assessment Do you have acute or chronic pain?: No Family History Family History Other Breast cancer CVA (cerebral vascular accident) Cancer Cervical cancer Diabetes Heart disease Surgical History Surgical History Have you had any surgeries? If so, list type and date:: Yes (tonsillectomy as child) Substance Abuse Substance Abuse Please describe substance abuse in the last 30 days:: Client reports some social alcohol use on the weekends. Client denies tobacco or substance use. Client states she drinks 2 iced coffees per day with caffeine. Mental Status Summary Mental Status Significant Findings/Observations on Appearance and Mood:: Client is alert and oriented x 4. Client is casually groomed with good hygiene. Client is cooperative with assessment. Client makes good eye contact. Client's voice has normal rate and volume. Client has appropriate affect. Client makes logical associations and has normal processing. Client denies delusions/hallucinations. Suicide Assessment Suicidal Ideation Are you currently or have you been suicidal in the past?: No Suicidal Intentional Rating Scale (SIRS): No suicidal thoughts (past or present) (recently had some passive thoughts of /survival ambivalence- denies intent/plan) Physician Notification Past Psychiatric History MH Treatment Hx Past Psychiatric Medications:: None. Age of first mental health symptoms: Client states she has felt the last couple of years have been hard emotionally and this is her first time reaching out for mental health care. Describe (age, circumstance, etc) any past hospitalizations: None. Current providers for mental health treatment (counselor, psychiatrist, employment case manager, etc.): None. Fall Risk Assessment Age Age: Less than 60 Mental Status Mental Status: Willing & able to ask for assistance when needed Physical Status Physical Status: No problems Impairments Impairments: None Elimination Elimination: Continent AND independent Gait or Balance Gait or Balance: Walks independently Hx of Falls History of falls in the past 6 months: No known history Medications/Substances Medications/substances used within the past 24 hours or ordered to administer: None of the medications/substances list above Total Score Total Points:: 0 RN Summary of Impressions Impressions Recommendations Impressions: Psychiatric Issues: Major depressive disorder. Level of Care How do the client's current symptoms and functional deficits support need for this level of care?: Client referred herself to IOP due to a recent panic attack and breakdown where she cried for hours. Client states she has felt over the last couple of years she has felt many ups and downs, with getting her hopes up for good things to happen and to achieve her goals only to be let down. Client states it is frustrating seeing other people her age in stable relationships and kids when she has not found a partner that can respect her. Client states she is also stressed by her relationship with friends, saying she feels she is open to friends telling her what is bothering them about her but states if she tries to have a conversation with friends about issues her feelings are not validated. Client states this had lead her to start wondering what is the point of life? What am I doing here?. Client denies SI. Client does report some decreased appetite, decreased energy, and feelings of hopelessness at times. IOP will promote gains and prevent further decompensation while providing social support and skills training.
[2025-03-27 11:28] VITALS: BP 114/77; PULSE 66
--- NOTE | 2025-03-28 09:05 | BH.SGPN.GN ---
Behaviors/Verbalizations/Mental Status: [] Eye contact is good. Motor activity is appropriate. Appearance is casual. Speech is Appropriate. Mood is anxious. Affect is congruent. Thoughts are linear and logical. No evidence of psychosis. Reviewed daily check in sheet and no reports of suicidal ideations or intent. Client Response/Progress/Benefit: [] Pt participate when prompted. Attentive. Daily symptom tracker notes 2/5 for anxiety, depression, and irritability. Pt shared stressors from yesterday and overall how they can significantly impact her thoughts and overall mood. Brief check-in however this is only her second day in IOP and is adjusting to group dynamics. No progress noted. Benefited from group support, encouragement, and feedback. Will continue in IOP to prevent decompensation, increase healthy coping, and improve functioning Narrative Note: []
--- NOTE | 2025-03-28 11:15 | BH.SGPN.GN ---
Behaviors/Verbalizations/Mental Status: []Pt alert and oriented, casually dressed and groomed. Eye contact good. Motor activity appropriate. Speech within normal limits. Affect congruent, mood content. Thoughts linear, logical, no signs of hallucinations or delusions. Client Response/Progress/Benefit: [] Pt responded well to session, engaged and contributing. Pt discussed with group things that contribute to mental wellness life. With peers, pt discussed things that would sabotage one's mental health wellness. Pt identified things pt personally does to sabotage as perfectionism and unrealistic expectation. Pt attentive during psychoeducation on ways to reduce self-sabotage and pt selected using sitting with the uncomfortable and challenging her expectations?as the skill that could help pt reduce self-sabotaging behaviors. Pt appeared to benefit from learning skills and gaining awareness of self-sabotaging behaviors. Pt will continue IOP tx to prevent decompensation, improve thought challenge skills, and combat negative self-talk. Narrative Note: []Behaviors/Verbalizations/Mental Status: []Pt alert and oriented, casually dressed and groomed. Eye contact good. Motor activity appropriate. Speech within normal limits. Affect congruent, mood content. Thoughts linear, logical, no signs of hallucinations or delusions. Client Response/Progress/Benefit: [] Pt responded well to session, engaged and contributing. Pt discussed with group things that contribute to mental wellness life. With peers, pt discussed things that would sabotage one's mental health wellness. Pt identified things pt personally does to sabotage as perfectionism and unrealistic expectation. Pt attentive during psychoeducation on ways to reduce self-sabotage and pt selected using sitting with the uncomfortable and challenging her expectations?as the skill that could help pt reduce self-sabotaging behaviors. Pt appeared to benefit from learning skills and gaining awareness of self-sabotaging behaviors. Pt will continue IOP tx to prevent decompensation, improve thought challenge skills, and combat negative self-talk. Narrative Note: []
--- NOTE | 2025-03-28 15:00 | BH.SGPN.GN ---
Behaviors/Verbalizations/Mental Status: [] Pt alert and oriented, casually dressed and groomed. Eye contact good. Motor activity appropriate. Speech within normal limits. Mood: depressed. Affect: congruent. Thoughts linear, logical, no signs of hallucinations or delusions. Client Response/Progress/Benefit: [] Pt was an active participate during group discussions. Attentive during psychoeducation on self-sabotage and its impact on mental health. Worked with peers to identify reasons individuals perform self-sabotage behaviors (fear of rejection, learned behavior, coping mechanism, fear of failure, insecurity, and feeling like they are not worthy). Pt identified the forms of self-sabotage that impact their mental health the most which included (isolation, perfectionism, lashing out, procrastination, poor communication and people-pleasing). Seemed to benefit from gaining awareness about the self-sabotage. Pt to continue IOP tx to prevent decompensation, increase healthy coping, and stabilize mood. Narrative Note: []
--- NOTE | 2025-04-01 09:02 | BH.SGPN.GN ---
Behaviors/Verbalizations/Mental Status: [] Client alert and oriented, casual appearance. Eye contact good. Motor activity appropriate. Speech within normal limits. Affect congruent, mood euthymic and slightly anxious. Thoughts linear, logical, no signs of hallucinations or delusions. Reviewed client's symptom tracker, no risk for suicidal ideation, plan, or intent. Client Response/Progress/Benefit: [] Client responded well to session AEB listening to others and sharing thoughts/feelings. Client reported mental positive as applying the Crystal conization information she learned in group the other day with her ex boyfriend. Client stated although the conversation did not end and how she was hoping she is happy she had a conversation because it gave her information that is helping with closure with this relationship. Client noted additional month of positive as a friend reach out to her to reconnect. Client stated current stressor as her mom is having hip surgery this week which is adding more responsibility to client's plate. Appeared to benefit from support from peers. Will continue IOP tx to continue building healthy coping skills, improve view of self, and prevent decompensation. Narrative Note: []
--- NOTE | 2025-04-01 10:10 | BH.SGPN.GN ---
Behaviors/Verbalizations/Mental Status: []Pt alert and oriented, casually dressed and groomed. Eye contact good. Motor activity appropriate. Speech within normal limits. Mood is euthymic. Affect is congruent. Thoughts linear, logical, no signs of hallucinations or delusions. Client Response/Progress/Benefit: [] Pt was an active?participant in group discussions and experiential activity. Worked with peers to identify benefits of healthy relationships which included; support, shared experiences, laughter, understanding, and perspective challenge. Group identified factors that lead to unhealthy relationships which included; not being a ?good space mentally,? trauma-bonding, poor communication, and manipulation/toxic behaviors. Pt feels she has been in several unhealthy relationships because of ?bad patterns I can?t break.? Benefited from increased insight and awareness of benefits of healthy relationships and factors that contribute to unhealthy relationships. Will continue IOP to prevent decompensation, improve daily functioning, and gain interpersonal effectiveness skills. ? Narrative Note: []
--- NOTE | 2025-04-01 11:00 | BH.SGPN.GN ---
Behaviors/Verbalizations/Mental Status: [] Pt alert and oriented, casually dressed and groomed. Eye contact good. Motor activity appropriate. Speech within normal limits. Mood depressed. Affect congruent. Thoughts linear, logical, no signs of hallucinations or delusions. Client Response/Progress/Benefit: [] Pt responded well to session, engaged and taking notes throughout. Worked with group to connect components of the experiential activity with characteristics of healthy and unhealthy relationships. Attentive during psychoeducation about characteristics of healthy, unhealthy, and abusive relationships. Pt reported she has some healthy traits and she wants to work on ?setting boundaries in relationships? Appeared to benefit from identifying current healthy relationship attributes. Pt to continue IOP tx to prevent decompensation, improve emotion regulation, and increase healthy coping Narrative Note: []
--- NOTE | 2025-04-01 15:01 | BH.MTP_ITS ---
Master Treatment Plan Patient Information Program Physician:: Dr. Cyndie Gillespie Primary Therapist:: Carolee MONTES Psychiatric Diagnoses Psychiatric Diagnoses:: MDD, recurrent, moderate F33.1 Diagnosis Code(s):: F 33.1 Estimated LOS Estimated LOS (in weeks):: 6 Problem/Goal #1 Problem/Goal #1 Stated Goal:: Pt will decrease depressive symptoms, crying spells, worthlessness, and negative self-talk. 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 Pt also reports patterns of unhealthy and unsatisfying relationships and she wants to settle down and get . Functional Impact: Pt is a 29-year-old female with a history of depression and anxiety who found [facility] online. Pt presents to [facility] due to a major breakdown pt had following numerous psychosocial stressors noted above. Pt endorses a depressed mood, low motivation, crying spells, racing thoughts, hopelessness, thoughts of , and feeling alone. Pt also notes low energy and issues with concentration and appetite. Pt's symptoms are impacting her ability to get out of bed and function at her baseline. Goal Relevant Strengths/Supports: Pt is engaged in treatment, has support from family, and is motivated. Objectives Objective #1: Stated Objective: Pt will learn and utilize 2-3 healthy coping strategies to better manage depressive symptoms as shown by a decrease of DMS-5 symptoms for depression. Interventions: Through group and individual sessions, therapist will help pt identify triggers and warning signs of depression and guilt including emotional, physical, and behavioral changes. Therapist will teach pt various coping skills to manage symptoms and give pt tangible resources to use to regulate emotions. Therapist will use cognitive restructuring techniques and help pt gain awareness of negative thoughts that reinforce guilt and depression. Therapist will provide psychoeducation on maintenance cycles and help pt learn ways to break unhealthy maintenance cycles. Therapist will help pt incorporate behavioral activation and assist pt in setting SMART goals. Discharge Criteria: Pt will have met this goal when can report learning and using at least 2 coping skills to manage depressive symptoms and reduce isolation. Additionally, pt will have met this goal when pt's DSM-5 scores for depression decrease. Target Date: 05/08/25 Review Date: 04/17/25 Status: open Objective #2: Stated Objective: Pt will identify at least 2-3 negative self-talk messages used to reinforce negative core beliefs, worthlessness, and isolation and replace thoughts with balanced, realistic messages. Interventions: Therapist will help pt identify distorted, negative beliefs about self and replace with more realistic, affirmative messages. Therapist will use CBT and DBT to help pt increase insight to the connection between thoughts, emotions, and behaviors. Therapist will encourage pt to practice thought challenging. Discharge Criteria: Pt will have achieved this goal when can verbalize at least 2 cognitive distortions and effectively replace those thoughts with affirmative messages. Target Date: 05/08/25 Review Date: 04/17/25 Status: open Problem/Goal #2 Problem/Goal #2 Stated Goal:: Pt will reduce anxiety symptoms and increase distress tolerance skills. 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 Pt also reports patterns of unhealthy and unsatisfying relationships and she wants to settle down and get . Functional Impact: Pt is a 29-year-old female with a history of depression and anxiety who found [facility] online. Pt presents to [facility] due to a major breakdown pt had following numerous psychosocial stressors noted above. Pt endorses a depressed mood, low motivation, crying spells, racing thoughts, hopelessness, thoughts of , and feeling alone. Pt also notes low energy and issues with concentration and appetite. Pt's symptoms are impacting her ability to get out of bed and function at her baseline. Goal Relevant Strengths/Supports: Pt is engaged in treatment, has support from family, and is motivated. Objectives Objective #1: Stated Objective: Pt will increase ability to manage stressors and anxiety by gaining 2-3 distress tolerance skills. Interventions: Through group and individual therapy, pt will learn various coping skills to help manage stress and anxiety. Therapist will utilize DBT distress tolerance skills to increase awareness and give pt tools to more effectively manage anxiety. Therapist will provide psychoeducation on emotional regulation and help pt identify unhealthy coping skills he wants to change. Discharge Criteria: Pt will have accomplished this goal when can report improved ability to manage stressors and identify at least 2 distress tolerance skills. Target Date: 05/08/25 Review Date: 04/17/25 Status: open
--- NOTE | 2025-04-01 15:04 | BH.PSA_ITS ---
Source of Information Presenting Problems/Circumstances Problems, Referral Source, Mental Status, Client: Pt is a 29-year-old female with a history of depression and anxiety who found [facility] online. Pt presents to [facility] due to a major breakdown pt had following numerous psychosocial stressors noted above. Pt endorses a depressed mood, low motivation, crying spells, racing thoughts, hopelessness, thoughts of , and feeling alone. Pt also notes low energy and issues with concentration and appetite. Pt's symptoms are impacting her ability to get out of bed and function at her baseline. Psychiatric Presentation Psych Issues & Need for Admission Psychiatric Issues:: MDD, recurrent, moderate, without psychosis F 33.1; familial and work stress. Past Psychiatric History MH Treatment Hx Treatment History: Pt saw a therapist for the first time 6 year ago when she was experiencing depression and anxiety triggered by issues with acne. Pt also noted she saw a fish and wildlife scientific aid within the past few years to help pt with relationship issues. Pt has no medication trials and only began taking Zoloft when she started IOP. First hospitalization:: n/a Most recent hospitalization:: n/a ECT Therapy:: No Age of first mental health symptoms: Pt feels that her first mental health symptoms started around 6 years ago when she was experiencing very bad acne and this made pt depressed and anxious. Pt briefly saw a therapist at this time. Describe (age, circumstance, etc) any past hospitalizations: No previous psychiatric hospitalizations. Current providers for mental health treatment (counselor, psychiatrist, caser up, etc.): Pt is not currently seeing a psychiatrist or a therapist. 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 Pt is close with her parents and her parents are . Pt has never been and has no children. Pt has had several serious relationships, but none currently. Family History Family History Other Breast cancer CVA (cerebral vascular accident) Cancer Cervical cancer Diabetes Heart disease Ethnicity Culture Do you identify yourself with any particular cultural, ethnic background, or community?: No Sexuality Sexual Orientation: Heterosexual Mental Status Memory Recent Memory: Good Remote Memory: Good Concentration Concentration: Good Eye Contact Eye Contact: Good Speech Speech: Articulate Thought Process Thought Process: Logical Insight: Good Judgment: Fair Behavior: Calm Orientation Orientation: Time, Person, Place and Situation Appearance Appearance: Neat/clean Mood Mood: Anxious and Happy Affect Affect: Appropriate/calm Suicide Assessment Suicidal Ideation Have you ever felt like hurting yourself?: No Please explain:: Pt had thoughts of and survival ambivalence, but no SI. Were you using ETOH/drugs at the time?: No Suicidal Intentional Rating Scale (SIRS): No suicidal thoughts (past or present) Physician Notification Violent Behavior/Abuse History Homicidal Ideation Do you have any homicidal thoughts? If so, explain:: No Abuse Have you ever been abused?: No Life Events Are there any other significant life events?: Hardships (intimate relationship hardships, leaving a job she loved, mom's health.) and Family illness (mother's surgery) Safety Do you ever feel threatened in your home? If yes, describe:: No Adult Social History Age 18 to Present Describe your current support system:: Pt is close with her family and she has some close friends. 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 Service Service Have you ever been in the ?: No Legal History Records Have you had any past legal charges?: No Do you have any current legal charges?: No Have you ever been incarcerated? If yes, describe:: No Court Orders Have you had any past court orders for psychiatric treatment?: No Do you have a present court order for psychiatric treatment?: No Problem Checklist Current Problem Areas Problem List: Nutritional/Eating pattern changes, Depressed mood/sad, Anxiety, Inattention, Substance use (casual drinker on the weekends.), Pertinent health issues (History of epilepsy, on Tegretol) and Additional psychosocial stressors Discharge Planning Needs Anticipated Follow-Up Mental Health Center (Name/Phone Number):: none currrently. Manager Software Development's Assessment Client's Needs What are the client's strengths?: Pt is engaged in treatment, has support from family, and is motivated. Diagnoses Diagnoses Diagnosis #1:: MDD, recurrent, moderate, without psychosis. Diagnosis #2:: ESTUARDO Interpretive Summary Interpretive Summary Interpretive Summary: Pt is a 29y/o female who presented to [facility] program for further evaluation and treatment of depression and anxiety/mood fluctuations. Pt presented to [facility] after Pt had a breakdown several weekends ago when Pt felt extreme stress and like everything was crumbling. Pt had fallouts with close friends and a recent break-up with a boyfriend and has been helping take care of her mom who has been using a walker and is supposed to have hip surgery on . 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 Pt has had poor appetite, does not enjoy going to the gym like Pt used to, sometimes difficulty falling asleep due to anxiety and racing thoughts but sleeps well after Pt falls asleep, when Pt is having episodes of stress Pt will feel drained and Pt also r eports excessive guilt. Pt has had some thoughts that Pt would be okay not waking up in the morning, not as much this past week because Pt reports Pt feels a little bit better though still having the symptoms as above. Denies HI, no AH or VH. Notes that Pt is a very anxious person and is a perfectionist and people pleaser, will sometimes feel racing heart when Pt is very anxious. Endorses some checking behaviors (going to check that Pt turned off her curling iron) but no other symptoms be consistent with OCD. Denies any nightmares or flashbacks reports Pt has been losing weight but notes Pt has not been trying to, Pt has been forcing herself to eat but said even her roller embosser noticed Pt lost weight, so Pt thinks this is probably a problem. Overall Pt reports Pt has had difficulty with the symptoms like low mood and high anxiety when there have been acute stressors in her life and they wax and wane over time even without medication but Pt is concerned at the severity of her mood swings and would like something to help even out her symptoms. Pt has no family history of pervasive mental health symptoms, but pt feels her father has high stress. No history of AoD in the family. Pt denies history of trauma to this therapist. Treatment Plan Recommendations Recommendations Guidelines Recommendations:: Pt will begin IOP as the program's structure, support, education, and therapy aim to prevent deterioration of symptoms and avoid the need for PHP or inpatient hospitalization. I have a reasonable expectation that the patient will make practical improvements in their presenting symptoms and will be discharged to a lower level of care. Pt will need outpatient therapy following IOP discharge.
--- NOTE | 2025-04-01 15:23 | BH.MDN ---
Multi-Disciplinary Note Note 60-min Individual: Time Started:: 12:05 Date: 04/01/25 Purpose of session/treatment goals addressed:: To gather information on pt's current stressors, symptoms, triggers, history, and tx goals. Another goal was to build rapport and provide emotional support. Eye Contact:: Good Motor Activity:: Appropriate Appearance:: Neat Speech:: Appropriate Mood:: Euthymic and Anxious Affect:: Congruent Thoughts:: Linear, Logical and No evidence of hallucinations/delusions noted Staff Interventions:: rapport building, strengths perspective, treatment planning and goal setting Client Response:: Pt responded well to session, open to meeting with therapist. Pt reported she has had some counseling in the past and had a relationship trampoline team coach once and found this helpful. Pt sought services at [facility] because it just felt like life kept hitting me with stuff, one thing after another. Pt shared these psychosocial stressors which were her mother's declining health, and work issues, relationship issues. 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 Pt reports this was a source of contention between pt and her brother and father for a while, but it is somewhat improving. 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 Pt ultimately left this job because of the stress she was feeling. Pt shared prior to coming to IOP she had a break down and had thoughts of which then led to her coming to IOP. Pt continues to have relationship issues with her now ex-boyfriend. Pt shared I fall back into these patterns and I don't want to keep doing that. Pt feels sad and frustrated over not being where I thought I'd be at this age. Pt shared it is hard to fully move on from her last relationship because she wants to get and she thought he was her person. Pt reports since there have been a lot of life stressors recently, she feels that good things won't last so I tell myself that. Pt sees this as a form of self-sabotage and wants to work on this. Risks/Concerns:: Pt denies any suicidal ideations, plan, or intent. Pt denies any thoughts of . Progress Toward Goals/Plan:: Pt started IOP on 03/27/25 so no significant progress to document at this time. Pt does report benefitting from the group sessions so far and she feels that the topics have really related to me. Pt wants to focus most on not falling back into old patterns when it comes to relationships and reducing negative self-talk. Pt also recognizes that her symptoms worsen around her menstrual cycle and wants to know if there is something that can help with this. Pt will continue IOP tx to promote mood stability, improve daily functioning, and combat distortions. Time Stopped:: 12:58
--- NOTE | 2025-04-02 09:05 | BH.SGPN.GN ---
Behaviors/Verbalizations/Mental Status: [] Eye contact is good. Motor activity is appropriate. Appearance is casual. Speech is Appropriate. Mood is anxious. Affect is congruent. Thoughts are linear and logical. No evidence of psychosis. Reviewed daily check in sheet and no reports of suicidal ideations. Client Response/Progress/Benefit: [] Pt was an active participant in group discussion. Attentive. Daily symptom tracker notes 3/5 for anxiety/agitation and 2/5 for depression. She reports improve mood over the past week which she attributes to medication and ? coming here?. Overall depression, stress, and anxiety reported to be ?reduced?. Progress noted. Benefited from group support, encouragement, and feedback. Will continue in IOP to prevent decompensation, increase healthy coping, and improve emotional regulation. Narrative Note: []
--- NOTE | 2025-04-02 10:00 | BH.SGPN.GN ---
Behaviors/Verbalizations/Mental Status: []Eye contact is good. Motor activity is appropriate. Appearance is casual. Speech is Appropriate. Mood is anxious. Affect is congruent. Thoughts are linear and logical. No evidence of psychosis. Client Response/Progress/Benefit: [] Pt was an active participant in group discussions. Attentive during psychoeducation. Contributed during interactive discussions in which peers attempted to define crisis. Group identified crisis examples. Group also worked together to identify warning signs and unhealthy responses to crisis which included shutting down, isolation, avoidance, over-thinking, disordered eating, and self-harm. Pt identified top 3 warning signs as: racing thoughts, negative self-talk, low motivation. Benefited from increased understanding of crisis and awareness of personal responses to crisis. Pt will continue IOP tx to promote mood stability, reduce negative thinking patterns, and increase self-compassion. Narrative Note: []
--- NOTE | 2025-04-02 11:10 | BH.SGPN.GN ---
Behaviors/Verbalizations/Mental Status: []Pt alert and oriented, appropriate grooming/appearance. Eye contact good. Motor activity appropriate. Speech within normal limits. Affect congruent, mood anxious. Thoughts linear, logical, no signs of hallucinations or delusions. Client Response/Progress/Benefit: []Pt was an active participant in group discussions. Attentive during psychoeducation. In small group pt along with peers developed an active plan for their crisis warning signs. Pt identified three crisis warning signs as well as an action plan for each. One crisis warning sign was avoidance. Pt identified strategies to help with this such as: Talking with her support system, setting small daily goals, changing her environment, opposite action, and engage in self-care. Benefited from increased awareness of crisis warning signs and by developing crisis intervention strategies. Will continue in IOP to improve distress tolerance, increase use of healthy coping, and improve daily functioning. Narrative Note: []
--- NOTE | 2025-04-03 09:00 | BH.SGPN.GN ---
Behaviors/Verbalizations/Mental Status: [] Client alert and oriented, casual appearance. Eye contact good. Motor activity appropriate. Speech within normal limits. Affect congruent, mood euthymic adn anxious. Thoughts linear, logical, no signs of hallucinations or delusions. Reviewed client's symptom tracker, no risk for suicidal ideation, plan, or intent. Client Response/Progress/Benefit: [] Client responded well to session AEB listening to others and sharing thoughts/feelings. Client reported mental positive as showed up today. Client stated additional mental health positive as noticing her mood is improving since coming to IOP. Client reported current stressor is her mom is having surgery tomorrow. 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 Appeared to benefit from support from peers. Will continue IOP tx to challenge negative thoughts, continue to maintain boundaries, and prevent decompensation.
--- NOTE | 2025-04-03 10:10 | BH.SGPN.GN ---
Behaviors/Verbalizations/Mental Status: [] Client alert and oriented, casually dressed and groomed. Eye contact good. Motor activity appropriate. Speech within normal limits. Affect congruent, mood euthymic. Thoughts linear, logical, no signs of hallucinations or delusions. Client Response/Progress/Benefit: [] Client was an active participant in activity and taking notes during group discussion. Attentive during psychoeducation on coping skills, why people use unhealthy coping skills, and how to replace unhealthy coping skills. Benefited from increased understanding of unhealthy coping skills and the need for developing healthy interna and external coping skills. Client will continue IOP tx to prevent decompensation, increase healthy thought patterns, and improve daily functioning. Narrative Note: []
--- NOTE | 2025-04-03 11:10 | BH.SGPN.GN ---
Behaviors/Verbalizations/Mental Status: [] Client alert and oriented, casually dressed and groomed. Eye contact good. Motor activity appropriate. Speech within normal limits. Affect congruent mood euthymic. Thoughts linear, logical, no signs of hallucinations or delusions. Client Response/Progress/Benefit: [] Client responded well to session AEB taking notes and providing some input and examples throughout. Group discussed the different categories of coping skills which included distraction, emotional release, grounding, self-love, and thought challenging. Client created a coping skill menu identifying various skills to try in each category. Client?s coping skill menu included: watching tv, forgiving/acceptance, mindfulness, positive thoughts, and self talk. Appeared to benefit from increasing repertoire of healthy coping skills. Client will continue IOP tx to improve daily functioning, reduce negative thinking, and increase application of healthy coping skills. Narrative Note: []
--- NOTE | 2025-04-08 10:10 | BH.SGPN.GN ---
Behaviors/Verbalizations/Mental Status: [] Client alert and oriented, casual appearance. Eye contact good. Motor activity appropriate. Speech within normal limits. Affect congruent, mood euthymic. Thoughts linear, logical, no signs of hallucinations or delusions. Client Response/Progress/Benefit: [] Pt receptive to session AEB contributing to small group discussion, as well as listening attentively to others, and taking notes. Worked with group to brainstorm the positive and negative aspects of stress on physical and mental health. Group did well to identify the benefits of stress as well as the impact of distress on performance, relationships, and mental health. Pt identified their personal top stressors as: Relationships, friendships, and worries about the future. Patient stated when she has an overfilled stress*she tends to respond by crying, shutting down, and lashing out at others. Pt seemed to benefit from increased awareness of current stressors and impact stress has on mental health. Pt will continue IOP tx to challenge distorted thought patterns, improve healthy coping, and prevent decompensation. Narrative Note: []
--- NOTE | 2025-04-08 11:10 | BH.SGPN.GN ---
Behaviors/Verbalizations/Mental Status: []Eye contact is good. Motor activity is appropriate. Appearance is casual. Speech is Appropriate. Mood is euthymic. Affect is congruent. Thoughts are linear and logical. No evidence of psychosis. Client Response/Progress/Benefit: [] Pt was an attentive participant in group discussions and actively engaged during experiential activity, doing well to regulate their emotions throughout the activity and work with peers. Attentive during psychoeducation on the 4 A's (Avoid, adapt, alter, accept) of coping with stress. Shared that they would benefit most from practicing self-forgiveness for the ways she managed stressors in the past. Was able to identify the connection between the experiential activity and utilization of stress management skills. Benefited from increased awareness of stress management strategies. Pt will continue IOP to increase consistent use of healthy coping skills, challenge negative thoughts, and increase overall functioning. Narrative Note: []
--- NOTE | 2025-04-08 14:24 | BH.MDN ---
Multi-Disciplinary Note Note 45-min Individual: Time Started:: 09:20 Date: 04/08/25 Purpose of session/treatment goals addressed:: To work on goal #1 objective #2 of pt's tx plan. Eye Contact:: Good Motor Activity:: Appropriate Appearance:: Neat Speech:: Appropriate Mood:: Anxious Affect:: Full Thoughts:: Linear, Logical and No evidence of hallucinations/delusions noted Staff Interventions:: motivational interviewing, CBT techniques, mindfulness skills, strengths perspective, taught coping skills (dialectical thinking) and other (mistaken belief questionnaire for homework) Client Response:: Pt responded well to session, open to meeting with therapist. Pt reports feeling anxious today as pt has been ruminating over several life stressors and feeling overloaded by these. 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 Pt shared she sometimes feels that her parents forget I have a life too but pt stated she loves them and will continue to help them. Pt also has been ruminating about a turbulent friendship that pt shared became torn due to boy problems. Pt shared she is still ruminating about her ex-boyfriend as well. Pt stated she is trying to move past these things and she was receptive to talking about acceptance and well as dialectical thinking. Pt is working on gaining insight that two things can be true and she can be right and someone else can be right. Pt shared one of the most difficult things to accept is I'm always the bad leon as pt shared she will do things or say things because she values honesty, but then people turn it back on her. For example, pt shared she told her friend something about the friend's boyfriend, and the friend got upset with pt. Discussed boundary setting barriers and why pt values sharing concerns. Pt encouraged to complete the mistaken belief questionnaire for homework. Risks/Concerns:: Pt denies any suicidal ideations, plan, or intent. Pt denies any thoughts of . Progress Toward Goals/Plan:: Pt continues to respond well to tx AEB pt's report of using coping skills outside of IOP and reporting benefitting from the medication. Pt receptive to exploring core beliefs and completing the assessment from homework. Pt reports ongoing ruminations and depressive symptoms related to stressors. Pt has lost some supports recently and this has impacted pt's mental health and self-confidence. Pt will continue IOP tx to work on combatting negative thought patterns, improving self-compassion, and increasing distress tolerance. Time Stopped:: 10:10
--- NOTE | 2025-04-10 09:00 | BH.SGPN.GN ---
Behaviors/Verbalizations/Mental Status: [] ?Eye contact is good. Motor activity is appropriate. Appearance is casual. Speech is Appropriate. Mood is content. Affect is congruent. Thoughts are linear and logical. No evidence of psychosis. Reviewed daily check in sheet and no reports of suicidal ideations or intent. Client Response/Progress/Benefit: [] ?Pt was an active participant in group discussions. Attentive. Did well to identify 2 mental health wins including managing to continue to practice healthy boundary setting and described recently doing so in a conversation with a friend. Additional win noted as being able to continue to reach out to supports about her mental health. Noted this has been hard for her in the past. Stressor noted as ongoing issues in balancing self-care with helping out her parents. Progress noted. Benefited from group support, encouragement, and feedback. Will continue in IOP to prevent decompensation, promote mood stability, and increase healthy coping consistency. Narrative Note: []
--- NOTE | 2025-04-10 10:10 | BH.SGPN.GN ---
Behaviors/Verbalizations/Mental Status: [] Eye contact is good. Motor activity is appropriate. Appearance is casual. Speech is Appropriate. Mood is anxious. Affect is congruent. Thoughts are linear and logical. No evidence of psychosis. Client Response/Progress/Benefit: [] Pt was attentive during psychoeducation and participated in group activity. Group discussed what influences a person?s perspective and how perspective can positively or negatively impact mental health treatment. Group identified several factors that can influence perspective which include; mood, current stressors, sleep, health, hunger, and several others.?Pt appeared to benefit from increasing awareness of different perspectives and how they can affect mental health. Pt will continue IOP tx to prevent decompensation and increase healthy coping. Narrative Note: []
--- NOTE | 2025-04-10 11:05 | BH.SGPN.GN ---
Behaviors/Verbalizations/Mental Status: []Pt alert and oriented, casually dressed and groomed. Eye contact good. Motor activity appropriate. Speech within normal limits. Affect congruent, mood calm. Thoughts linear, logical, no signs of hallucinations or delusions. Client Response/Progress/Benefit: [] Pt was attentive and contributed to group discussion. Pt worked with group to identify strategies that can help with challenging negative perspective. Pt stated they can practice looking at positive outcomes to challenge negative perspective. Pt completed strengths exploration worksheet, identifying personal strengths. Pt able to acknowledge how these strengths are helping pt and can continue to help pt in mental health journey. Pt identified wanting to work on utilizing her strength of persistence to keep working on bettering herself and improve her mental health. Benefited from identifying personal strengths and strategies for enhancing use of identified strengths. Pt will continue IOP tx to increase application of healthy coping skills, improve emotional regulation skills, and improve self-confidence. ?? Narrative Note: []
--- NOTE | 2025-04-15 10:10 | BH.SGPN.GN ---
Behaviors/Verbalizations/Mental Status: [] Eye contact is good. Motor activity is appropriate. Appearance is neat and casual. Speech is Appropriate. Mood is euthymic. Affect is congruent. Thoughts are linear and logical. No evidence of psychosis. Client Response/Progress/Benefit: [] Pt participated at times during group discussions and interactions. Attentive during psychoeducation on automatic negative thoughts (ANTS) and cognitive distortions. This group was very psychoeducation heavy. Pt did participated during interactive discussions in which peers defined and gave examples of ANTS. Participated during interactive discussion on definition of cognitive distortions and examples related to the 10 cognitive distortions presented. Client stated top distortions she uses are labeling and jumping to conclusions. Benefited from increased insight and awareness of cognitive distortions and their impact on emotions and behaviors. Will continue in IOP to improve view of self, challenge negative thoughts, and prevent decompensation.
--- NOTE | 2025-04-15 11:10 | BH.SGPN.GN ---
Behaviors/Verbalizations/Mental Status: []Pt alert and oriented, neatly dressed and groomed. Eye contact good. Motor activity appropriate. Speech within normal limits. Affect congruent, mood euthymic. Thoughts linear, logical, no signs of hallucinations or delusions. Client Response/Progress/Benefit: [] Client responded well to session AEB input and examples during group activity. Group discussed and practiced methods of reframing cognitive distortions. Client participated in identifying cognitive distortions when examples were provided. Client discussed in group the different strategies to overcome the distortions. Client identified connecting with dialectical thinking as a strategy. Will continue tx to promote use of healthy coping skills, increase distress tolerance skills, and improve self-compassion. Narrative Note: []
--- NOTE | 2025-04-15 13:17 | BH.MDN ---
Multi-Disciplinary Note Note 45-min Individual: Time Started:: 09:15 Date: 04/15/25 Purpose of session/treatment goals addressed:: To review homework from last session and work on interpersonal effectiveness skills. Eye Contact:: Good Motor Activity:: Appropriate Appearance:: Neat Speech:: Appropriate Mood:: Euthymic and Anxious Affect:: Full Thoughts:: Linear, Logical and No evidence of hallucinations/delusions noted Staff Interventions:: thought challenging, CBT techniques, strengths perspective, taught coping skills (Worked on interpersonal effectiveness skills when having crucial conversations) and other (reviewed homework on mistaken beliefs.) Client Response:: Pt responded well to session, open to meeting with therapist. Pt reports she finished the questionnaire and we reviewed it. Pt scored highest for the belief that her worth is dependent on how perfect she is and that her worth is dependent on her achievements. Pt stated she is not sure where these beliefs came from because her parents were never the parents that made us get straight A's. Pt shared she has always been hard-wired to excel and there are a lot of things in life that this helps pt do well, but pt shared she also is very rigid with goals and expectations. Pt gave examples of having to have the perfect body, spending a lot of time and money on her beauty, and feeling like she is still not good enough. Pt shared her belief on beauty likely came from being overweight throughout childhood and having really bad acne. Pt stated she still freaks out if she gains weight or if she sees a zit. Pt reports that she is wanting to change her beliefs about perfection and worth based on achievement as pt noted these beliefs cause more stress than benefit. Pt receptive to working on identifying behaviors she has based on her beliefs so pt can begin creating new beliefs. Pt also wanted to work on skills for crucial conversations as pt wants to address the tension in her friendships. Pt plans to reach out to one of her friends she has been estranged from recently and asked how she should approach this. Pt receptive to skills such as I-statements, asserting expectations and boundaries, and regulating her emotions and knowing when to walk away or pause. Pt appeared to benefit from reminding herself to stick to the real problem and not using statements that lead to defensiveness. Risks/Concerns:: Pt denies any suicidal ideation, plan, or intent. Pt denies any thoughts of . Progress Toward Goals/Plan:: Pt continues to make progress towards tx goals AEB pt's self-report of improving mood and functioning. Pt's stressors are ongoing, but pt feels that she is managing them better than she was within the past few months. Pt is consistent with using coping skills outside of IOP and she consistently completes homework. Pt will continue IOP tx to strengthen coping skills, increase self-compassion, and build healthier core beliefs. Time Stopped:: 10:05
--- NOTE | 2025-04-17 09:00 | BH.SGPN.GN ---
Behaviors/Verbalizations/Mental Status: [] ?Eye contact is good. Motor activity is appropriate. Appearance is casual. Speech is Appropriate. Mood is hilary. Affect is congruent. Thoughts are linear and logical. No evidence of psychosis. Reviewed daily check in sheet and no reports of suicidal ideations or intent. Client Response/Progress/Benefit: [] ?Pt was an active participant in group discussions. Attentive. Did well to identify 2 mental health wins including continuing to be in a better mood, which she attributes to maintaining consistent medication management and applying her skills. Additional win noted as going on a date and letting that be a sign she has begun to move forward from her past. Stressor noted as worrying about her niece who recently broke her arm. Progress noted. Benefited from group support, encouragement, and feedback. Will continue in IOP to prevent decompensation, promote mood stability, and increase healthy coping consistency. Narrative Note: []
--- NOTE | 2025-04-17 10:10 | BH.SGPN.GN ---
Behaviors/Verbalizations/Mental Status: [] Client alert and oriented, casually dressed and groomed. Eye contact good. Motor activity appropriate. Speech within normal limits. Affect congruent, mood euthymic and anxious. Thoughts linear, logical, no signs of hallucinations or delusions. Client Response/Progress/Benefit: [] Client responded well to session, contributing to discussion and engaged during the activity. Group identified the benefits of change which included: increased confidence, progressing towards goals, and improving mental and physical health. Worked with the group to identify barriers to change, which included: uncomfortable emotions such as anxiety, lack of energy, lack of supports, and negative influences. Client shared that feeling guilty has gotten in the way of making changes for her .Client participated along with group in activity where they identified and discussed the emotions related to change. Benefited from increased awareness and understanding of emotions, benefits, and barriers related to change. Will continue IOP tx to prevent decompensation and increase self worth. Narrative Note: []
--- NOTE | 2025-04-17 11:10 | BH.SGPN.GN ---
Behaviors/Verbalizations/Mental Status: [] Client alert and oriented, casually dressed and groomed. Eye contact good. Motor activity appropriate. Speech within normal limits. Affect congruent, mood euthymic. Thoughts linear, logical, no signs of hallucinations or delusions Client Response/Progress/Benefit: [] Client responded well to session, attentive. Did well to process activity and work with group to relate the strategies used to overcome barriers in the activity to managing change in own life. Client identified a change they would like to make is putting self first more and decreasing people pleasing behaviors. Client identified currently being in preparation stage for this particular change. Client stated goal is to show up to IOP everyday. Appeared to benefit from identifying a small goal to work towards. Client will continue IOP tx to prevent decompensation, gain healthy coping skills, and improve self worth. Narrative Note: []
--- NOTE | 2025-04-17 11:16 | PCM.BH.PN ---
Intake Vital Signs 06/04/24 13:57 03/27/25 10:30 03/27/25 11:28 04/17/25 11:16 Height 1.6 m 1.6 m 1.6 m 1.6 m Weight: 61.235 kg BP 114/77 Pulse 66 Intake Visit Reasons: MDD Allergies No Known Allergies Allergy (Verified 03/27/25 11:17) Medications ?Medication ?Instructions ?Recorded ?Confirmed ?Type carbamazepine 400 mg 400 mg PO BID 12/10/16 03/27/25 History tablet,extended release,12 hr spironolactone 100 mg tablet 100 mg PO DAILY 03/27/25 03/27/25 History (Aldactone) sertraline 25 mg tablet (Zoloft) 25 mg PO DAILY 30 days #30 tabs 04/17/25 Rx HPI () History of Present Illness History provided by: patient Chief complaint: f/u MDD HPI: -Current psychiatric medications: Zoloft 25 mg Reports she is feeling better, still sometimes will feel anxious or will focus on her stressors but notes she is handling them better on this medication at current dose. She has felt a little bit more tired however has been working outside in the heat and thinks that this may be contributing. Does note that around the time of her period she was having significant mood swings and had concern she had PMDD but being on the Zoloft has helped with the symptoms as well. Appetite still not great but has been better at breakfast and dinnertime. No SI/HI. No AH/VH. Confirmed that she is taking 25 mg of Zoloft with her, does not seem that she went up on the dose to 50 mg but given she finds this helpful and is tolerating we will continue at current dose with room for adjustment if necessary. Overall feels she is tolerating it well. Developmental History Developmental History: GENEVIEVE is the [ ORDER]. The pt was born and raised in [ ]. Education level completed [ ]. Pt describes his/her childhood as [ ]. Exam Mental Status Exam- Psych () Appearance casually dressed, adequately groomed, no apparent distress and well kempt Attitude cooperative and calm Activity/Motor Behavior MSE activity/motor behavior finding no adventitious movements Speech regular rate and regular volume Mood euythmic Affect full range Thought Process linear and logical Thought Content no delusions and no hallucinations Suicidal Ideation none Homicidal Ideation none Attention intact Concentration intact Sensorium/Orientation awake and alert Memory/Cognition intact Insight fair Judgement fair Assessment & Plan () Assessment & Plan (1) MDD (major depressive disorder), recurrent episode, moderate: Plan: Confirmed that she is taking 25 mg of Zoloft with her, does not seem that she went up on the dose to 50 mg but given she finds the 25 mg helpful and is tolerating it we will continue at current dose with room for adjustment if necessary. She is in agreement. Overall feels she is tolerating it well. Medications: New sertraline Take 25mg daily for 1 week then increase to 50mg daily 60 tabs 0RF sertraline 25 mg PO DAILY 30 days 30 tabs 2RF Visit Details Comments: Spent a total of [ ] minutes on the date of the service which included [ ]. Charges/Coding Behavior Health Behavior Health EST Pt E/M: 28480 Est Pt Level IV
--- NOTE | 2025-04-17 15:46 | BH.TPR ---
Treatment Plan Review Demographics Date of Admission:: 03/27/25 Date of Treatment Plan Review:: 04/17/25 Admitting Diagnoses:: MDD, recurrent, moderate F33.1 Current Diagnoses:: MDD, recurrent, moderate F33.1 Patient Status Patient's Response to Treatment:: Pt has responded well to session AEB consistently attending IOP and engaging in both individual and group therapy sessions. Pt consistently completes homework provided from individual counseling. Pt contributes actively during group discussions, takes notes, appears to listen to others, and engages in group activities. Pt's overall DSM-5 scores have decreased by 66% since admission and she reports finding benefit from the coping skills so far. 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 Pt's symptoms have decreased since admission, but pt reports she is still experiencing issues within her personal relationships and wants to work on this. Progress Problem #1: Problem Name:: Depression, negative self-talk, thoughts of Status of Goals:: Objective 1- complete with ongoing work encouraged. Pt's DSM-5 scores for depression have creased by 67% since admission and pt reports no more thoughts of . Pt identifies using opposite action, thought challenging, and goal setting. Objective 2- in progress. Pt is currently working on replacing perfectionistic core beliefs with new, more compassionate ones. Team Recommendations:: Team recommends continued goals and objectives to reinforce skills and reduce symptoms. Team recommends pt continue working on combating distortions and building more balanced core beliefs. Problem #2: Problem Name:: Anxiety, life stress, panic Status of Goals:: Objective 1- complete with ongoing work encouraged. Pt's scores for anxiety have decreased by 71% since admission. Pt reports the medication has helped and so has learning how to communicate more effectively. Pt has been working on setting and maintaining boundaries as well. Team Recommendations:: Treatment team encourages pt to continue working on distress tolerance skills, verbalizing boundaries and setting boundaries with her parents, grounding skills, and practicing self-talk.
== END 2025-04-17 23:59 ==
LOC: BHIOP 09:28
PROVIDERS: Referring Provider Internal Medicine; Visit Provider Internal Medicine
DX: F33.1 Major depressive disorder, recurrent, moderate (principal)
CPT/HCPCS: S9480; 90834; 90837; 90853

== ENCOUNTER 2025-04-18 07:50 | Outpatient (RCR) | payer SELFPAY ==
--- NOTE | 2025-04-23 09:05 | BH.SGPN.GN ---
Behaviors/Verbalizations/Mental Status: [] Eye contact is good. Motor activity is appropriate. Appearance is casual. Speech is Appropriate. Mood is euthymic. Affect is full. Thoughts are linear and logical. No evidence of psychosis. Reviewed daily check in sheet and no reports of suicidal ideations or intent. Client Response/Progress/Benefit: [] Pt participated at times during the group discussions. Attentive. Able to identify mental health wins and healthy habits. Shared that she initiated a crucial conversation yesterday. Believes that she utilized assertive communication. Shared recent stressors, however, able to reframe and identify resiliency. Feeling ?content? and overall reports improve mental health which she attributes to IOP and medication addition. Benefited from group support, encouragement, and feedback. Will continue in IOP to prevent decompensation and increase healthy coping. Narrative Note: []
--- NOTE | 2025-04-23 10:05 | BH.SGPN.GN ---
Behaviors/Verbalizations/Mental Status: [] Eye contact is good. Motor activity is appropriate. Appearance is casual. Speech is Appropriate. Mood is content. Affect is congruent. Thoughts are linear and logical. No evidence of psychosis. Client Response/Progress/Benefit: [] Pt participated in the group discussions AEB providing input and taking notes. Attentive during psychoeducation on SMART Goal Setting. Pt worked with group to identify common barriers to goal setting which included; mental health struggles, energy/motivation, limited support, change to routine, lack or resources, having unrealistic goals, and our internal expectations. Group also identified benefits of goals, which included: promotes a sense of accomplishment, it challenges oneself, can boast confidence, and can cause positive change/growth. Pt identified personal benefits to goal setting which included a sense of purpose. Benefited from increased awareness of mental health benefits of goals as well as psychoeducation on SMART goal criteria. Will continue in IOP to prevent decompensation, increase self-confidence and advocacy, and maintain mood stabilty. Narrative Note: []
--- NOTE | 2025-04-23 11:05 | BH.SGPN.GN ---
Behaviors/Verbalizations/Mental Status: [] Pt alert and oriented. Appearance is casual, hygiene is appropriate. Eye contact good. Motor activity appropriate. Speech within normal limits. Affect is euthymic. Mood is congruent. Thoughts linear, logical, no signs of hallucinations or delusions. Client Response/Progress/Benefit: [] Pt was engaged during discussion and experiential activity. Completed the worksheet challenging them to develop a personal SMART goal. Pt chose a SMART goal to go to the gym four times a week. Believes this goal will benefit her by improving mood. Identified obstacles such as having to work over and something comes up. Brainstormed strategies to help her manage potential barriers. Benefited from this group by developing a short-term SMART goal related to mental health. Will continue IOP to prevent decompensation, improve confidence, and challenge negative thoughts.
--- NOTE | 2025-04-24 09:02 | BH.SGPN.GN ---
Behaviors/Verbalizations/Mental Status: [] Client alert and oriented, casual appearance. Eye contact good. Motor activity appropriate. Speech within normal limits. Affect congruent, mood euthymic. Thoughts linear, logical, no signs of hallucinations or delusions. Reviewed client's symptom tracker, no risk for suicidal ideation, plan, or intent. Client Response/Progress/Benefit: [] Client responded well to session AEB listening to others and sharing thoughts/feelings. Printed a symptom tracker client scored a 1 out of 5 for depression and a 1 out of 5 for anxiety. Client reported mental positive as being in a positive mood yesterday and this morning. Client noted her current stressor as having car issues but noted that overall she is handling the added stress more effectively than she would have in the past. Client noted her current emotion as content. Appeared to benefit from support from peers. Will continue IOP tx to promote healthy coping skills, continue to maintain boundaries, and prevent decompensation. Narrative Note: []
--- NOTE | 2025-04-24 10:15 | BH.SGPN.GN ---
Behaviors/Verbalizations/Mental Status: []Client alert and oriented, casually dressed. Eye contact good. Motor activity appropriate. Speech within normal limits. Affect congruent, mood mostly euthymic, frustrated at times. Thoughts linear, logical, no signs of hallucinations or delusions. Client Response/Progress/Benefit: [] Pt was an active participant AEB taking notes and engaging in group activity. Connected with the topic of pitfalls and listened to group discussion on barriers that prevent from choosing a healthier path to mental wellness. Group worked together to identify examples of personal pitfalls. These examples included; shutting down, not asking for help, negative thinking patterns, avoidance, and isolation. Pt did well in the experiential activity and was able to regulate stress and frustration in healthy ways. Pt benefited from group as Pt learned to better identify potential barriers to improving mental health symptoms. Identified personal barrier of perfectionistic expectations. Pt will continue IOP tx to promote use of healthy coping skills and further improve distress tolerance skills. ? Narrative Note: []
--- NOTE | 2025-04-24 14:54 | BH.MDN_ITS ---
Multi-Disciplinary Note Note 45-min Individual: Time Started:: 11:20 Date: 04/24/25 Purpose of session/treatment goals addressed:: To review progress, discuss aftercare options, and process pt's response to recent stressor. Eye Contact:: Good Motor Activity:: Appropriate Appearance:: Neat Speech:: Appropriate Mood:: Euthymic Affect:: Full Thoughts:: Linear, Logical and No evidence of hallucinations/delusions noted Staff Interventions:: thought challenging, motivational interviewing, CBT techniques, discharge planning, strengths perspective and other (dialectical thinking, discussed recent crucial conversation) Client Response:: Pt responded well to session, open to seeing therapist. Pt reports feeling in a good mood today and shared she had a crucial conversation with her friends like she had wanted to. Pt shared that after having the conversation, it made pt realize that she does not need these two in her life right now. Pt stated while they were talking I kept thinking who are these two? Pt reported she had planned to talk with just one of her friends, but they both showed which pt assumed might happen. Pt reports that she did well to manage her emotions and speak assertively. Pt reported she did not yell or become aggressive and I said everything I wanted to so I'm proud of myself. Pt noted that she still feels somewhat torn about how the dynamic of their friendship has changed, and pt appeared to benefit from discussion on grief of friendships. Discussed why friendships change and pt able to gain insight to why her friends might be responding the way they are. Pt noted that she will continue to be assertive and live according to her values. Risks/Concerns:: Pt denies any suicidal ideation, plan, or intent. Pt denies any thoughts of . Progress Toward Goals/Plan:: Pt continues to do well in IOP tx and she reports feeling more confident in her communication and boundaries with others. Pt reports feeling less anxious and more stable on a daily basis. Pt would like to continue IOP tx for two more weeks to reinforce healthy coping skills and establish aftercare. Pt will need outpatient therapy and she was given options in [place]. Pt plans to look into [facility] at [facility]. Time Stopped:: 12:05
--- NOTE | 2025-04-30 09:05 | BH.SGPN.GN ---
Behaviors/Verbalizations/Mental Status: [] Eye contact is good. Motor activity is appropriate. Appearance is casual. Speech is Appropriate. Mood is euthymic. Affect is full. Thoughts are linear and logical. No evidence of psychosis. Reviewed daily check in sheet and no reports of suicidal ideations or intent. Client Response/Progress/Benefit: [] Pt was an active participant in group discussions. Attentive. Able to identify mental health wins and healthy habits. ? My mood is better?. Reports significant improvement due to medications and IOP. Identified stressors and skills used this week. Progress noted. Benefited from group support, encouragement, and feedback. Will continue in IOP to maintain gains. Narrative Note: []
--- NOTE | 2025-04-30 10:10 | BH.SGPN.GN ---
Behaviors/Verbalizations/Mental Status: []Pt alert and oriented, casually dressed and groomed. Eye contact good. Motor activity appropriate. Speech within normal limits. Affect congruent, mood euthymic. Thoughts linear, logical, no signs of hallucinations or delusions. Client Response/Progress/Benefit: [] Pt participated during the group discussion, providing input and remaining attentive during psychoeducation. Participated in experiential activity. Pt contributed during interactive discussion on the consequences of unhealthy expression of emotions. Worked with group to identify several consequences which included hurting relationships and isolating oneself. Contributing during interactive discussion on common potholes to effectively communicating. Pt was able to relate and make connections between the experiential activity and the overall topic, managing emotions through activity by using calming skills and self-talk. Pt shared she has a hard time ?not being in control? which is why pt challenged herself with the role she picked. Benefited from increased awareness of how stress and emotions can impact one's ability to communicate. Will continue in IOP to promote use of healthy coping skills, reduce negative thinking patterns, and improve distress tolerance. Narrative Note: []
--- NOTE | 2025-04-30 14:02 | BH.MDN ---
Multi-Disciplinary Note Note 45-min Individual: Time Started:: 11:10 Date: 04/30/25 Purpose of session/treatment goals addressed:: To process any current stressors and plan for discharge from IOP next week. Eye Contact:: Good Motor Activity:: Appropriate Appearance:: Neat Speech:: Appropriate Mood:: Euthymic Affect:: Full Thoughts:: Linear, Logical and No evidence of hallucinations/delusions noted Staff Interventions:: thought challenging, discharge planning, strengths perspective and other (maintenance plan) Client Response:: Pt responded well to session, open to meeting with therapist. Pt shared she has been doing well since her last individual session, sharing she still feels good about the conversation she had with two of her friends. Pt stated since the conversation she has reflected on what it means to be a friend and the kind of people she wants in her life. Pt stated she wants to continue living according to her values and recognizes that this will help pt maintain mood stability and allow authentic living. Pt and therapist reviewed red flags that pt wants to be aware of when looking for romantic relationships and also in friendships. Pt shared she still thinks about her ex-boyfriend, but she is ruminating much less than when pt started IOP. Pt and therapist also discussed things pt can continue to do to maintain wellness and progress made in IOP. Discussed coping skills pt has used in IOP and wants to continue using including: crucial conversations, dialectical thinking, and thought challenging. Pt will continue working on her maintenance plan for homework. Risks/Concerns:: Pt denies any thoughts of or suicidal ideations. Progress Toward Goals/Plan:: Pt continues to make progress towards her tx goals and pt reports family and friends are noticing a difference in pt's mood and wellbeing since pt has been in IOP. Pt feels that she will be ready to discharge from IOP next week and was receptive to working on a maintenance plan. Pt is also interested in IOP aftercare group. Pt will continue IOP tx for one more week to establish outpatient therapy and reinforce healthy coping skills. Time Stopped:: 11:50
--- NOTE | 2025-05-01 09:05 | BH.SGPN.GN ---
Behaviors/Verbalizations/Mental Status: []Pt alert and oriented, casually dressed and groomed. Eye contact good. Motor activity appropriate. Speech within normal limits. Affect congruent, mood euthymic. Thoughts linear, logical, no signs of hallucinations or delusions. Reviewed pt?s symptom tracker, no risk for suicidal ideation, plan, or intent 05/01/25 Client Response/Progress/Benefit: []Pt was an active participant in group discussions. Attentive. Able to identify mental health wins including being able to challenge herself to? ?dive into more crucial conversations? with the people in her life and better advocate for her own needs. Additional win noted as being in an overall good mood and able to consistently apply skills she has been learning. Stressor noted as being told the fuel pump on her car needs replaced and weighing the pros/cons of doing so vs. getting a new car. Benefited from group support, encouragement, and feedback. Will continue in IOP to prevent decompensation, continue to gain healthy coping skills, and promote ongoing mood stability. Narrative Note: []
--- NOTE | 2025-05-01 10:05 | BH.SGPN.GN ---
Behaviors/Verbalizations/Mental Status: [] Eye contact is good. Motor activity is appropriate. Appearance is casual. Speech is Appropriate. Mood is euthymic. Affect is full. Thoughts are linear and logical. No evidence of psychosis. Client Response/Progress/Benefit: [] Client responded well to session, contributing to discussion and engaged during the activity. Attentive during interactive discussions and psychoeducation. Group identified the benefits of change as well as common emotions associated with change. Group identified several emotions associated with change (anxious, excited, overwhelmed, discouraged, torn, embarrassed, exhausted, cautious, and guilty) and discussed how these emotions can be both positive (motivate one to change) and also be an obstacle to change. Benefited from increased awareness and understanding of emotions, benefits, and barriers related to change. Will continue IOP to maintain gains. Narrative Note: []
--- NOTE | 2025-05-01 11:15 | BH.SGPN.GN ---
Behaviors/Verbalizations/Mental Status: []Client alert and oriented, casually dressed and groomed. Eye contact good. Motor activity appropriate. Speech within normal limits. Affect congruent, mood euthymic. Thoughts linear, logical, no signs of hallucinations or delusions Client Response/Progress/Benefit: [] Pt responded well to session, attentive. Did well to process activity and work with group to relate the strategies used to overcome barriers in the activity to managing change in own life. Pt identified a change they would like to make is maintaining progress made in IOP. Pt identified currently being in maintenance stage for this change. Pt stated goal is to reach out new providers to get an outpatient therapist. Appeared to benefit from identifying a small goal to work towards. Pt will continue IOP tx to promote mood stability and reinforce healthy coping skills. Narrative Note: []
--- NOTE | 2025-05-06 09:05 | BH.SGPN.GN ---
Behaviors/Verbalizations/Mental Status: [] Eye contact is good. Motor activity is appropriate. Appearance is casual. Speech is Appropriate. Mood is euthymic. Affect is full. Thoughts are linear and logical. No evidence of psychosis. Reviewed daily check in sheet and no reports of suicidal ideations or intent. Client Response/Progress/Benefit: [] Pt was an active participant in group discussions. Attentive during video on mindfulness and was able to make connections to her mental health. Provided appropriate feedback to peers. Overall continue to report ?getting better?. Discussed stressors and ruminations over the weekend, however, feels that she is getting back to her baseline. Progress noted. Benefited from group support, encouragement, and feedback. Will continue in IOP to maintain gains. Narrative Note: []
--- NOTE | 2025-05-06 10:10 | BH.SGPN.GN ---
Behaviors/Verbalizations/Mental Status: []Pt alert and oriented, casual appearance. Eye contact good. Motor activity appropriate. Speech within normal limits. Affect congruent, mood content. Thoughts linear, logical, no signs of hallucinations or delusions. Client Response/Progress/Benefit: [] Pt an active participant in group discussions on defining conflict (internal/external) and possible benefits to conflict. Attentive during psychoeducation on conflict styles (avoidant, accommodating, competing, cooperative) and engaged during group discussion in which peers identified the benefits and consequences to each conflict style. Pt connected with the different conflict styles. Stated she connects most with using passive communication. Able to make connections how current style impacts mental health. Benefited from increased awareness of the impact of conflict styles in mental health. Will continue in IOP tx to improve confidence, challenge distortions, and prevent decompensation.
--- NOTE | 2025-05-06 11:10 | BH.SGPN.GN ---
Behaviors/Verbalizations/Mental Status: []Client alert and oriented, casually dressed and groomed. Eye contact fair. Motor activity appropriate. Speech within normal limits. Affect congruent, mood euthymic. Thoughts linear, logical, no signs of hallucinations or delusions. Client Response/Progress/Benefit: [] Pt engaged in session AEB contributing to discussion and engaging in small group. Attentive during discussion on strategies for more effectively managing conflict in personal life. Pt noted current conflict resolution style uses the most is ?mostly collaborating now, but I used to be really accommodating.? Pt participated in small group for activity and did well practicing how to manage conflict scenarios. Pt given handout on conflict resolution skills and shared he wants to work on ?knowing when to take a break and using I-statements.? Appeared to benefit from gaining strategies to help Pt better manage conflict. Will continue IOP tx reinforce healthy coping skills and establish aftercare. Narrative Note: []
--- NOTE | 2025-05-07 13:21 | BH.DS ---
Discharge Summary Demographics Date of Admission:: 03/27/25 Discharge Date: 05/08/25 Presenting Problems at Admission:: Pt is a 29-year-old female with a history of depression and anxiety who found [facility] online. Pt presents to [facility] due to a major breakdown pt had following numerous psychosocial stressors noted above. Pt endorses a depressed mood, low motivation, crying spells, racing thoughts, hopelessness, thoughts of , and feeling alone. Pt also notes low energy and issues with concentration and appetite. Pt's symptoms are impacting her ability to get out of bed and function at her baseline. Discharge Diagnoses:: MDD, recurrent, moderate F33.1 Reason for Discharge:: Pt has accomplished her tx goals AEB her reduction of DMS-5 symptoms, self-report of improved functioning and mood, and improved outlook. Pt no longer meets criteria for [facility] level of care and will discharge to outpatient counseling. Treatment Progress During Treatment & Response: Pt has responded well to treatment as evidenced by Pt consistently attending IOP sessions and her reduction of DSM-5 scores since admission. Pt was always attentive and receptive to learning during group and individual sessions. Pt actively applied coping skills outside of [facility] and reports overall her mood is improved and she is functioning better than she was several months ago. Pt?s overall symptom reduction is 83% since admission with anger decreasing by 67%, depression decreasing by 83%, and anxiety decreasing by 86%. Pt has increased self-compassion and faced many hard things. Most importantly, Pt has become more vulnerable, flexible, and confident in her abilities in having crucial conversations. Issues Still to be Addressed:: Acceptance skills, interpersonal effectiveness skills, and maintenance skills to help with anxiety and depression. Discharge Recommendations/Instructions:: Pt was given information for psychiatric providers, but at t his time pt would like to follow up with her PCP, Dr. Carrasco at [facility], for medication management. Pt declined to join [facility] aftercare at this time due to work schedule. Pt plans to follow up with Mariela Weiner at [facility] for individual therapy. Discharge Handout
--- NOTE | 2025-05-07 15:14 | BH.DS_ITS ---
Aftercare Plan Demographics Treatment End Date:: 05/08/25 Psychiatrist:: Cyndie Gillespie Psychiatrist Office #:: [id number] [facility]/I[facility] Therapist:: Carolee Palomares Therapist Phone #:: [phone] Medications Home Medications carbamazepine 400 mg tablet,extended release,12 hr 400 mg PO BID 12/10/16 spironolactone 100 mg tablet (Aldactone) 100 mg PO DAILY 03/27/25 sertraline 25 mg tablet (Zoloft) 25 mg PO DAILY 30 days #30 tabs 04/17/25 Plan Details Progress/Aftercare Plan Details:: Sandra has responded well to treatment as evide nced by Sandra consistently attending IOP sessions and her reduction of DSM-5 scores since admission. Sandra was always attentive and receptive to learning during group and individual sessions. Sandra actively applied coping skills outside of IOP and reports overall her mood is improved and she is functioning better than she was several months ago. Sandra?s overall symptom reduction is 83% since admission with anger decreasing by 67%, depression decreasing by 83%, and anxiety decreasing by 86%. Sandra has increased self-compassion and faced many hard things. Most importantly, Sandra has become more vulnerable, flexible, and confident in her abilities in having crucial conversations. Strategies for Success:: 1. Opposite action! Continue to break that cycle of anxiety and depression by not letting emotions be the only drivers of your bus. 2. Remember that thoughts are thoughts NOT facts! You have power in if you give thoughts the time of day or not. 3. self-care! You deserve to take time for you and you also deserve to face the not so fun self-care like having crucial conversations 4. Self-compassion! You are human and you will make a mistake?BUT that doesn?t mean you are a failure or not good enough. Remember there are no bad parts! 5. Continue to practice acceptance and remember that your values and needs matter 6. Practice positive self-talk and keep track of your wins. 7. Remember progress isn?t linear! You may have a setback or bump in the road, but that doesn?t mean you?ve lost all progress. 8. self-reflection and self-awareness. 9. Be understanding with yourself and try to see the whole picture, not just the snapshot. 10. Live in the godinez!! Appointments Appointments/Referrals to Other Services:: 1. Mariela Weiner at [facility] for individual counseling [phone] Carrasco for medication management.
--- NOTE | 2025-05-08 09:05 | BH.SGPN.GN ---
Behaviors/Verbalizations/Mental Status: [] Eye contact is good. Motor activity is appropriate. Appearance is casual. Speech is Appropriate. Mood is euthymic. Affect is full. Thoughts are linear and logical. No evidence of psychosis. Reviewed daily check in sheet and no reports of suicidal ideations or intent. Client Response/Progress/Benefit: [] Pt was an active participant in group discussions. Attentive. Daily symptom tracker notes 09/22 for depression. Able to identify mental health wins and healthy habits. Shared that today is her last day in [facility]. Set to discharge successfully. States that she ? got what I wanted? from IOP. Feeling ?content? today. According to pt she benefited from education individual counseling and group support. Also believes that medications were very helpful as well. Progress noted. Benefited from group support, encouragement, and feedback. Will be discharged from [facility] today. Narrative Note: []
--- NOTE | 2025-05-08 10:10 | BH.SGPN.GN ---
Behaviors/Verbalizations/Mental Status: [] Eye contact is good. Motor activity is appropriate. Appearance is casual. Speech is Appropriate. Mood is euthymic. Affect is congruent. Thoughts are linear and logical. No evidence of psychosis. Client Response/Progress/Benefit: [] Pt engaged in session AEB listening attentively to others and providing input throughout. Pt engaged in activity, able to connect how it can be uncomfortable and difficult to practice acceptance when situations are out of one?s own control. Identified what they are struggling to accept in personal life. Worked with peer group to define acceptance and identify the benefits that acceptance can bring. Benefits included; reduce stuckness, reduced stress, helps one to focus on situations we can change, and decreased negative self-talk. Seemed to benefit from increased awareness of the meaning as well as the importance of acceptance. Will continue in IOP to improve confidence, challenge negative thoughts, and prevent decompensation.
--- NOTE | 2025-05-08 11:15 | BH.SGPN.GN ---
Behaviors/Verbalizations/Mental Status: []Pt alert and oriented, casually dressed and groomed. Eye contact good. Motor activity appropriate. Speech within normal limits. Affect congruent, mood content. Thoughts linear, logical, no signs of hallucinations or delusions. Client Response/Progress/Benefit: [] Pt responded well to session AEB taking notes and contributing to discussion throughout. Pt engaged as group continued discussion on acceptance and the mental health benefits of practicing acceptance. Pt and peers identified what makes acceptance challenging and pt completed a self-reflection exercise on what is hard to accept in pt's life. Pt identified something that is currently hard to accept as friendships ending. Client stated by not accepting this it leads to anxiety and stress. Group identified strategies to increase acceptance. Pt noted wanting to work on trying to find new connections as a strategy for improving acceptance in this area. Pt appeared to benefit from gaining insight and learning strategies to increase acceptance. Pt will continue outpt counseling to maintain gains and prevent decompensation. Narrative Note: []
--- NOTE | 2025-05-08 13:39 | BH.MDN_ITS ---
Multi-Disciplinary Note Note 45-min Individual: Time Started:: 10:15 Date: 05/08/25 Purpose of session/treatment goals addressed:: To discuss progress made, review maintenance plan, and discuss aftercare. Eye Contact:: Good Motor Activity:: Appropriate Appearance:: Neat Speech:: Appropriate Mood:: Euthymic Affect:: Full Thoughts:: Linear, Logical and No evidence of hallucinations/delusions noted Staff Interventions:: discharge planning, strengths perspective and other (reviewed maintenance plan) Client Response:: Pt responded well to session, open to meeting with therapist. Pt reports feeling confident and shared that she has been using healthy coping skills pretty consistently. Pt continues to feel like her moods are more stable and pt feels more capable in managing stressful situations. Pt completed her maintenance plan and identified potential triggers, warning signs, and coping skills for depression and anxiety. Pt recognizes that moving forward it will be helpful to take a day off each week from work and to continue practi cing other self-care routines. Pt also noted that her medication is helpful and she wants to continue taking that each day. Pt feels she will benefit from weekly counseling and she plans to reach out to a counselor next week. Pt also noted that she has gained a lot of confidence in having crucial conversations with people and expressing her needs instead of people pleasing. Pt feels ready to discharge from IOP tx. Risks/Concerns:: Pt denies any suicidal ideation, plan, or intent. Pt denies any thoughts of . Progress Toward Goals/Plan:: Pt will discharge from IOP tx today as pt has made significant progress in reducing DSM-5 scores and improving daily functioning. Pt plans to follow up with her PCP for medication management and pt plans to call Mariela Weiner next week for individual counseling. Time Stopped:: 11:05
== END 2025-05-08 12:00 | disposition home or self-care (01) ==
LOC: BHIOP 07:50
PROVIDERS: Referring Provider Internal Medicine; Visit Provider Internal Medicine
DX: F33.1 Major depressive disorder, recurrent, moderate (principal)
CPT/HCPCS: S9480; 90834; 90853

== ENCOUNTER → 2025-05-27 | Outpatient (CLI) | payer OTHER, SELFPAY ==
[2025-05-27 15:17] LABS: Hematocrit 42.0 % (37-47); Hemoglobin 14.1 g/dL (12.0-15.0); Immature Granulocytes Count 0.040 X10^3/uL (0.0-0.0); Mean Corp Hgb Conc 33.6 g/dL (32-36); Mean Corpuscular Volume 94.2 fL (81-99); Mean Platelet Vol. 9.1 fl (6.2-12.0); NRBC Flagged by Analyzer 0 % (0-5); Platelet Count 294 K/mm3 (150-450); RBC Distribution Width CV 12.2 % (11.6-14.6); RBC Distribution Width SD 42.5 fl (35.1-43.9); Red Blood Count 4.46 M/mm3 (4.2-5.4); White Blood Count 7.2 K/mm3 (4.4-11.0)
[2025-05-27 17:55] LABS: AST(SGOT) 20 U/L (<=31); Alanine Aminotransfer ALT/SGPT 17 U/L (<=34); Albumin, Serum 4.4 g/dL (3.5-5.0); Alkaline Phosphatase 50 U/L (35-104); Anion Gap 11 (5-15); BUN 18 mg/dL (4-19); BUN/Creat Ratio 25.6 RATIO (10-20); Calcium,Total 8.8 mg/dL (7.6-11.0); Carbon Dioxide 25.1 mmol/L (21.0-32.0); Chloride 100 mmol/L (98-108); Globulin 2.3 g/dL (2.2-4.2); Glucose 87 mg/dL (70-99); Potassium 4.0 mmol/L (3.3-5.1)
== END | disposition home or self-care (01) ==
LOC: LAB 14:24
DX: Z00.00 Encounter for general adult medical examination without abnormal findings (principal)
CPT/HCPCS: 36415; 80053; 84443; 85025

== ENCOUNTER → 2025-06-27 | Outpatient (CLI) | payer OTHER, SELFPAY ==
[2025-06-27 13:55] LABS: Carbamazepine (Tegretol) 9.3 ug/mL (4.0-12.0)
[2025-06-27 14:11] LABS: Ammonia 30.7 umol/L (11-51)
== END | disposition home or self-care (01) ==
LOC: LAB 13:07
PROVIDERS: Referring Provider Psychiatry & Neurology Neurology; Visit Provider Psychiatry & Neurology Neurology
DX: G40.909 Epilepsy, unspecified, not intractable, without status epilepticus (principal); G43.109 Migraine with aura, not intractable, without status migrainosus
CPT/HCPCS: 36415; 80156; 82140

== ENCOUNTER 2025-08-21 18:29 | Emergency (ER) | payer OTHER, SELFPAY ==
[2025-08-21 18:30] VITALS: BP 114/72; PULSE 62; RESP 16; TEMP 36.4; O2SAT 100; BMI 24.2
--- NOTE | 2025-08-21 18:52 | RAD_ITS ---
PROCEDURE: LEFT ELBOW MIN 3 VIEWS; FOREARM 2 VIEWS 08/21/2025 REASON FOR EXAM: KICKED BY COW TECHNIQUE: Procedure Code: SATHISH DE [place]ANTOS Modality: DX Procedure: ELBOW MIN 3 VIEWS; FOREARM 2 VIEWS Laterality: Left COMPARISON: None. FINDINGS: No acute fracture or dislocation. Alignment is anatomic. Preserved visualized joint spaces. No elbow joint effusion. No marked soft tissue swelling or radiopaque foreign body. RAD/Elbow min 3 Views IMPRESSION: No acute fracture or dislocation. Reading Location: [id number]
--- NOTE | 2025-08-21 19:00 | RAD_ITS ---
PROCEDURE: LEFT ELBOW MIN 3 VIEWS; FOREARM 2 VIEWS 08/21/2025 REASON FOR EXAM: KICKED BY COW TECHNIQUE: Procedure Code: SATHISH DE [place] Modality: DX Procedure: ELBOW MIN 3 VIEWS; FOREARM 2 VIEWS Laterality: Left COMPARISON: None. FINDINGS: No acute fracture or dislocation. Alignment is anatomic. Preserved visualized joint spaces. No elbow joint effusion. No marked soft tissue swelling or radiopaque foreign body. RAD/Forearm 2 Views IMPRESSION: No acute fracture or dislocation. Reading Location: [id number]
--- NOTE | 2025-08-21 19:02 | EDS_ITS ---
HPI History of Present Illness Chief Complaint: Upper Extremity Injury Narrative Narrative: Patient is a 30-year-old female with past medical history of seizures who presents to the emergency department the chief complaint of left arm pain. Patient states that earlier today she was kicked by a cow in her left arm and her arm slammed against a metal bar and ever since then she has had pain. [facility] Medical History Contact with or exposure to other viral diseases Impacted cerumen of both ears Seizures Home Medications ?Medication ?Instructions ?Recorded ?Last Taken ?Type carbamazepine 400 mg 400 mg PO BID 12/10/16 Unkno wn History tablet,extended release,12 hr spironolactone 100 mg tablet 100 mg PO DAILY 03/27/25 Unknown History (Aldactone) sertraline 25 mg tablet (Zoloft) 50 mg PO DAILY Unknown History Allergy/AdvReac Type Severity Reaction Status Date / Time No Known Allergies Allergy Verified 08/21/25 18:31 Family History Mother Blood clot in leg Father In good health Other Breast cancer CVA (cerebral vascular accident) Cancer Cervical cancer Diabetes Heart disease Surgical History History of tonsillectomy Social History household members: none housing: house current occupational status: employed 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 Smoking Status: Never smoker alcohol intake: current alcohol intake frequency: a few times a week Alcohol type: other details: Abhi substance use type: does not use eating out: rarely or never what type of physical activity do you participate in: weight training seatbelt use: always do you feel safe at home: Yes additional social history: DOES USE ASPIRIN DOES USE IBUPROFEN ROS ROS ED ROS Narrative Neurological: Denies any numbness or tingling Musculoskeletal: Complains of left arm pain as noted above Skin: Denies any rashes or lesions EXAM Physical Exam Narrative Exam Narrative: General: Patient is lying in bed rest comfortably did not appear to be in acute distress Head: Atraumatic, normocephalic Eyes: PERRL bilaterally, EOMI bilaterally, no conjunctival injection noted Neck: Soft, supple, trachea midline Cardiovascular: Regular rate and rhythm Musculoskeletal: Compartments soft and compressible in the left forearm, tenderness palpation over the left mid forearm and proximally near her elbow patient has full range of motion of her elbow joint Extremities: Radial pulses +2/4 in the left upper extremity, +5/5 strength in the bilateral lower extremities Neurological: Patient follow commands that she was at [facility] years 2024 sensation grossly intact in the median ulnar and radial nerve distribution bilaterally Skin: Warm, dry, intact no rashes or lesions noted Const Vital Signs: 08/21/25 18:30 Temperature 97.6 F L Temperature Source Temporal Pulse Rate 62 Respiratory Rate 16 Blood Pressure 114/72 Blood Pressure Mean 86 Pulse Ox 100 Oxygen Delivery Method Room Air MDM MDM MDM Narrative Medical decision making narrative: Patient is a 30-year-old female who presented to the emergency department the chief complaint of left arm pain after being kicked by a cow earlier today. On the differential diagnose includes but not limited to musculoskeletal contusion, radial fracture, ulnar fracture, supracondylar humerus fracture although low suspicion for this. Patient be given IM Toradol she states that she just got off her menstrual cycle. Patient x-ray of forearm reviewed from some by radiology showed no acute fracture or dislocation. Patient x-ray of her elbow reviewed by myself by radiology showed no acute fracture or dislocation no posterior fat pad sign. I discussed the results with the patient she would like to go home at this point time. She is advised to rotate Tylenol and ibuprofen [id number] follow-up with her doctor in outpatient setting and return with worsening symptoms or other concerns. She is agreeable this plan all question concerns answered she was discharged home in stable condition Discharge Plan Triage Chief Complaint: Upper Extremity Injury ED Provider: Aguilar Maurer Dx/Rx/DC Orders Clinical Impression: Left forearm pain, Left elbow pain, Contusion of muscle Prescriptions: No Action sertraline [Zoloft] 25 mg tablet 50 mg PO DAILY carbamazepine 400 MG tablet extended release 12 hr 400 mg PO BID Patient Comments: spironolactone [Aldactone] 100 mg tablet 100 mg PO DAILY Stand Alone Forms: ED Work / School Excuse Primary Care Provider: Rosalva Dumont Referrals: Rosalva Dumont, [facility] [Primary Care Provider, Family Practice] Activity Restrictions/Additional Instructions: Follow-up with your doctor in the outpatient setting. Your x-rays did not show any broken bones. Rotate Tylenol and ibuprofen [id number] when you do this you can take something every 3 hours for pain max dose Tylenol in 24 hours 4000 mg max dose of ibuprofen in 24 hours 3200 mg. Print Language: Tajik Disposition Disposition: Home, Self Care
[2025-08-21] MEDS: Ketorolac 30 MG/ML Syringe IM (19:06)
--- OUTSIDE RECORDS SUMMARY | 2025-08-21 19:18 | XMS RPT_ITS | CCD ---
Author Organization [facility] Care Team Providers Care Criminal Analyst Name Role Phone Tawny Piña Unavailable Unavailable Sina Turpin Unavailable Tawny Piña Unavailable Unavailable Jose Gary Unavailable Ehsan Price Unavailable Jose Gary Primary Care Provider Dr. Jose Gary Primary Care Provider Dr. Jose Gary Referring Provider Suraj HARTLEY, NAEEM Nava Attending Provider [phone] MARLEN HECK Attending Unavailable GENERIC PROVIDER, NO ASSIGNED PCP Primary Care Unavailable GENERIC PROVIDER, NO ASSIGNED PCP Primary Care Unavailable BRITTNI PARADA Attending Unavailable JOSE LINARES Referring Unavailable Unavailable Primary Care Provider UnavailTOPHER Olson Attending Unavailable Jose Gary MD Primary Care Provider Generic Provider MD, No Assigned Pcp Primary Car e Provider Unavailable Jose Gary MD Unavailable [phone] Marlen Heck MD Unavailable [phone] MARLEN HECK Attending Unavailable GENERIC PROVIDER, NO ASSIGNED PCP Primary Care Unavailable TOPHER MURRY Attending Unavailable GENERIC PROVIDER, NO ASSIGNED PCP Primary Care Unavailable TOPHER MURRY Attending Unavailable GENERIC PROVIDER, NO ASSIGNED PCP Primary Care Unavailable Cyndie Gillespie Attending Unavailable Beam VSC, Zebulun Primary Care Unavailable Cyndie Gillespie Referring Unavailable Beam VSC, Zebulun Primary Care Unavailable Cyndie Gillespie Attending Unavailable Cyndie Gillespie Referring Unavailable Beam VSC, Zebulun Attending Unavailable Beam VSC, Zebulun Referring Unavailable Beam VSC, Zebulun Primary Care Unavailable Beam VSC, Zebulun Primary Care Unavailable Jonas Talbot Attending Unavailable Jonas Talbot Referring Unavailable Beam VSC, Zebudeen Referring Unavailable Beam VSC, Zebulun Primary Care Unavailable Jonas Talbot Attending Unavailable Radha Brito Attending Unavailable Beam VSC, Zebulun Referring Unavailable Beam VSC, Zebulun Primary Care Unavailable Gillespie, Cyndie Consulting Unavailable Beam VSC, Zebulun Primary Care Unavailable Gillespie, Cyndie Attending Unavailable Gillespie, Cyndie Referring Unavailable Gillespie, Cyndie Consulting Unavailable Beam VSC, Zebulun Primary Care Unavailable Gillespie, Cyndie Attending Unavailable Gillespie, Cyndie Referring Unavailable Beam VSC, Zebulun Primary Care Unavailable William Aguayo Attending Unavailable Beam VSC, Zebulun Referring Unavailable Beam VSC, Zebulun Primary Care Unavailable Beam VSC, Zebulun Attending Unavailable Medications Current Medications Medication Drug Class(es) Dates Sig (Normalized) Sig (Original) amoxicillin 875 mg / clavulanate 125 mg oral tablet (1 source) Penicillin-class Antibacterial Start: 08-20-2021 End: 08-29-2021 take 1 tablet by mouth twice daily at mealtime amoxicillin-clavul anate 875 mg-125 mg oral tablet ; 875 milligram(s) orally 2 times a day Quantity: 20 Refills: 0 Ordered: 20-Aug-2021 Ehsan Price Start: 20-Aug-2021 End: 29-Aug-2021 Generic Substitution Allowed Comments: Finish all this medication unless otherwise directed by prescriber.Take with food or milk. Comment on above: Finish all this medi cation unless otherwise directed by prescriber.Take with food or milk. azithromycin 250 mg oral tablet (2 sources) Macrolide Antimicrobial Start: 06-17-2022 Azithromycin Active 0 PO .COMPLEX June 16, 2022 11:00pm take 500 mg today (day 1), then 250 mg for 4 days (days 2-5) PO Start: 11-21-2020 take 6 tablets by mouth once Z ithromax Z-Milind 250 mg oral tablet ; as directed on package Quantity: 1 Refills: 0 Ordered: 21-Nov-2020 Ehsan Price Start: 21-Nov-2020 Status: Completed Generic Substitution Allowed Comments: Do not take dairy products, antacids, or iron preparations within one hour of this medication.Finish all this medication unless otherwise directed by prescriber. Comment on above: Do not take dairy pr oducts, antacids, or iron preparations within one hour of this medication.Finish all this medication unless otherwise directed by prescriber. benoxinate hydrochloride 4 mg/ml / fluorescein sodium 2.5 mg/ml ophthalmic solution (1 source) Diagnostic Dye Start: 03-19-20 End: 03-19-20 fluorescein-benoxi otto 0.25-0.4 % 1 Drop (FLURESS) benzonatate 100 mg oral capsule (1 source) Non-narcotic Antitussive Start: 06-17-20 take 200 mg by mouth three times daily Benzonatate Active 200 MG PO THREE TIMES A DAY June 16, 2022 11:00pm biotin 2.5 mg oral capsule (1 source) Start: 10-06-19 take 2500 ug by mouth once daily Biotin Active 2500 MCG PO DAILY October 06, 2017 12:00am 2 ml dupilumab 150 mg/ml auto-injector (4 sources) Interleukin-4 Receptor alpha Antagonist Start: 03-20-20 23 DUPIXENT PEN 300 mg/2 mL pen 03/20/2023 Active dupilumab (Dupix ent) 300 MG/2ML injection Inject 300 mg under the skin every 14 (fourteen) days. Active iv contrast (will be provide d with radiology test) (2 sources) Start: 10-16-2020 iv contrast (w ill be provided with radiology test) MRI Female Pelvis Inject, intravenously, once for 1 dose. No IV access, insert saline lock prior to the beginning of sedation, infusion, injection of imaging exam. Discontinue saline lock post exam. If Pt has a central line or IVAD, may access for administration according to line specific nursing protocol. Once exam is complete flush line and de-access according to line specific nursing protocol in the MR contrast administration guidelines link. 1 Each 10/16/2020 Active Start: 10-16-2020 iv contrast (w ill be provided with radiology test) MRI Female Pelvis Inject, intravenously, once for 1 dose. No IV access, insert saline lock prior to the beginning of sedation, infusion, injection of imaging exam. Discontinue saline lock post exam. If Pt has a central line or IVAD, may access for administration according to line specific nursing protocol. Once exam is complete flush line and de-access according to line specific nursing protocol in the MR contrast administration guidelines link. 1 Each 0 10/16/2020 Active Comment on above: MRI Female Pelvis In ject, intravenously, once for 1 dose. No IV access, insert saline lock prior to the beginning of sedation, infusion, injection of imaging exam. Discontinue saline lock post exam. If Pt has a central line or IVAD, may access for administration according to line specific nursing protocol. Once exam is complete flush line and de-access according to line specific nursing protocol in the MR contrast administration guidelines link. multivitamin capsule (1 source) Start: 018 take 1 capsule by mouth once daily in the morning multivitamin capsule Active 1 CAP PO EVERY MORNING October 06, 2017 12:00am ofloxacin 3 mg/ml ophthalmic solution (1 source) Quinolone Antimicrobial Start: End: take 1 drop(s) into the eye(s) four times daily ofloxacin (OCUFLOX) 0.3 % ophthalmic solution Use 1 Drop in the right eye four times daily for 7 days. 5 mL 0 03/19/2022 03/26/2022 Active Comment on above: Use 1 Drop in the ri ght eye four times daily for 7 days. sertraline 25 mg oral tablet (3 sources) Serotonin Reuptake Inhibitor take 1 tablet by mouth once daily sertraline (Zoloft) 25 mg tablet Take 1 tablet (25 mg) by mouth once daily. Active spironolactone 50 mg oral tablet (16 sources) Aldosterone Antagonist Start: 024 spironolactone (Aldactone) 50 MG tablet Take 1 tablet every morning and 2 tablets every night with a full glass of water. 04/18/2024 Active Start: 10-06-2017 take 100 mg by mouth once daily in the morning Spironolactone Active 100 MG PO EVERY MORNING October 06, 2017 12:00am Start: 03-14-2017 ALDACTONE TABS as directed SPIRONOLACTONE TABS [id number] Tawny Piña Start: 03-14-2017 ALDACTONE TABS as directed SPIRONOLACTONE TABS [id number] Tawny Piña take 1 tablet by zoila th once daily spironolactone (Aldactone) 100 mg tablet Take 1 tablet (100 mg) by mouth once daily. Active take 1.5 tablets by mouth once daily spironolactone (Aldactone) 100 MG tablet take 1.5 tablets Orally Once a day for 30 day(s) Active take 1 tablet by zoila th twice daily spironolactone 25 mg oral tablet ; 1 tab(s) orally 2 times a day Quantity: 0 Refills: 0 Ordered: 13-Aug-2019 Selene Morales Status: Completed Generic Substitution Allowed Comment on above: Take 100 mg by mouth once daily. Surgical Lubricant Jelly gel (2 sources) Start: 10-16-2020 Surgical Lubricant Jelly gel For MRI FEMALE PELVIS WO/W IVCON order Up to 15cc intra-vaginal Surgilube (to patient tolerance). 5 g 10/16/2020 Active Start: 10-16-2020 Surgical Lubri cant Jelly gel For MRI FEMALE PELVIS WO/W IVCON order Up to 15cc intra-vaginal Surgilube (to patient tolerance). 5 g 0 10/16/2020 Active Comment on above: For MRI FEMALE PELVI S WO/W IVCON order Up to 15cc intra-vaginal Surgilube (to patient tolerance). tropicamide 5 mg/ml ophthalmic solution (2 sources) Anticholinergic Start: 08-01-2024 End: 08-02-2024 tropicamide 0.5 % 1 Drop (MYDRIACYL) Start: 08-01-2024 End: 08-02-2024 1 Drop, BOTH EYES, DIRECT ED, Starting on Mon08/01/24 at 1330, Until Mon08/02/24 at 0129, Administer for dilation Completed/Discontinued Medications Medication Drug Class(es) Dates Sig (Normalized) Sig (Original) adapalene 0.003 mg/mg topical gel (8 sources) Retinoid Start: 02-08-2011 End: 03-14-2017 DIFFERIN 0.3 % GEL ADAPALENE [id number] Radha Jones Start: 02-08-2011 DIFFERIN 0.3 % GEL ADAPALENE [id number] Radha Jones Start: 02-08-2011 End: 03-14-2017 DIFFERIN 0.3 % GEL 4 ADRIEN [id number] Tawny Piña amoxicillin 500 mg oral capsule (1 source) Penicillin-class Antibacterial Start: 11-14-2020 End: 11-23-2020 take 1 capsule by mouth twice daily amoxicillin 500 mg oral capsule ; 1 cap(s) orally 2 times a day Quantity: 20 Refills: 0 Ordered: 14-Nov-2020 Arelis Braga Start: 14-Nov-2020 End: 23-Nov-2020 Status: Completed Generic Substitution Allowed Comments: Finish all this medication unless otherwise directed by prescriber. Comment on above: Finish all this medi cation unless otherwise directed by prescriber. BENZOYL PEROXIDE LIQD (8 sources) End: 03-14-2017 PANOXYL LIQD BENZOYL PEROXIDE LIQD [id number] Tawny Piña End: 03-14-2017 PANOXYL LIQD JIHAN OYL PEROXIDE LIQD [id number] Tawny Piña PANOXYL LIQD TANYA ZOYL PEROXIDE LIQD [id number] Odell Moody DO 12 hr carBAMazepine 400 mg extended release oral tablet (16 sources) Mood Stabilizer, Anti-epileptic Agent Start: 03-14-2017 CARBAMAZEPINE TABS as directed CARBAMAZEPINE TABS [id number] Tawny Piña Start: 03-14-2017 CARBAMAZEPINE TABS as directed CARBAMAZEPINE TABS [id number] Tawny Piña Start: 06-18-2015 End: 08-04-2024 take 1 tablet by mouth in the morning, then take 1 tablet by mouth every twelve hours at bedtime carBAMazepine XR (TEGretol XR) 400 MG 12 hr tablet Indications: Nonintractable generalized idiopathic epilepsy without status epilepticus (CMS/HCC) Take 1 tablet (400 mg) by mouth in the morning and 1 tablet (400 mg) before bedtime. 180 tablet 03/22/2024 05/06/2024 Discontinued (Reorder) take 1 tablet by zoila th twice daily carBAMazepine 100 mg oral tablet, extended release ; 1 tab(s) orally 2 times a day Quantity: 0 Refills: 0 Ordered: 13-Aug-2019 Selene Morales Generic Substitution Allowed Comment on above: Take 400 mg by mouth twice daily. CELECOXIB CAPS (8 sources) Nonsteroidal Anti-inflammatory Drug Start: 02-08-2011 End: 09-15-2011 CELEBREX CAPS CELECOXIB CAPS [id number] Odell Wallsmudez DO Start: 02-08-2011 CELEBREX CAPS CELECOXIB CAPS [id number] Radha Jones Start: 02-08-2011 End: 09-15-2011 CELEBREX CAPS 201 09/29/28 CELECOXIB CAPS [id number] Odell D Moody DO Start: 02-08-2011 CELEBREX CAPS CELECOXIB CAPS [id number] Radha Jones cephalexin 500 mg oral capsule (1 source) Cephalosporin Antibacterial Start: 02-17-2018 End: 07-12-2018 take 1 capsule by mouth twice daily Cephalexin (Keflex) 500 mg capsule Discontinued 500 MG PO TWICE A DAY February 16, 2018 11:00pm July 12, 2018 2:56pm clindamycin 10 mg/ml topical lotion (8 sources) Lincosamide Antibacterial End: 03-14-2017 CLEOCIN-T 1 % LOTN CLINDAMYCIN PHOSPHATE [id number] Tawny Piña End: 03-14-2017 CLEOCIN-T 1 % LOTN 7 CLINDAMYCIN PHOSPHATE [id number] Tawny Piña CLEOCIN-T 1 % LO TN CLINDAMYCIN PHOSPHATE [id number] Odell Moody DO doxycycline monohydrate 50 mg oral capsule (14 sources) Tetracycline-class Drug Start: 10-06-2017 End: 07-12-2018 take 50 mg by mouth once Doxycycline Monohydrate Discontinued 50 MG PO ONCE October 06, 2017 12:00am July 12, 2018 2:56pm Start: 03-14-2017 DOXYCYCLINE HY CLATE TABS as directed DOXYCYCLINE HYCLATE TABS [id number] Tawny Piña Start: 03-14-2017 DOXYCYCLINE HY CLATE TABS as directed DOXYCYCLINE HYCLATE TABS [id number] Tawny Piña take 1 tablet by zoila th every twelve hours doxycycline 20 mg oral tablet ; 1 tab(s) orally every 12 hours Quantity: 0 Refills: 0 Ordered: 13-Aug-2019 Selene Morales Status: Completed Generic Substitution Allowed End: 07-26-2011 DOXYCYCLINE HYCLATE CAPS 201 09/28/07 DOXYCYCLINE HYCLATE CAPS [id number] Odell D Moody DO End: 07-26-2011 DOXYCYCLINE HYCLATE CAPS 201 09/28/07 DOXYCYCLINE HYCLATE CAPS [id number] Odell D Moody DO DOXYCYCLINE HYCL ATE CAPS DOXYCYCLINE HYCLATE CAPS [id number] Odell D Moody DO hydrocortisone 10 mg/ml / neomycin 3.5 mg/ml / polymyxin b 78927 unt/ml otic solution (2 sources) Aminoglycoside Antibacterial, Polymyxin-class Antibacterial, Corticosteroid Start: 05-20-2021 End: 05-26-2021 neomycin/polymyxin B/hydrocortisone 0.35%-10,000 units/mL-1% otic solution ; 2 drop(s) in each affected ear 4 times a day Quantity: 1 Refills: 0 Ordered: 20-May-2021 Arelis Braga Start: 20-May-2021 End: 26-May-2021 Status: Completed Generic Substitution Allowed Comments: For the ear. Start: 05-01-2020 End: 05-07-2020 neomycin/polymyxin B/hydroco rtisone 0.35%-10,000 units/mL-1% otic solution ; 2 drop(s) in each affected ear 4 times a day Quantity: 1 Refills: 0 Ordered: 01-May-2020 Arelis Braga Start: 01-May-2020 End: 07-May-2020 Status: Completed Generic Substitution Allowed Comments: For the ear. Comment on above: For the ear. lactobacillus (4 sources) Start: 03-14-2017 BIOTINEX CAPS as directed LACTOBACILLUS [id number] Tawny Piña Start: 03-14-2017 BIOTINEX CAPS as directed LACTOBACILLUS [id number] Tawny Piña LINOLEIC ACID-SUNFLOWER OIL CAPS (1 source) Start: 03-14-2017 CLA CAPS as di rected LINOLEIC ACID-SUNFLOWER OIL CAPS [id number] Tawny Piña LINOLEIC ACID-SUNFLOWER OIL CAPS (3 sources) Start: 03-14-2017 CLA CAPS as di rected LINOLEIC ACID-SUNFLOWER OIL CAPS [id number] Tawny Piña Start: 03-14-2017 CLA CAPS as di rected LINOLEIC ACID-SUNFLOWER OIL CAPS [id number] Tawny Piña MULTIPLE VITAMIN (1 source) Start: 03-14-2017 MULTI VITAMIN TABS as directed MULTIPLE VITAMIN [id number] Tawny Piña multivitamin (3 sources) Start: 03-14-2017 MULTI VITAMIN TABS as directed MULTIPLE VITAMIN [id number] Tawny Piña Start: 03-14-2017 MULTI VITAMIN TABS as directed MULTIPLE VITAMIN [id number] Tawny Piña NORETHIN-ETH ESTRAD TRIPHASI C TABS (1 source) Start: 03-14-2017 PARIS TABS as directed NORETHIN-ETH ESTRAD TRIPHASIC TABS [id number] Tawny Piña NORETHIN-ETH ESTRAD TRIPHASI C TABS (3 sources) Start: 03-14-2017 PARIS TABS as directed NORETHIN-ETH ESTRAD TRIPHASIC TABS [id number] Tawny Piña Start: 03-14-2017 PARIS TABS as directed NORETHIN-ETH ESTRAD TRIPHASIC TABS [id number] Tawny Piña Problems Active Problems Problem Classification Problem Date Documented Date Episodic/Chronic Abdominal pain (1 source) Pain in pelvis; Translations: [Pelvic and perineal pain] 11-10-2022 Episodic Acute bronchitis (1 source) Acute bronchitis; Translations: [Acute bronchitis, unspecified] 06-17-2022 Episodic Blindness and vision defects (6 sources) Myopia; Translations: [Myopia, unspecified eye] Onset: 07-21-2015 07-21-2015 Episodic Cancer of cervix (4 sources) Low grade squamous intraepithelial lesion on cervical Papanicolaou smear; Translations: [Low grade squamous intraepithelial lesion on cytologic smear of cervix (LGSIL)] Onset: 06-03-2025 05-20-2025 Episodic Endometriosis (1 source) Endometriosis (clinical); Translations: [Endometriosis, unspecified] 11-10-2022 Chronic Epilepsy; convulsions (6 sources) Idiopathic generalized epilepsy; Translations: [Generalized idiopathic epilepsy and epileptic syndromes, not intractable, without status epilepticus] Onset: 05-25-2023 05-06-2024 Chronic Immunizations and screening for infectious disease (8 sources) Contact with and (suspected) exposure to other viral communicable diseases; Translations: [Contact with or suspected exposure to other viral communicable disease] Onset: 03-13-2024 06-17-2022 Episodic Mood disorders (2 sources) Major depressive disorder, recurrent, moderate; Translations: [Major depressive disorder, recurrent, moderate] Onset: 04-22-2025 Chronic Other ear and sense organ disorders (6 sources) Impacted cerumen; Translations: [Impacted cerumen, bilateral] Onset: 03-14-2017 03-14-2017 Episodic Other ear and sense organ disorders (1 source) Sensation of blocked ear; Translations: [Other specified disorders of ear, unspecified ear] 05-24-2022 Episodic Other ear and sense organ disorders (1 source) Impacted cerumen, bilateral; Translations: [Impacted cerumen] 09-22-2022 Episodic Other eye disorders (1 source) Marginal corneal ulcer of right eye; Translations: [Marginal corneal ulcer, right eye] Episodic Other nervous system disorders (1 source) Abnormal sensation; Translations: [Other disturbances of skin sensation] 07-15-2018 Episodic Other skin disorders (1 source) Disorder of right lower extremity; Translations: [Localized swelling, mass and lump, right lower limb] 07-15-2018 Episodic Other upper respiratory infections (4 sources) Acute maxillary sinusitis; Translations: [Acute maxillary sinusitis] 08-20-2021 Episodic Superficial injury; contusion (1 source) Contusion of thigh; Translations: [Contusion of right thigh, sequela] 07-15-2018 Episodic Unclassified (2 sources) COLD SX 08-20-2021 Comment on above: COLD SX Past or Other Problems Problem Classification Problem Date Documented Da te Episodic/Chronic Influenza (4 sources) Influenza; Translations: [Influenza due to unidentified influenza virus with other respiratory manifestations] Onset: 10-17-2010 Resolved: 11-28-2010 10-17-2010 Episodic Other screening for suspected conditions (not mental disorders or infectious disease) (9 sources) Encounter for screening for malignant neoplasm of cervix; Translations: [Cancer cervix screening status] Onset: 03-13-2024 Episodic Other skin disorders (4 sources) Acne vulgaris; Translations: [Acne vulgaris] 03-02-2011 Episodic Unclassified (3 sources) Onset: 04-23-2025 04-23-2025 Results Test Name Value Interpretation Reference Range Facility Urgent Care Visit Reporton 1 Urgent Care Visit Report [facility] [address], [address] [place] [address] OFFICE VISIT Date of Service: 06/28/25 MR#: [id number] Acct: [id number] Name: GENEVIEVE SCHULTZ Rep #: [id number] : 1995 Provider: JOVI Brito Age/Sex: 30/F Location: [facility] Status: Signed Intake Vital Signs 06/24/25 10:57 06/28/25 11:22 06/28/25 11:35 Height 5 ft 3 in 5 ft 3 in Weight: 138 lb 138 lb BMI 24.4 BP 118/79 104/60 Blood Pressure Location Lt brachial Lt brachial Position Sitting Sitting Respiration 14 Pulse 66 71 Pulse Source Monitor Monitor Temp 98.6 F 98.3 F Temp Source Temporal Oral Pulse Oximetry (%) 98 Oxygen Delivery Method room air Intake Visit Reasons: EARS CLOGGED Chief Complaint: Ear fullness Accompanied by: Self Allergies No Known Allergies Allergy (Verified 06/28/25 12:15) Medications ???Medication ???Instructions ???Recorded ???Confirmed ???Type carbamazepine 400 mg 400 mg PO BID 12/10/16 06/28/25 Hi story tablet,extended release,12 hr spironolactone 100 mg tablet 100 mg PO DAILY 03/27/25 06/28/25 History (Aldactone) sertraline 25 mg tablet (Zoloft) 50 mg PO DAILY 06/24/25 06/28/25 H istory Nurse's Note: Bilateral ear fullness. X few days. 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 Smoking Status: Never smoker alcohol intake: current alcohol intake frequency: a few times a week Alcohol type: other details: Abhi substance use type: does not use eating out: rarely or never what type of physical activity do you participate in: weight training seatbelt use: always do you feel safe at home: Yes additional social history: DOES USE ASPIRIN DOES USE IBUPROFEN HPI HPI Chief Complaint: Ear fullness Details: GENEVIEVE SCHULTZ, is a 30 F who presents to the office today for ear fullness -feels ears blocked- feels her hearing is just more faint not as clear - usually when happens needs ears flushed -no uri sx ROS Const Constitutional: Positive for other (ROS negative x6 except what was placed in HPI) Exam Const General: cooperative, healthy appearing, comfortable and no acute distress Orientation: alert and oriented x3 HENMT Other: -bilateral ears + cerumen impaction- will have staff do ear lavage -post ear lavage- cleared cerumen- TM normal- mild redness noted to right ear at 6 o'clock- most likely from ear lavage Coding Level of Care Code Off vis,est,level 3 Diagnoses Bilateral impacted cerumen H61.23 Laterality: bilateral Assessment and Plan Assessment and Plan (1) Cerumen impaction: Status: Acute Qualifiers: Laterality: bilateral Qualified Code(s): H61.23 - Impacted cerumen, bilateral 06/28/25 1309 Date Radha Brito SALES RECORD CLERK-C Cosigner Signature: Date (if applicable) CC: Normal [facility] Ammoniaon 06-27-2025 Ammonia (P) [Moles/Vol] 30.7 umol/L Normal 11-51 [facility] Comment on above: Performed By: #### L 501.7900, [id number] #### [facility] [address] [place], [place], [address] Carbamazepine (Tegretol)on 1 CARBAMAZEPINE 9.3 ug/mL Normal 4.0-12.0 [facility] Comment on above: Performed By: #### L 501.7900, [id number] #### [facility] [address] [place], [place], [address] Neurology Visit Reporton Neurology Visit Report [facility] [address] [facility] [address], [address] [place], [place] [address] OFFICE VISIT Date of Service: 06/24/25 MR#: [id number] Acct: [id number] Name: GENEVIEVE SCHULTZ Rep #: [id number] : 1995 Provider: Dr. Jonas isaacs MD Age/Sex: 30/F Location: [facility] Status: Signed HPI HPI Chief Complaint: est care Details: The patient is a 29-year-old right handed [facility] by nurse practitioner Rosalva Dumont [facility] for [facility]. This patient has seizure disorder, epilepsy, diagnosed IR about 07/12/2013 according to medical records available in chart. She was seen including clinic. Patient's initial presentation was 1/4 visual phenomenon with changing colors while watching TV. Patient was 16 at time of diagnosis. Patient's seizure disorder has been well-controlled. Last seizure was about 8 or 9 years ago. She has visual phenomena flashing lights followed by generalized tonic-clonic seizure. There is a postictal phase of confusion and disorientation. Duration postictal phase uncertain but may be minutes to hours. Patient did have an EEG performed at that time which has been interpreted as normal. Several EEGs are available in the chart. Patient also had MRI of the brain performed during initial evaluations which have been ordered is normal. Patient's treating neurologist Dr. Malin has close to his local practice. Patient seeks to establish care at this time. Patient's medications are being managed by her primary care provider. I think that this is appropriate at this time. Patient is aware that her medication carbamazepine extended release 400 mg p.o. twice daily may be problematic during . Patient is currently practicing methods of contraception to avoid . She does not take control pills. She notes no relationship between her menses and seizure activity. Patient advised that should she become referral to high risk will be made by me. Patient's not had a recent carbamazepine level or ammonia level. Patient's overall status appears quite stable. ROS: General: No recent upper respiratory tract infections. Patient did test positive for COVID-19 in the past. HEENT: Patient has no headaches although chart indicates that patient has migraine. No changes in vision. Visual aura noted as described above. No change in hearing. No epistaxis. Patient reports 2 episodes of possible concussive event. Respiratory: No shortness of breath cough or hemoptysis. Cardiac: No chest pain palpitations Abdomen: No abdominal pain vomiting blood or passing blood in stool no hematuria Extremities: Chart indicates thigh bruise but no active injuries noted. 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 Skin: No rashes Neurologic: No strokes. Exam Const Other: Blood pressure 118/79 pulse 66 respiration 14 temperature 98.6 BMI is 24.4 General appearance a well-developed well-nourished female in no acute distress. Neurologic examination: Mental status awake alert oriented x 3. Memory language functions intact. Insight and judgment normal. Mood appears appropriate. (History of pression noted). No delusions or hallucinations noted. CN II-XII: Pupils equal round react to light. 4 mm. Visual sweeney appear full to confrontation. Fundi not examined. Extraocular muscles intact. Motor and sensory function face normal. Hearing swallowing phonation tongue normal. Motor exam: No focal weakness identified. No drift noted. Cerebellar function: No cogwheeling rigidity tremor bradykinesia or ataxia. Reflexes: 2+ at biceps 3+ at knees 1+ at ankles toes downgoing. Sensory exam: Intact to tactile and vibratory sense all 4 extremities. Station gait normal. Romberg negative. Assessment and Plan Assessment and Plan (1) Epilepsy: Status: Chronic Qualifiers: Epilepsy type: generalized idiopathic Intractability: not intractable Status epilepticus: without status epilepticus Qualified Code(s): G40.309 - Generalized idiopathic epilepsy and epileptic syndromes, not intractable, without status epilepticus Comment: Well-controlled. Plan: 1. Continue present medications. Patient's primary care provider will continue prescriptions for carbamazepine ER 4 mg p.o. twice daily. 2. Check carbamazepine level and ammonia level. 3. Patient advised about and use of antiseizure meds. Immediately inform neurology and primary care physician when she becomes . Referral to high risk will be done as needed. At this time patient has no intention of becoming . 4. Patient return to neurology clinic in 1 year. Orders: Orders Carbamazepine (Tegretol) Today G40.909 - Epilepsy, unspecified, not intractable, without status epilepticus Ammonia Today G40.909 - Epilepsy, unspecified, not intractable, without st (more content not included)... Normal [facility] CBC W/Diff, Automatedon 09-0 9-2024 Absolute Lymph 2.75 X10 3/uL Normal 0.83-4.51 [facility] Comment on above: Performed By: #### L 501.9520, L500.4050, L100.0100 #### [facility] [address] [place], [address] Absolute Neut 3.8 X10 3/uL Normal 2.0-7.7 [facility] Comment on above: Performed By: #### L 501.9520, L500.4050, L100.0100 #### [facility] [address] [place], [address] Basophils/100 WBC (Bld) 0.8 % Normal 0-1 [facility] Comment on above: Performed By: #### L 501.9520, L500.4050, L100.0100 #### [facility] [address] [place], [address] Eosinophils/100 WBC (Bld) 0.0 % Normal 0-5 [facility] Comment on above: Performed By: #### L 501.9520, L500.4050, L100.0100 #### [facility] [address] [place], [address] Erythrocyte distribution width (RBC) [Ratio] 12.2 % Normal 11.6-14.6 [facility] Comment on above: Performed By: #### L 501.9520, L500.4050, L100.0100 #### [facility] [address] [place], [address] Hematocrit (Bld) [Volume fraction] 42.0 % Normal 37-47 [facility] Comment on above: Performed By: #### L 501.9520, L500.4050, L100.0100 #### [facility] [address] [place], [address] Hemoglobin (Bld) [Mass/Vol] 14.1 g/dL Normal 12.0-15.0 [facility] Comment on above: Performed By: #### L 501.9520, L500.4050, L100.0100 #### [facility] [address] [place], [address] IG% 0.600 Normal 0.0-0.9 [facility] Comment on above: Result Comment: IG% - Immature Granulocytes (promyelocytes, myelocytes and metamyelocytes) > 1% indicates that a LEFT SHIFT is Present. Performed By: #### L 501.9520, L500.4050, L100.0100 #### [facility] [address] [place], [address] Lymphocytes/100 WBC (Bld) 38.4 % Normal 19-41 [facility] Comment on above: Performed By: #### L 501.9520, L500.4050, L100.0100 #### [facility] [address] [place], [address] MCH (RBC) [Entitic mass] 31.6 pg Normal 27.0-32.0 [facility] Comment on above: Performed By: #### L 501.9520, L500.4050, L100.0100 #### [facility] [address] [place], [address] MCHC (RBC) [Mass/Vol] 33.6 g/dL Normal 32-36 [facility] Comment on above: Performed By: #### L 501.9520, L500.4050, L100.0100 #### [facility] [address] [place], [address] MCV (RBC) [Entitic vol] 94.2 fL Normal 81-99 [facility] Comment on above: Performed By: #### L 501.9520, L500.4050, L100.0100 #### [facility] [address] [place], [address] Monocytes/100 WBC (Bld) 7.0 % Normal 0-10 [facility] Comment on above: Performed By: #### L 501.9520, L500.4050, L100.0100 #### [facility] [address] [place], [address] Neutrophils/100 WBC (Bld) 53.2 % Normal 47-70 [facility] Comment on above: Performed By: #### L 501.9520, L500.4050, L100.0100 #### [facility] [address] [place], [address] Nucleated RBC (Bld) [#/Vol] 0 10*3/uL Normal 0-5 [facility] Comment on above: Performed By: #### L 501.9520, L500.4050, L100.0100 #### [facility] [address] [place], [address] Platelet mean volume (Bld) [Entitic vol] 9.1 fL Normal 6.2-12.0 [facility] Comment on above: Performed By: #### L 501.9520, L500.4050, L100.0100 #### [facility] [address] [place], [address] Platelets (Bld) [#/Vol] 294 10*3/uL Normal 150-450 [facility] Comment on above: Performed By: #### L 501.9520, L500.4050, L100.0100 #### [facility] [address] [place], [address] RBC (Bld) [#/Vol] 4.46 10*6/uL Normal 4.2-5.4 [facility] Comment on above: Performed By: #### L 501.9520, L500.4050, L100.0100 #### [facility] [address] [place], [address] RDW SD 42.5 fl Normal 35.1-43.9 [facility] Comment on above: Performed By: #### L 501.9520, L500.4050, L100.0100 #### [facility] [address] [place], [address] WBC (Bld) [#/Vol] 7.2 10*3/uL Normal 4.4-11.0 [facility] Comment on above: Performed By: #### L 501.9520, L500.4050, L100.0100 #### [facility] [address] [place], [address] Comprehensive Metabolic Prof ilon 05-27-2025 Albumin [Mass/Vol] 4.4 g/dL Normal 3.5-5.0 [facility] Comment on above: Performed By: #### L 501.9520, L500.4050, L100.0100 #### [facility] [address] [place], [address] Albumin/Globulin [Mass ratio] 1.9 {ratio} Normal 0.9-2.4 [facility] Comment on above: Performed By: #### L 501.9520, L500.4050, L100.0100 #### [facility] [address] [place], [address] ALK PHOS 50 U/L Normal 35-104 [facility] Comment on above: Performed By: #### L 501.9520, L500.4050, L100.0100 #### [facility] [address] [place], [address] ALT [Catalytic activity/Vol] 17 U/L Normal <=34 [facility] Comment on above: Performed By: #### L 501.9520, L500.4050, L100.0100 #### [facility] [address] [place], [address] AST [Catalytic activity/Vol] 20 U/L Normal <=31 [facility] Comment on above: Performed By: #### L 501.9520, L500.4050, L100.0100 #### [facility] [address] [place], [address] Bilirubin [Mass/Vol] 0.18 mg/dL Normal 0.00-1.30 [facility] Comment on above: Performed By: #### L 501.9520, L500.4050, L100.0100 #### [facility] [address] [place], [address] BUN/CRE 25.6 RATIO High 10-20 [facility] Comment on above: Performed By: #### L 501.9520, L500.4050, L100.0100 #### [facility] [address] [place], [address] Calcium [Mass/Vol] 8.8 mg/dL Normal 7.6-11.0 [facility] Comment on above: Performed By: #### L 501.9520, L500.4050, L100.0100 #### [facility] [address] [place], [address] Chloride [Moles/Vol] 100 mmol/L Normal 98-108 [facility] Comment on above: Performed By: #### L 501.9520, L500.4050, L100.0100 #### [facility] [address] [place], [address] CO2 [Moles/Vol] 25.1 mmol/L Normal 21.0-32.0 [facility] Comment on above: Performed By: #### L 501.9520, L500.4050, L100.0100 #### [facility] [address] [place], [address] Creatinine [Mass/Vol] 0.70 mg/dL Normal 0.70-1.20 [facility] Comment on above: Performed By: #### L 501.9520, L500.4050, L100.0100 #### [facility] [address] [place], [address] GAP 11 Normal 5-15 [facility] Comment on above: Performed By: #### L 501.9520, L500.4050, L100.0100 #### [facility] [address] [place], [address] GFR/1.73 sq M.predicted among non-blacks MDRD (S/P/Bld) [Vol rate/Area] 120 mL/min/{1.73_m2} Normal >60 [facility] Comment on above: Result Comment: mL/m in/1.73m2 CKD-EPI Creatinine Equation (2020) Performed By: #### L 501.9520, L500.4050, L100.0100 #### [facility] [address] [place], [address] Globulin (S) [Mass/Vol] 2.3 g/dL Normal 2.2-4.2 [facility] Comment on above: Performed By: #### L 501.9520, L500.4050, L100.0100 #### [facility] [address] [place], [address] Glucose [Mass/Vol] 87 mg/dL Normal 70-99 [facility] Comment on above: Performed By: #### L 501.9520, L500.4050, L100.0100 #### [facility] [address] [place], [address] Potassium [Moles/Vol] 4.0 mmol/L Normal 3.3-5.1 [facility] Comment on above: Performed By: #### L 501.9520, L500.4050, L100.0100 #### [facility] [address] [place], [address] Sodium [Moles/Vol] 136 mmol/L Normal 133-145 [facility] Comment on above: Performed By: #### L 501.9520, L500.4050, L100.0100 #### [facility] [address] [place], [address] T PROT 6.6 g/dL Normal 5.9-8.4 [facility] Comment on above: Performed By: #### L 501.9520, L500.4050, L100.0100 #### [facility] [address] [place], [address] Urea nitrogen [Mass/Vol] 18 mg/dL Normal 4-19 [facility] Comment on above: Performed By: #### L 501.9520, L500.4050, L100.0100 #### [facility] [address] 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 [facility] Work Phone: [facility] Work Phone: HCG ( test) Ql (U)o n 05-20-2025 Interpretation and review of laboratory results Normal [facility] Work Phone: Preg Test, Ur Negative Negative [facility] Work Phone: [facility] Work Phone: Surgical pathology studyon 0 05-20-2025 Surgical pathology study Pathology report.total SEE COMMENT Surgical Pathology Case: [id number] Authorizing Provider: Topher Murry MD Collected: 05/20/2025 1546 Ordering Location: [facility] Received: 05/20/2025 1546 Pathologist: Melissa Ramírez MD Specimens: A) - CERVIX BIOPSY, Cervical Biopsy @ 2 o'clock B) - ENDOCERVIX CURETTINGS, ECC Path report.final diagnosis SEE COMMENT A. CERVIX, BIOPSY: -- Squamous mucosa with low grade squamous intraepithelial lesion (LUCIANO 1) B. ENDOCERVIX, CURETTINGS: -- Minute degenerated squamous epithelium; no endocervical component is sampled at 1300 EDT Laboratory comment By the signature on this report, the individual or group listed as making the Final Interpretation/Diag nosis certifies that they have reviewed this case. Path report.relevant Hx LGSIL Path report.gross observation SEE COMMENT A: Received in formalin, labeled with the patient's name and hospital number and cervical biopsy at 2:00, is a fragment of white-moser mucosa measuring 0.3 x 0.3 x 0.2 cm. The presumed margin of resection is inked blue. The specimen is submitted in toto in one cassette. SSD B: Received in formalin, labeled with the patient's name and hospital number and ECC, is a scant amount of mucus and soft tissue aggregating to 0.4 x 0.2 x 0.1 cm. The specimen is submitted in toto in one cassette. The specimen may not survive processing. [facility] HEPATITIS C AB W/REFL TO HCV RNA, QN, PCRon 04-28-2025 HEPATITIS C ANTIBODY Non-Reactive Normal NON-REACTIVE [facility] Comment on above: Result Comment: HCV antibody was non-reactive. There is no laboratory evidence of HCV infection. In most cases, no further action is required. However, if recent HCV exposure is suspected, a test for HCV RNA (test code 58136) is suggested. For additional information please refer to http://education.AWID.HTP/faq/IUE91n8 (This link is being provided for informational/ educational purposes only.) Performed By: #### 9 3240, 2678 #### [facility] [address] [place] [address], [address] [place] [id number] Shed Hand: Tony Carrasquillo MD #### [id number] #### [facility]/[place] [address] [facility] [address] [place] Shed Hand: Linus Noble M.D.,PhD HIV 1/2 ANTIGEN/ANTIBODY,FOU RTH GENERATION W/RFL 04-28-2025 HIV AG/AB, 4TH GEN Non-Reactive Normal NON-REACTIVE [facility] Comment on above: Performed By: #### 9 1431, 8472 #### [facility] [address], [address] [place] [address] Shed Hand: Tony Carrasquillo MD #### [id number] #### [facility]/[place] [id number] [facility] [place], [place] Shed Hand: Linus Noble M.D.,PhD HIV FINAL INTERPRETATION Normal [facility] Comment on above: Result Comment: HIV Negative HIV-1 antigen and HIV-1/HIV-2 antibodies were not detected. There is no laboratory evidence of HIV infection. Performed By: #### 9 1431, 8472 #### [facility] [address], [address] [place] [address] Shed Hand: Tony Carrasquillo MD #### [id number] #### [facility]/[place] [id number] [facility] [place], [place] Shed Hand: Linus Noble M.D.,PhD SYPHILIS ANTIBODY CASCADING [facility] 04-28-2025 T. PALLIDUM AB Negative Normal Negative [facility] Comment on above: Result Comment: No antibodies to T. pallidum (the agent causing syphilis) were detected in the specimen. This result, however, does not exclude very recent T. pallidum infection; testing of a second specimen, collected 2-4 weeks after this specimen, is recommended if the index of suspicion for recent infection is high. Performed By: #### 9 1431, 8472 #### [facility] [place] [address] [place] , [address] [place] [address] Shed Hand: Tony Carrasquillo MD #### [id number] #### [facility]/[place] [id number] [facility] [address] [place] Shed Hand: Linus Noble M.D.,PhD C. trachomatis and N. gonorr hoeae DNA LANEY+probe Nom (Unsp spec)on 04-23-2025 C. trachomatis rRNA LANYE+probe Ql (Unsp spec) Negative Normal Negative [facility] Comment on above: Order Comment: The A PTIMA Combo 2 assay is FDA-approved NAAT using target capture for the in vitro qualitative detection and differentiation of ribosomal RNA (rRNA) for Chlamydia trachomatis and Neisseria gonorrhoeae testing on clinician-collected endocervical, PreservCyt solution liquid Pap specimens, vaginal, throat, rectal, and male urethral swab specimens; patient-collected vaginal swab specimens, and female and male urine specimens from symptomatic and asymptomatic individuals. Samples from all other sites are not validated for this method. Performed By: #### 3 6903-3 #### CHENCHO Sherman ([id number]) [facility] ([facility]) [address] [place] [address] N. gonorrhoeae DNA Probe+sig amp Ql (Unsp spec) Negative Normal Negative [facility] Comment on above: Order Comment: The A PTIMA Combo 2 assay is FDA-approved NAAT using target capture for the in vitro qualitative detection and differentiation of ribosomal RNA (rRNA) for Chlamydia trachomatis and Neisseria gonorrhoeae testing on clinician-collected endocervical, PreservCyt solution liquid Pap specimens, vaginal, throat, rectal, and male urethral swab specimens; patient-collected vaginal swab specimens, and female and male urine specimens from symptomatic and asymptomatic individuals. Samples from all other sites are not validated for this method. Performed By: #### 3 6903-3 #### CHENCHO Sherman ([id number]) [facility] ([facility]) [address] [place] [address] Cervicalon 04-23-2025 Cytology Cervical or vaginal smear or scraping study Pathology report.total SEE COMMENT Gynecologic Cytology Case: [id number] Authorizing Provider: Marlen Heck MD Collected: 04/23/20251420 Ordering Location: [facility] Received: 04/23/20251420 First Screen: Ruby Mohan, CT Pathologist: Kandace Moser MD Specimen: ThinPrep Liquid-Based Pap-Imaging System Screen, CERVIX, SCREENING Cytology study comment SEE COMMENT Squamous and/or Glandular Abnormality A. THINPREP PAP CERVIX, SCREENING - Specimen Adequacy Satisfactory for evaluation; endocervical/transf ormation zone component is present General Categorization Epithelial cell abnormality- squamous cell, see interpretation. Descriptive Interpretation Low grade squamous intraepithelial lesion (LSIL) - Cervix Specimen does not meet the requisition-stated criteria for HPV testing. See Pap test interpretation above. at 1306 EDT Laboratory comment SEE COMMENT Slide(s) initially screened by DHIRAJ Vaughan at [facility] [address] [facility] [id number] By the signature on this report, the individual or group listed as making the Final Interpretation/Diag nosis certifies that they have reviewed this case. This specimen has been analyzed by the [employer] System ([employer] an automated imaging and review system, which assists the laboratory in evaluating cells on ThinPrep Pap tests. Following automated imaging, selected sweeney from every slide were reviewed by a payroll supervisor and/or pathologist. Cervical cytology is a screening procedure primarily for squamous cancers and precursors and has associated false-negative and false-positives results as evidenced by published data. Your patient's test should be interpreted in this context, together with the patient's history and clinical findings. Regular sampling and follow-up of unexplained clinical signs and symptoms are recommended to minimize false negative results. LAB AP HPV HR Reflex if ASCUS only LAB AP HPV GENOTYPE QUESTION Yes LAB AP PAP ADDITIONAL TESTS Chlamydia + Gonorrhea Date last menstrual period 04/12/2025 LAB AP PREVIOUS ABNORMAL HISTORY ASCUS Normal [facility] HPV 16 and 18 and 31+33+35+3 9+45+51+52+56+58+59+66+68 DNA Pnl (Cvx)on 04-23-2025 HPV 16 DNA LANEY+probe Ql (Unsp spec) Negative Normal Negative [facility] Comment on above: Order Comment: Testi ng for high-risk (HR) types of human papilloma virus (HPV) is performed by the [employer] mitul HPV Test. The mitul HPV Test is a qualitative polymerase chain reaction that amplifies DNA of HPV16, HPV18, and 12 other high-risk HPV types (31, 33, 35, 39, 45, 51, 52, 56, 58, 59, 66, and 68) associated with cervical cancer and its precursor lesions. A positive result indicates the presence of HPV DNA due to one or more of the 14 genotypes: 16, 18, 31, 33, 35, 39, 45, 51, 52, 56, 58, 59, 66, and 68. Negative results indicates HPV DNA concentrations are undectectable or below the pre-set threshold for detection. False negative results may be associated with unoptimized sampling. A negative HR HPV result does not exclude the possibility of future cytologic HSIL or underlying CIN2-3 or cancer. This test is approved by the [place] Food and Drug Administration. Results of this test should be interpreted in conjunction with the patient Pap test results. Please refer to ASCCP current quidelines for the use of HPV DNA testing, result interpretation, and patient management. The performance of this test was verified by the [facility] at [facility]. The lab is certified under the Clinical Laboratory Amendments of 1988 (CLIA 88) as qualified to perform high complexity clinical laboratory testing. PERFORMING LAB LOCATIONS [facility]: [address] [place] [address] Performed By: #### 7 1432-9 #### CHENCHO Sherman ([id number]) [facility] ([facility]) [address] [place] [address] HPV 18 DNA LANEY+probe Ql (Unsp spec) Negative Normal Negative [facility] Comment on above: Order Comment: Testi ng for high-risk (HR) types of human papilloma virus (HPV) is performed by the [employer] mitul HPV Test. The mitul HPV Test is a qualitative polymerase chain reaction that amplifies DNA of HPV16, HPV18, and 12 other high-risk HPV types (31, 33, 35, 39, 45, 51, 52, 56, 58, 59, 66, and 68) associated with cervical cancer and its precursor lesions. A positive result indicates the presence of HPV DNA due to one or more of the 14 genotypes: 16, 18, 31, 33, 35, 39, 45, 51, 52, 56, 58, 59, 66, and 68. Negative results indicates HPV DNA concentrations are undectectable or below the pre-set threshold for detection. False negative results may be associated with unoptimized sampling. A negative HR HPV result does not exclude the possibility of future cytologic HSIL or underlying CIN2-3 or cancer. This test is approved by the US Food and Drug Administration. Results of this test should be interpreted in conjunction with the patient Pap test results. Please refer to [facility] current quidelines for the use of HPV DNA testing, result interpretation, and patient management. The performance of this test was verified by the [facility] at [facility]. The lab is certified under the Clinical Laboratory Amendments of 1988 (CLIA 88) as qualified to perform high complexity clinical laboratory testing. PERFORMING LAB LOCATIONS [facility]: [id number] [place] [address] Performed By: #### 7 1432-9 #### CHENCHO Sherman ([id number]) [facility] ([facility]) [address] [place] [address] HPV 31+33+35+39+45+51+52+56 +58+59+66+68 DNA LANEY+probe Ql (Genital specimen) Positive Abnormal Negative [facility] Comment on above: Order Comment: Testi ng for high-risk (HR) types of human papilloma virus (HPV) is performed by the Karlo mitul HPV Test. The mitul HPV Test is a qualitative polymerase chain reaction that amplifies DNA of HPV16, HPV18, and 12 other high-risk HPV types (31, 33, 35, 39, 45, 51, 52, 56, 58, 59, 66, and 68) associated with cervical cancer and its precursor lesions. A positive result indicates the presence of HPV DNA due to one or more of the 14 genotypes: 16, 18, 31, 33, 35, 39, 45, 51, 52, 56, 58, 59, 66, and 68. Negative results indicates HPV DNA concentrations are undectectable or below the pre-set threshold for detection. False negative results may be associated with unoptimized sampling. A negative HR HPV result does not exclude the possibility of future cytologic HSIL or underlying CIN2-3 or cancer. This test is approved by the US Food and Drug Administration. Results of this test should be interpreted in conjunction with the patient Pap test results. Please refer to [facility] current quidelines for the use of HPV DNA testing, result interpretation, and patient management. The performance of this test was verified by the [facility] at [facility]. The lab is certified under the Clinical Laboratory Amendments of 1988 (CLIA 88) as qualified to perform high complexity clinical laboratory testing. PERFORMING LAB LOCATIONS [facility]: [address] [place] [address] Performed By: #### 7 1432-9 #### CHENCHO Sherman ([id number]) [facility] ([facility]) [address] [place] [address] Human papilloma virus high-risk genotypes panel Positive Abnormal Negative [facility] Comment on above: Order Comment: Testi ng for high-risk (HR) types of human papilloma virus (HPV) is performed by the Karlo mitul HPV Test. The mitul HPV Test is a qualitative polymerase chain reaction that amplifies DNA of HPV16, HPV18, and 12 other high-risk HPV types (31, 33, 35, 39, 45, 51, 52, 56, 58, 59, 66, and 68) associated with cervical cancer and its precursor lesions. A positive result indicates the presence of HPV DNA due to one or more of the 14 genotypes: 16, 18, 31, 33, 35, 39, 45, 51, 52, 56, 58, 59, 66, and 68. Negative results indicates HPV DNA concentrations are undectectable or below the pre-set threshold for detection. False negative results may be associated with unoptimized sampling. A negative HR HPV result does not exclude the possibility of future cytologic HSIL or underlying CIN2-3 or cancer. This test is approved by the US Food and Drug Administration. Results of this test should be interpreted in conjunction with the patient Pap test results. Please refer to [facility] current quidelines for the use of HPV DNA testing, result interpretation, and patient management. The performance of this test was verified by the [facility] at [facility]. The lab is certified under the Clinical Laboratory Amendments of 1988 (CLIA 88) as qualified to perform high complexity clinical laboratory testing. PERFORMING LAB LOCATIONS [facility]: [address] [place] [address].[place] [address] Performed By: #### 7 1432-9 #### CHENCHO Sherman ([id number]) [facility] ([facility]) [address] [place] [address] Urgent Care Visit Reporton 0 11-23-2024 Urgent Care Visit Report [facility] [address], [address] [place] [address] OFFICE VISIT Date of Service: 11/23/24 MR#: [id number] Acct: [id number] Name: GENEVIEVE SCHULTZ Rep #: [id number] : 1995 Provider: NAEEM Goodwin Age/Sex: 29/F Location: [facility] Status: Signed Intake Vital Signs 06/04/24 13:57 11/23/24 12:04 Height 5 ft 3 in Weight: 135 lb BMI 23.9 BP 128/82 H 102/60 Blood Pressure Location Lt brachial Lt brachial Position Sitting Sitting Respiration 16 14 Pulse 65 73 Pulse Source Monitor NIBP Temp 99.1 F 98.2 F Temp Source Temporal Oral Pulse Oximetry (%) 98 97 Oxygen Delivery Method room air room air Intake Visit Reasons: EARS CLOGGED Chief Complaint: CLOGGED EARS Compressed Gases Tester Required: No Is patient in pain?: No Allergies No Known Allergies Allergy (Verified 11/23/24 12:05) Medications ???Medication ???Instructions ???Recorded ???Confirmed ???Type carbamazepine 400 mg 400 mg PO BID 12/10/16 06/04/24 Hi story tablet,extended release,12 hr biotin 2,500 mcg capsule 2,500 mcg PO DAILY 10/06/17 History multivitamin 1 cap PO QAM 10/06/17 06/04/24 His tory Is last menstrual period known: No Post menopausal: No Patient : No Have you fallen in the past year?: No Nurse's Note: bilateral ears clogged x 1 week. denies pain, drainage, fever, viral illness. states needs ears cleaned intermittently and feels like its time. [facility] Medical History Contact with or exposure to other viral diseases Impacted cerumen of both ears Seizures Family History Other Breast cancer CVA (cerebral vascular accident) Cancer Cervical cancer Diabetes Heart disease Social History (Reviewed 06/04/24 @ 13:58 by EWA Sifuentes Smoking Status: Never smoker alcohol intake: current alcohol intake frequency: a few times a week Alcohol type: other details: Abhi substance use type: does not use additional social history: DOES USE ASPIRIN DOES USE IBUPROFEN HPI HPI Chief Complaint: CLOGGED EARS Details: GENEVIEVE SCHULTZ, is a 29 F who presents to the office today for evaluation of clogged ears. Patient states that over the past week she has noticed increased sensation of fullness in her ears bilaterally. She notes some mild hearing loss but denies pain, otorrhea, fever, or other illness. Patient desires irrigation since this has adequately treated this issue in the past. Patient denies home treatment for this issue. ROS Const Constitutional: No chills or fever(s) ENT ENT: No ear or mastoid pain, ear discharge, hearing loss, tinnitus, dizziness/vertigo, nasal congestion, sinus pressure, sinus pain or nasal discharge Exam Const General: cooperative and no acute distress HENMT Ears: hearing grossly normal bilaterally and EAC abnormal cerumen impaction bilaterally; no erythema, no edema, no EA tenderness and no otic discharge Neck Lymphatic: no lymphadenopathy noted Office Procedures Cerumen Removal Procedure BMS Cerumen Removal Procedure Procedure performed by: Ivania Braga Method of removal: irrigation From which ear canal was the cerumen removed: bilateral Amount of Cerumen: moderate Patient tolerated procedure: well Complications: none Coding Level of Care Code Established Pt Off vis,est,level 2 Patient Type Established History Problem Focused Exam Problem Focused Medical Decision Making Straight Forward Diagnoses Impacted cerumen of both ears H61.23 Assessment and Plan Assessment and Plan (1) Impacted cerumen of both ears: Status: Acute Plan: Cerumen successfully removed with irrigation, patient tolerated well. Ear care reviewed as well as monitoring for signs of infection. F/u PRN for recurrent symptoms. Patient voiced understanding and agreement with plan. Clinical Quality Measures Falls Risk Screening/Assistive Devices Have you fallen in the past year?: No 11/23/24 1219 Date William Mota Signature: Date (if applicable) CC: Normal [facility] CBC W/Diff, Automatedon -2 Absolute Lymph 1.85 X10 3/uL Normal 0.83-4.51 [facility] Comment on above: Performed By: #### L 100.0100, L501.9520, L500.4100, L501.9985, L500.4050 #### [facility] [address] [place], [address] Absolute Neut 3.5 X10 3/uL Normal 2.0-7.7 [facility] Comment on above: Performed By: #### L 100.0100, L501.9520, L500.4100, L501.9985, L500.4050 #### [facility] [address] [place], [address] Basophils/100 WBC (Bld) 1.3 % High 0-1 [facility] Comment on above: Performed By: #### L 100.0100, L501.9520, L500.4100, L501.9985, L500.4050 #### [facility] [address] [place], [address] Eosinophils/100 WBC (Bld) 4.5 % Normal 0-5 [facility] Comment on above: Performed By: #### L 100.0100, L501.9520, L500.4100, L501.9985, L500.4050 #### [facility] [address] [place], [address] Erythrocyte distribution width (RBC) [Ratio] 12.5 % Normal 11.6-14.6 [facility] Comment on above: Performed By: #### L 100.0100, L501.9520, L500.4100, L501.9985, L500.4050 #### [facility] [address] [place], [address] Hematocrit (Bld) [Volume fraction] 42.5 % Normal 37-47 [facility] Comment on above: Performed By: #### L 100.0100, L501.9520, L500.4100, L501.9985, L500.4050 #### [facility] [address] [place], [address] Hemoglobin (Bld) [Mass/Vol] 14.1 g/dL Normal 12.0-15.0 [facility] Comment on above: Performed By: #### L 100.0100, L501.9520, L500.4100, L501.9985, L500.4050 #### [facility] [address] [place], [address] IG% 0.300 Normal 0.0-0.9 [facility] Comment on above: Result Comment: IG% - Immature Granulocytes (promyelocytes, myelocytes and metamyelocytes) > 1% indicates that a LEFT SHIFT is Present. Performed By: #### L 100.0100, L501.9520, L500.4100, L501.9985, L500.4050 #### [facility] [address] [place], [address] Lymphocytes/100 WBC (Bld) 29.7 % Normal 19-41 [facility] Comment on above: Performed By: #### L 100.0100, L501.9520, L500.4100, L501.9985, L500.4050 #### [facility] [address] [place], [address] MCH (RBC) [Entitic mass] 32.1 pg High 27.0-32.0 [facility] Comment on above: Performed By: #### L 100.0100, L501.9520, L500.4100, L501.9985, L500.4050 #### [facility] [address] [place], [address] MCHC (RBC) [Mass/Vol] 33.2 g/dL Normal 32-36 [facility] Comment on above: Performed By: #### L 100.0100, L501.9520, L500.4100, L501.9985, L500.4050 #### [facility] [address] [place], [address] MCV (RBC) [Entitic vol] 96.8 fL Normal 81-99 [facility] Comment on above: Performed By: #### L 100.0100, L501.9520, L500.4100, L501.9985, L500.4050 #### [facility] [address] [place], [address] Monocytes/100 WBC (Bld) 8.5 % Normal 0-10 [facility] Comment on above: Performed By: #### L 100.0100, L501.9520, L500.4100, L501.9985, L500.4050 #### [facility] [address] [place], [address] Neutrophils/100 WBC (Bld) 55.7 % Normal 47-70 [facility] Comment on above: Performed By: #### L 100.0100, L501.9520, L500.4100, L501.9985, L500.4050 #### [facility] [address] [place], [address] Nucleated RBC (Bld) [#/Vol] 0 10*3/uL Normal 0-5 [facility] Comment on above: Performed By: #### L 100.0100, L501.9520, L500.4100, L501.9985, L500.4050 #### [facility] [address] [place], [address] Platelet mean volume (Bld) [Entitic vol] 8.8 fL Normal 6.2-12.0 [facility] Comment on above: Performed By: #### L 100.0100, L501.9520, L500.4100, L501.9985, L500.4050 #### [facility] [address] [place], [address] Platelets (Bld) [#/Vol] 318 10*3/uL Normal 150-450 [facility] Comment on above: Performed By: #### L 100.0100, L501.9520, L500.4100, L501.9985, L500.4050 #### [facility] [address] [place], [address] RBC (Bld) [#/Vol] 4.39 10*6/uL Normal 4.2-5.4 [facility] Comment on above: Performed By: #### L 100.0100, L501.9520, L500.4100, L501.9985, L500.4050 #### [facility] [address] [place], [address] RDW SD 44.7 fl High 35.1-43.9 [facility] Comment on above: Performed By: #### L 100.0100, L501.9520, L500.4100, L501.9985, L500.4050 #### [facility] [address] [place], [address] WBC (Bld) [#/Vol] 6.2 10*3/uL Normal 4.4-11.0 [facility] Comment on above: Performed By: #### L 100.0100, L501.9520, L500.4100, L501.9985, L500.4050 #### [facility] [address] [place], [address] Comprehensive Metabolic Prof alon 10-16-2024 Albumin [Mass/Vol] 3.8 g/dL Normal 3.2-5.0 [facility] Comment on above: Performed By: #### L 100.0100, L501.9520, L500.4100, L501.9985, L500.4050 ####[facility] [address] [place], [address] Albumin/Globulin [Mass ratio] 1.2 {ratio} Normal 0.9-2.4 [facility] Comment on above: Performed By: #### L 100.0100, L501.9520, L500.4100, L501.9985, L500.4050 ####[facility] [address] [place], [address] ALK P 48 U/L Normal 45-117 [facility] Comment on above: Performed By: #### L 100.0100, L501.9520, L500.4100, L501.9985, L500.4050 ####[facility] [address] [place], [address] ALT [Catalytic activity/Vol] 25 U/L Normal 13-56 [facility] Comment on above: Performed By: #### L 100.0100, L501.9520, L500.4100, L501.9985, L500.4050 ####[facility] [address] [place], [address] AST [Catalytic activity/Vol] 16 U/L Normal 15-37 [facility] Comment on above: Performed By: #### L 100.0100, L501.9520, L500.4100, L501.9985, L500.4050 ####[facility] [address] [place], [address] Bilirubin [Mass/Vol] 0.40 mg/dL Normal 0.20-1.00 [facility] Comment on above: Result Comment: For patients on eltrombopag therapy, use of [place] TBIL is not recommended. Performed By: #### L 100.0100, L501.9520, L500.4100, L501.9985, L500.4050 ####[facility] [address] [place], [address] BUN/CRE 18.8 RATIO Normal 10-20 [facility] Comment on above: Performed By: #### L 100.0100, L501.9520, L500.4100, L501.9985, L500.4050 ####[facility] [address] [place], [address] CA,Total 9.2 mg/dL Normal 8.5-10.1 [facility] Comment on above: Performed By: #### L 100.0100, L501.9520, L500.4100, L501.9985, L500.4050 ####[facility] [address] [place], [address] Chloride [Moles/Vol] 104 mmol/L Normal 98-107 [facility] Comment on above: Performed By: #### L 100.0100, L501.9520, L500.4100, L501.9985, L500.4050 ####[facility] [address] [place], [address] CO2 [Moles/Vol] 26.0 mmol/L Normal 21.0-32.0 [facility] Comment on above: Performed By: #### L 100.0100, L501.9520, L500.4100, L501.9985, L500.4050 ####[facility] [address] [place], [address] Creatinine [Mass/Vol] 0.74 mg/dL Normal 0.55-1.02 [facility] Comment on above: Result Comment: The validity of the calculated GFR GFRAA in patients over 70 years has not been determined. Clinical correlation is essential. Performed By: #### L 100.0100, L501.9520, L500.4100, L501.9985, L500.4050 ####[facility] [address] [place], [address] EST GFR - AA 119 mL/min Normal >60 [facility] Comment on above: Result Comment: Afri can Iranian GFR Calc Performed By: #### L 100.0100, L501.9520, L500.4100, L501.9985, L500.4050 ####[facility] [address] [place], [address] GAP 8 Normal 5-15 [facility] Comment on above: Performed By: #### L 100.0100, L501.9520, L500.4100, L501.9985, L500.4050 ####[facility] [address] [place], [address] GFR/1.73 sq M.predicted among non-blacks MDRD (S/P/Bld) [Vol rate/Area] 98 mL/min/{1.73_m2} Normal >60 [facility] Comment on above: Result Comment: Non- GFR Calc Performed By: #### L 100.0100, L501.9520, L500.4100, L501.9985, L500.4050 ####[facility] [address] [place], [address] Globulin (S) [Mass/Vol] 3.3 g/dL Normal 2.2-4.2 [facility] Comment on above: Performed By: #### L 100.0100, L501.9520, L500.4100, L501.9985, L500.4050 ####[facility] [address] [place], [address] Glucose [Mass/Vol] 78 mg/dL Normal 74-106 [facility] Comment on above: Performed By: #### L 100.0100, L501.9520, L500.4100, L501.9985, L500.4050 ####[facility] [address] [place], [address] Potassium [Moles/Vol] 4.3 mmol/L Normal 3.5-5.1 [facility] Comment on above: Performed By: #### L 100.0100, L501.9520, L500.4100, L501.9985, L500.4050 ####[facility] [address] [place], [address] Sodium [Moles/Vol] 138 mmol/L Normal 136-145 [facility] Comment on above: Performed By: #### L 100.0100, L501.9520, L500.4100, L501.9985, L500.4050 ####[facility] [address] [place], [address] T PROT 7.1 g/dL Normal 6.4-8.2 [facility] Comment on above: Performed By: #### L 100.0100, L501.9520, L500.4100, L501.9985, L500.4050 ####[facility] [address] [place], [address] Urea nitrogen [Mass/Vol] 14 mg/dL Normal 7-18 [facility] Comment on above: Performed By: #### L 100.0100, L501.9520, L500.4100, L501.9985, L500.4050 ####[facility] [address] [place], [address] Hemoglobin A1con 10-16-2024 HbA1c (Bld) [Mass fraction] 5.0 % Normal 3.8-5.6 [facility] Comment on above: Result Comment: Norm al < 5.7 % Prediabetic 5.7 - 6.4 % Diabetic >or= 6.5 % Please note range changes. Performed By: #### L 100.0100, L501.9520, L500.4100, L501.9985, L500.4050 #### [facility] [address] [place], [address] Lipid Profileon 10-16-2024 Cholesterol [Mass/Vol] 223 mg/dL High 200 [facility] Comment on above: Result Comment: <200 mg/dL Desirable 200-240 mg/dL Borderline >240 mg/dL High Risk Performed By: #### L 100.0100, L501.9520, L500.4100, L501.9985, L500.4050 ####[facility] [address] [place], [address] Cholesterol in HDL [Mass/Vol] 109 mg/dL Normal [facility] Comment on above: Result Comment: The drugs N-Acetylcysteine and Metamizole may falsely depress this assay. Reference Range HDL <40 mg/dL Low HDL Cholesterol HDL >or= 60 mg/dL High HDL Cholesterol Performed By: #### L 100.0100, L501.9520, L500.4100, L501.9985, L500.4050 ####[facility] [address] [place], [address] Cholesterol in LDL [Mass/Vol] 98 mg/dL Normal 0-130 [facility] Comment on above: Performed By: #### L 100.0100, L501.9520, L500.4100, L501.9985, L500.4050 ####[facility] [address] [place], [address] Cholesterol in VLDL [Mass/Vol] 16 mg/dL Normal 5-40 [facility] Comment on above: Performed By: #### L 100.0100, L501.9520, L500.4100, L501.9985, L500.4050 ####[facility] [address] [place], [address] Triglyceride [Mass/Vol] 79 mg/dL Normal [facility] Comment on above: Result Comment: The drugs N-Acetylcysteine and Metamizole may falsely depress this assay. Serum Triglycerides Reference Interval Normal <150 mg/dL Borderline high 150 - 199 mg/dL High 200 - 499 mg/dL Very High > or = 500 mg/dL Performed By: #### L 100.0100, L501.9520, L500.4100, L501.9985, L500.4050 ####[facility] [address] [facility] [place], [place], [id number] Thyroid Stim Hormone (TSH)on 10-16-2024 TSH 0.651 uIU/mL Normal 0.358-3.740 [facility] Comment on above: Performed By: #### L 100.0100, L501.9520, L500.4100, L501.9985, L500.4050 ####[facility] [address] [place], [place], [id number] HIV 1+2 Ab+HIV1 p24 Agon HIV 1+2 Ab+HIV1 p24 Ag IA Ql Non-Reactive Normal Nonreactive [facility] Comment on above: Order Comment: HIV A g/Ab screen is performed using the Siemens MEDOVENT HIV Ag/Ab Combo assay which detects the presence of HIV p24 antigen as well as antibodies to HIV-1 (Group M and O) and HIV-2. No laboratory evidence of HIV infection. If acute HIV infection is suspected, consider testing for HIV RNA by PCR (viral load). Performed By: #### 5 6888-1 #### CHENCHO Sherman ([id number]) [facility] ([facility]) [id number] [place] [address] Hepatitis C virus Abon 03-13 HCV Ab Ql (S) Non-Reactive Normal Nonreactive [facility] Comment on above: Result Comment: Resu lts from patients taking biotin supplements or receiving high-dose biotin therapy should be interpreted with caution due to possible interference with this test. Providers may contact their local laboratory for further information. Performed By: #### 1 6128-1 #### CHENCHO Sherman ([id number]) [facility] ([facility]) [address] [place] [address] Treponema pallidum Ab.IgG+Ig Mon 03-13-2024 T. pallidum IgG+IgM IA Ql (S) Non-Reactive Normal Nonreactive [facility] Comment on above: Result Comment: No s ignificant level of Treponema pallidum antibody detected. Repeat testing in 2 to 4 weeks may be considered if early infection or incubating syphilis infection is suspected. Performed By: #### 4 7236-5 #### CHENCHO Sherman ([id number]) [facility] ([facility]) [address] [place] [address] Basophil percentageOrdered B y: Dr. Thompson on 11-10-2022 Basophil percentage 0-5 SEEN /hpf 0-5 [facility] Bilirubin Test strip Ql (U)O rdered By: Dr. Thompson on 11-10-2022 Bilirubin Ql (U) Negative Negative [facility] Ketones Test strip Ql (U)Ord ered By: Dr. Thompson on 11-10-2022 Ketones Ql (U) Negative Negative [facility] - Chemistry and C hemistry - challengeOrdered By: Dr. Thompson on 11-10-2022 HCG ( test) Ql (U) Negative [facility] Comment on above: Very dilute urine sp ecimens, as indicated by a low specificgravity, may not contain telephone claims representative levels of hCG. If is still suspected, a first morning urinespecimen should be collected 48 hours later and tested. Mucus LM Ql (Urine sed)Order ed By: Dr. Thompson on 11-10-2022 Mucus Ql (Urine sed) 0 SEEN /hpf [facility] Nitrite Test strip Ql (U)Ord ered By: Dr. Thompson on 11-10-2022 Nitrite Ql (U) Negative Negative [facility] Protein Test strip Ql (U)Ord ered By: Dr. Thompson on 11-10-2022 Protein Ql (U) 15 mg/dl Negative [facility] Squamous epithelial cells de tection in urine sediment by light microscopyOrdered By: Dr. Thompson on 11-10-2022 Epithelial cells.squamous LM Ql (Urine sed) 0-5 SEEN /hpf 5-10 [facility] Urine blood detectionOrdered By: Dr. Thompson on 11-10-2022 RBC Ql (U) 25 /ul Negative [facility] RBC Ql (U) 0 SEEN /hpf 0-5 [facility] Urine clarityOrdered By: Dr. Thompson on 11-10-2022 Clarity (U) Clear Clear [facility] Urine color determinationOrd ered By: Dr. Thompson on 11-10-2022 Color (U) Yellow Yellow [facility] Urine glucose detectionOrder ed By: Dr. Thompson on 11-10-2022 Glucose Ql (U) Normal mg/dl Normal [facility] Urine leukocyte esterase det ection by dipstickOrdered By: Dr. Thompson on 11-10-2022 Leukocyte esterase Test strip Ql (U) 500 /ul Negative [facility] Urine pHOrdered By: Dr. Linette webber on 11-10-2022 pH (U) 7.0 [pH] 5.0 - 8.0 [facility] Urine sediment bacteria coun t by microscopy (number/high power field)Ordered By: Dr. Thompson on 11-10-2022 Bacteria LM.HPF (Urine sed) [#/Area] 0 /[HPF] None Seen [facility] Urine specific gravity measu rementOrdered By: Dr. Thompson on 11-10-2022 Specific gravity (U) [Rel density] 1.015 1.002-1.030 [facility] Urobilinogen Auto test strip Ql (U)Ordered By: Dr. Thompson on 11-10-2022 Urobilinogen Ql (U) Normal mg/dl Normal [facility] Provider Note - ED v2on 12-0 Provider Note - ED v2 Provider Note - ED v2: Chart Review: HISTORY OF PRESENTING ILLNESS GENEVIEVE is a 26 year old Female and was seen by me at 20-Aug-2021 11:35. Triage Information: Most recent Vital Sign Value Date PAST MEDICAL HISTORY ATTESTATION: I have reviewed and confirmed nurse's/medic's notes for patient's medications, allergies, and medical, surgical, family and social history ALLERGIES/INTOLERAN JULEE: No Known Allergies HEALTH HISTORY: No documented data. OUTPATIENT MEDICATIONS: Home Medications Review Status for Reconciliation: Complete Med Status: Patient Currently Takes Medications Drug Name: carBAMazepine 100 mg oral tablet, extended release Instructions: 1 tab(s) orally 2 times a day Drug Name: amoxicillin-clavula otto 875 mg-125 mg oral tablet Instructions: 875 milligram(s) orally 2 times a day SIGNIFICANT EVENTS: Past Medical History Description:Seizure Disorder [employer] RE[employer]: Is : no Is : no RESULTS/VITAL SIGNS VITAL SIGNS: *Vital Signs have not been recorded in the last 5 hours MEDICAL DECISION MAKING/ED COURSE MDM/ED COURSE: This note was generated with voice recognition software and may contain errors including spelling, grammar, syntax, and misrecognization of what was dictated Chief Complaint Sinus pressure and congestion History of Present Illness Patient presents with complaints of acute onset facial pressure/pain accompanied by cloudy and discolored nasal mucus, sore throat, and cough for 7 days. Patient points to their maxillary sinuses as the source of their constant 6 out of 10 pressure. Only time has made their symptoms worse while nothing makes them better. Patient denies the use of any eqrz-imh-otieypy medications or home remedies prior to arrival for symptom management. Review of Systems 10 systems reviewed negative with exception of history of present illness listed above Physical Examination General: Alert and oriented, No acute distress. Eye: Pupils are equal, round and reactive to light. HENT: Normocephalic Neck: Supple Musculoskeletal: Normal range of motion, normal strength, no tenderness, no swelling. Integumentary: Eva, warm, dry, and Intact. Neurologic: Alert, Oriented, Normal sensory, Normal motor function. Cognition and Speech: Oriented, Speech clear and coherent. Psychiatric: Cooperative, Appropriate mood & affect. Impression and Plan Course: Worsening Plan: Patient will be discharged home with oral antibiotics, instructed to use appropriate over the counter medications for symptom management, and is instructed to follow-up with their primary care provider in 3-5 days for any increase in severity of symptoms or any additional concerns. Patient agrees with plan of care, questions were encouraged and answered. Patient Instructions: Sinusitis CLINICAL IMPRESSION Diagnosis/Annotatio n: ED Dx Name:Acute maxillary sinusitis Code:J01.00 Disposition: discharged Type: home ATTESTATION CRITICAL CARE TIME Is this a critically ill patient: no Electronic Signatures: Ehsan Price (MARKETING RESEARCH INTERN-CREDIT BALANCE SPECIALIST) (Signed 20-Aug-2021 11:51) Authored: HPI, PMH, PE, Results/Vital Signs, MDM/ED Course, Clinical Impression, Attestation, Chart Review, Scores Last Updated: 20-Aug-2021 11:51 by Ehsan Price (MARKETING RESEARCH INTERN-CREDIT BALANCE SPECIALIST) Merged With [facility] Provider Note - ED v2on Provider Note - ED v2 Provider Note - ED v2: Chart Review: ED NOTES ED NOTES: Patient reports bilateral ear pain. Patient states excessive cerumen normally. Patient denies any other symptoms at this time. HISTORY OF PRESENTING ILLNESS GENEVIEVE is a 25 year old Female and was seen by me at 20-May-2021 13:20. The historian is the patient. Triage Information: Most recent Vital Sign Value Date PAST MEDICAL HISTORY ATTESTATION: I have reviewed and confirmed nurse's/medic's notes for patient's medications, allergies, and medical, surgical, family and social history PSYCHOSOCIAL SCREENING: NO: concerns for safety at home, feelings of depression, feels like hurting others and feels like hurting self ALLERGIES/INTOLERAN JULEE: No Known Allergies HEALTH HISTORY: No documented data. OUTPATIENT MEDICATIONS: Home Medications Review Status for Reconciliation: Complete Med Status: Patient Currently Takes Medications Drug Name: carBAMazepine 100 mg oral tablet, extended release Instructions: 1 tab(s) orally 2 times a day Drug Name: spironolactone 25 mg oral tablet Instructions: 1 tab(s) orally 2 times a day Drug Name: doxycycline 20 mg oral tablet Instructions: 1 tab(s) orally every 12 hours Drug Name: neomycin/polymyxin B/hydrocortisone 0.35%-10,000 units/mL-1% otic solution Instructions: 2 drop(s) in each affected ear 4 times a day SIGNIFICANT EVENTS: Past Medical History Description:Seizure Disorder [employer]: Is : no Is : no REVIEW OF SYSTEMS ENMT Ears: POSITIVE for: hearing disturbance and pain All other systems reviewed and are negative RESULTS/VITAL SIGNS VITAL SIGNS: T PRBP SpO2O2(LPM) %FiO2 Method 20-May-2021 13:06:[id number] PHYSICAL EXAM CONSTITUTIONAL: Well appearing, well nourished, awake, alert, oriented to person, place, time/situation and in no apparent distress. HENMT: Airway patent, ears impacted with cerumen. Nasal mucosa clear. Mouth with normal mucosa. Throat has no vesicles, no oropharyngeal exudates and uvula is midline. Face with no lymph node enlargement. NEUROLOGICAL: Alert and oriented, no focal deficits, no motor or sensory deficits. PSYCHIATRIC: Alert and oriented to person, place, time/situation. normal mood and affect. No apparent risk to self or others. CLINICAL IMPRESSION Diagnosis/Annotatio n: ED Dx Name:Cerumen impaction Code:H61.20 Disposition: discharged Type: home ATTESTATION Comments/Additional Findings: Ear lavage provided bilateral ears. Complete removal of cerumen impaction, visualization of the tympanic membrane observed. Patient was prescribed antibiotic eardrops for 7 days. Patient agreeable to this plan. CRITICAL CARE TIME Is this a critically ill patient: no Electronic Signatures: Arelis Braga (MARKETING RESEARCH INTERN-CREDIT BALANCE SPECIALIST) (Signed 20-May-2021 13:24) Authored: ED Notes, HPI, PMH, ROS, PE, Results/Vital Signs, Clinical Impression, Attestation, Chart Review, Scores Last Updated: 20-May-2021 13:24 by Arelis Braga (MARKETING RESEARCH INTERN-CREDIT BALANCE SPECIALIST) Normal [facility] CORONAVIRUS 2019 BY PCRon SARS-CoV-2 (COVID-19) RNA LANEY+probe Ql (Unsp spec) Not detected Normal Not Detected [facility] Comment on above: Result Comment: . This assay is designed to detect the N, ORF1ab and/or S genes of SARS-CoV-2 via nucleic acid amplification. A Negative (NOT DETECTED) result does not preclude 2019-nCoV infection since the adequacy of sample collection and/or low viral burden may result in presence of viral nucleic acids below the clinical sensitivity of this test method. Negative (NOT DETECTED) result should not be used as the sole basis for treatment or other patient management decisions. Rather negative results should be combined with clinical observations, patient history, and epidemiological information to make patient management decisions. Fact sheet for providers: https://www.fda.gov/media/226065/download Fact sheet for patients: https://www.fda.gov/media/605502/download This test has received FDA Emergency Use Authorization (EUA) and has been verified by [facility] ([facility]). This test is only authorized for the duration of time that circumstances exist to justify the authorization of the emergency use of in vitro diagnostic tests for the detection of SARS-CoV-2 virus and/or diagnosis of COVID-19 infection under section 564(b)(1) of the Act, 21 U.S.C. 360bbb-3(b)(1), unless the authorization is terminated or revoked sooner. [facility] is certified under CLIA-88 as qualified to perform high complexity testing. Testing is performed in the [facility] laboratories located at [address] [place] [address]. Performed By: #### C OV19 #### [address] [place] [address] Covid 19 Resultson 1 SARS-CoV-2 (COVID-19) RNA LANEY+probe Ql (Unsp spec) NEGATIVE COVID-19 Test Coronaviruses are common world-wide and are the cause of many common colds. SARS-COV2 is a new coronavirus that began circulating worldwide in 2019 so we are calling it COVID-19. It has been estimated that four out of five patients with COVID-19 will recover at home without the need for medical attention. Symptoms of COVID-19 include cough, fever, shortness of breath, loss of taste or smell and other flu-like symptoms including chills, sore muscles, sore throat, and headache. Severe illness is more common in older people and people with other health problems such as high blood pressure, obesity, and immune system problems. If the test is positive, you have COVID-19. You will be contacted by the ordering physicians office and instructed to remain on home isolation, in accordance with CDC guidelines. You may also be contacted by the [facility] to see if any of your close contacts may have been exposed to the virus and need to quarantine. If the test is negative, you likely do not have COVID-19 at this time, but you still may have a different illness that can spread to other people (like Influenza, or the Flu) and could still be at risk for getting COVID-19. We recommend that you stay away from other people to limit the spread of illness until your symptoms are improving and you are fever-free for 24 hours without the use of fever lowering medications such as acetaminophen or ibuprofen. No test is 100% accurate so if you are still concerned you may have COVID-19, talk to your doctor about the need to continue to stay away from others. Medicines Acetaminophen (Tylenol and others) is generally safe. Anti-inflammatory medications, such as Ibuprofen (Advil or Motrin) or Naproxen (Aleve) can also be used. Zotd-jtu-jbiwyth cough and cold medicines can be used according to the instructions on the package. Some ighx-dyr-ieolqub medicines also contain acetaminophen. Make sure you are not taking more than your recommended dose For those not hospitalized, there is no specific treatment available for this illness. Antibiotics do not treat Coronaviruses. Follow-Up Follow up with your doctor by scheduling a virtual visit or consider follow-up at one of our urgent care fever clinics. If you are having difficulty breathing, or are very weak and having difficulty standing, this is a medical emergency. Call 911 or have someone take you to the nearest emergency room immediately. If possible, wear a facemask. Additional guidance from the CDC for patients who tested POSITIVE for COVID-19 How to isolate: Isolate yourself in a specific room at home and limit your contact with others. Use a separate bathroom from other members of the household, when possible. Leave home only to get essential medical care. Do not go to work, school or public areas. Avoid using public transportation, ride-sharing, or taxis. Restrict contact with pets and other animals. If you must care for your pet or be around animals while you are sick, wash your hands before and after your interaction and wear a facemask. Make sure that shared spaces in the home have good airflow, such as by an air conditioner or an opened window, weather permitting. Personal Hygiene Procedures: Wear a face mask when in the same room as other people or pets. If a face mask interferes with your breathing, others should wear a mask when sharing space with you. Frequent hand-washing: wash your hands with soap and water for at least 20 seconds. If soap and water are not available, use alcohol-based hand boat hand. Avoid touching your eyes, nose, and mouth with unwashed hands. Household Hygiene Procedures: Avoid sharing personal household items such as dishes, glassware, cups, eating utensils, towels or bedding with other people or pets in your home. After use, these items should be washed with soap and hot water. Disinfect all high-touch surfaces every day with antibacterial cleaning solutions such as Lysol wipes, bleach, cleansers, etc. High-touch surfaces include tabletops, doorknobs, bathroom fixtures, toilets, phones, keyboards, tablets and bedside tables. Immediately clean any surfaces that may have blood, poop or body fluids on them, using antibacterial cleaning solutions such as Lysol wipes, bleach, cleansers, etc. If clothing or bedding come into contact with blood, poop or body fluids, they should be washed immediately. Follow the directions on the laundry detergent and clothing labels but hot water is recommended when possible. Stopping home isolation precautions: If possible, consult your doctor before stopping home isolation precautions. According to the CDC, you can discontinue home isolation precautions when you have met both of these criteria: Your fever and respiratory symptoms have been gone for 24 hours without the use of any medicines like ibuprofen (Motrin) (more content not included)... Normal [facility] CORONAVIRUS 2019 BY PCRon DATE OF SYMPTOM ONSET [YYYYMMDD]? [id number] Merged With [facility] Comment on above: Performed By: #### C OV19 #### [facility] [address] [place] [address] Lab Specimen Source Nasal, Nasopharyngeal [facility] Comment on above: Performed By: #### C OV19 #### [facility] [address] [place] [address] Provider Note - ED v2on 03-0 Provider Note - ED v2 Provider Note - ED v2: Chart Review: HISTORY OF PRESENTING ILLNESS GENEVIEVE is a 25 year old Female and was seen by me at 21-Nov-2020 11:44. Triage Information: Most recent Vital Sign Value Date PAST MEDICAL HISTORY ATTESTATION: I have reviewed and confirmed nurse's/medic's notes for patient's medications, allergies, and medical, surgical, family and social history ALLERGIES/INTOLERAN JULEE: No Known Allergies HEALTH HISTORY: No documented data. OUTPATIENT MEDICATIONS: Home Medications Review Status for Reconciliation: Incomplete Med Status: Patient Currently Takes Medications Drug Name: carBAMazepine 100 mg oral tablet, extended release Instructions: 1 tab(s) orally 2 times a day Drug Name: spironolactone 25 mg oral tablet Instructions: 1 tab(s) orally 2 times a day Drug Name: doxycycline 20 mg oral tablet Instructions: 1 tab(s) orally every 12 hours Drug Name: amoxicillin 500 mg oral capsule Instructions: 1 cap(s) orally 2 times a day Drug Name: Zithromax Z-Milind 250 mg oral tablet Instructions: as directed on package SIGNIFICANT EVENTS: Past Medical History Description:Seizure Disorder [employer] REPA[employer]ER: Is : no Is : no MEDICAL DECISION MAKING/ED COURSE MDM/ED COURSE: This note was generated with voice recognition software and may contain errors including spelling, grammar, syntax, and misrecognization of what was dictated Chief Complaint Persisting cough History of Present Illness Patient presents in no apparent distress with persisting symptoms for greater than 10 days. Patient states she was seen here last week Monday given amoxicillin for sore throat and headache but her cough has persisted and she still has a sore throat and headache at times. Patient denies use of any mtxh-iip-mabfivv medications or home remedies prior trouble for symptom management. Review of Systems 10 systems reviewed negative with exception of history of present illness listed above Physical Examination General: Alert and oriented, No acute distress. Eye: Pupils are equal, round and reactive. HENT: Normocephalic Neck: Supple, Non-tender, No lymphadenopathy. Respiratory: Respirations are non-labored, Symmetrical chest wall expansion, Lungs are clear to auscultation, Breath sounds are equal Cardiovascular: Normal rate, Regular rhythm. Gastrointestinal: Soft, non-tender, non-distended Musculoskeletal: Normal range of motion, normal strength, no tenderness, no swelling. Integumentary: Eva, warm, dry, and Intact. Neurologic: Alert, Oriented, Normal sensory, Normal motor function. Cognition and Speech: Oriented, Speech clear and coherent. Psychiatric: Cooperative, Appropriate mood & affect. Medical Decision Making Course: Unchanged Problem: Cough Data reviewed/analyzed: Patient's previous note was reviewed Risk: Low Problems addressed: Patient will be discharged home with azithromycin and instructed to use bfeu-bfj-hdymymb medications for symptom management. Patient agrees a plan of care, questions are encouraged and answered. Education: Bronchitis CLINICAL IMPRESSION Diagnosis/Annotatio n: ED Dx Name:Acute bronchitis Code:J20.9 Disposition: discharged Type: home ATTESTATION CRITICAL CARE TIME Is this a critically ill patient: no Electronic Signatures: Ehsan Price (MARKETING RESEARCH INTERN-CREDIT BALANCE SPECIALIST) (Signed 21-Nov-2020 12:18) Authored: HPI, PMH, PE, MDM/ED Course, Clinical Impression, Attestation, Chart Review, Scores Last Updated: 21-Nov-2020 12:18 by Ehsan Price (MARKETING RESEARCH INTERN-CREDIT BALANCE SPECIALIST) Merged With [facility] Provider Note - ED v2on 10-20 Provider Note - ED v2 Provider Note - ED v2: Chart Review: ED NOTES ED NOTES: patient presents with c/o headache and sore throat. She states it is very painful to swallow. Denies any sick contacts or any other symptoms. HISTORY OF PRESENTING ILLNESS GENEVIEVE is a 25 year old Female and was seen by me at 14-Nov-2020 10:42. The historian is the patient. Triage Information: Most recent Vital Sign Value Date PAST MEDICAL HISTORY ATTESTATION: I have reviewed and confirmed nurse's/medic's notes for patient's medications, allergies, and medical, surgical, family and social history PSYCHOSOCIAL SCREENING: NO: concerns for safety at home, feelings of depression, feels like hurting others and feels like hurting self ALLERGIES/INTOLERAN JULEE: No Known Allergies HEALTH HISTORY: No documented data. OUTPATIENT MEDICATIONS: Home Medications Review Status for Reconciliation: Complete Med Status: Patient Currently Takes Medications Drug Name: carBAMazepine 100 mg oral tablet, extended release Instructions: 1 tab(s) orally 2 times a day Drug Name: spironolactone 25 mg oral tablet Instructions: 1 tab(s) orally 2 times a day Drug Name: doxycycline 20 mg oral tablet Instructions: 1 tab(s) orally every 12 hours SIGNIFICANT EVENTS: Past Medical History Description:Seizure Disorder [employer] RE[employer]ER: Is : no Is : no REVIEW OF SYSTEMS ENMT Throat/Neck: POSITIVE for: throat pain Negative for: swollen glands RESPIRATORY: Negative for: cough NEUROLOGICAL: POSITIVE for: headache; All other systems reviewed and are negative PHYSICAL EXAM CONSTITUTIONAL: Well appearing, well nourished, awake, alert, oriented to person, place, time/situation and in no apparent distress. HENMT: Airway patent, Mouth with normal mucosa. Throat has erythema, no oropharyngeal exudates and uvula is midline. Face with no lymph node enlargement. EYES: pupils are accommodating CARDIOVASCULAR: Normal rate, regular rhythm. RESPIRATORY: Breath sounds clear and equal bilaterally and unlabored. no Rales rhonchi or crackles. MUSCULOSKELETAL: Spine appears normal, range of motion is not limited, no muscle or joint tenderness. NEUROLOGICAL: Alert and oriented, no focal deficits, no motor or sensory deficits. SKIN: Skin normal color for race, warm, dry and intact. No evidence of trauma. PSYCHIATRIC: Alert and oriented to person, place, time/situation. normal mood and affect. No apparent risk to self or others. HEME/LYMPH: No cervical adenopathy. CLINICAL IMPRESSION Diagnosis/Annotatio n: ED Dx Name:Sore throat Code:J02.9 Disposition: discharged ATTESTATION Comments/Additional Findings: Patient was prescribed oral antibiotic for suspected strep throat. Patient educated on medication uses, she verbalizes understanding. CRITICAL CARE TIME Is this a critically ill patient: no Electronic Signatures: Arelis Braga (MARKETING RESEARCH INTERN-CREDIT BALANCE SPECIALIST) (Signed 14-Nov-2020 10:45) Authored: ED Notes, HPI, PMH, ROS, PE, Clinical Impression, Attestation, Chart Review, Scores Last Updated: 14-Nov-2020 10:45 by Arelis Braga (MARKETING RESEARCH INTERN-CREDIT BALANCE SPECIALIST) Merged With [facility] Provider Note - ED v2on 08-18 Provider Note - ED v2 Provider Note - ED v2: Chart Review: HISTORY OF PRESENTING ILLNESS GENEVIEVE is a 25 year old Female and was seen by me at 01-Sep-2020 09:58 for a chief complaint of ear hearing change. Other complaints include: Patient presents as her hearing is diminishing and her ears feel full. she reports her ears chronically become impacted with cerumen. She has tried home interventions in the passed but were not successful. She denies any fever, chills, nausea, vomiting, dizziness or pain. She has not taken anything over the counter for this concern. . The historian is the patient. Triage Information: Most recent Vital Sign Value Date PAST MEDICAL HISTORY ATTESTATION: I have reviewed and confirmed nurse's/medic's notes for patient's medications, allergies, and medical, surgical, family and social history CURRENT OR FORMER SUBSTANCE USE: NO: Cigarette/Tobacco, e-Cigarette/Vaping, Alcohol and Street Drugs ALLERGIES/INTOLERAN JULEE: No Known Allergies HEALTH HISTORY: No documented data. OUTPATIENT MEDICATIONS: Home Medications Review Status for Reconciliation: Incomplete Med Status: Incomplete Medication History Drug Name: carBAMazepine 100 mg oral tablet, extended release Instructions: 1 tab(s) orally 2 times a day Drug Name: spironolactone 25 mg oral tablet Instructions: 1 tab(s) orally 2 times a day Drug Name: doxycycline 20 mg oral tablet Instructions: 1 tab(s) orally every 12 hours Drug Name: neomycin/polymyxin B/hydrocortisone 0.35%-10,000 units/mL-1% otic solution Instructions: 2 drop(s) in each affected ear 4 times a day SIGNIFICANT EVENTS: Past Medical History Description:Seizure Disorder [employer] REPAIRER: Is : no Is : no REVIEW OF SYSTEMS CONSTITUTIONAL: Negative for: anorexia, chills, fever and malaise ENMT Ears: POSITIVE for: hearing disturbance Negative for: pain and tinnitus Nose: Negative for: congestion and discharge All other systems reviewed and are negative RESULTS/VITAL SIGNS VITAL SIGNS: T PRBP SpO2O2(LPM) %FiO2 Method 01-Sep-2020 09:28:[id number] PHYSICAL EXAM CONSTITUTIONAL: Well appearing, well nourished, awake, alert, oriented to person, place, time/situation and in no apparent distress. HENMT: ears with Dark brown cerumen in meatus bilaterally. no lymph nodes enlarged. no pain with palpation. MEDICAL DECISION MAKING/ED COURSE MDM/ED COURSE: 25-year-old female with cerumen impaction bilaterally. Both ears were flushed with lukewarm water. Chunks of dark brown cerumen evacuated from both ears. Tympanic membrane was visualized and is pearly broussard with visible landmarks. Ear canals were reddened by the process. Patient verbalized she was able to hear and the pressure and fullness was relieved. Written education provided about cerumen impaction and irrigation. Encouraged patient that the irritation from the irrigation will result in a few hours. Patient verbalized understanding of plan of care. CLINICAL IMPRESSION Diagnosis/Annotatio n: ED Dx Name:Hearing loss due to cerumen impaction Code:H61.20 Disposition: discharged Type: home ATTESTATION CRITICAL CARE TIME Is this a critically ill patient: no Electronic Signatures: Jessica Antonio (MARKETING RESEARCH INTERN-CREDIT BALANCE SPECIALIST) (Signed 01-Sep-2020 10:06) Authored: HPI, PMH, ROS, PE, Results/Vital Signs, MDM/ED Course, Clinical Impression, Attestation, Chart Review, Scores Last Updated: 01-Sep-2020 10:06 by Jessica Antonio (MARKETING RESEARCH INTERN-CREDIT BALANCE SPECIALIST) Merged With [facility] Office Visit: UC: dom in pactionon 07-04-2017 Documentation of current medications (procedure) Done Invalid Interpretation Code [facility] Work Phone: Fall risk assessment No Invalid Interpretation Code [facility] Work Phone: Protein mass conc Done Invalid Interpretation Code [facility] Work Phone: Tobacco smoking status NHIS Never Invalid Interpretation Code [facility] Work Phone: Tobacco smoking status NHIS Never smoker Invalid Interpretation Code [facility] Work Phone: Tobacco use [facility] Never smoker Invalid Interpretation Code [facility] Work Phone: Office Visit: UC: ear painon 03-14-2017 Documentation of current medications (procedure) Done Invalid Interpretation Code [employer] Work Phone: Fall risk assessment No [employer] Work Phone: Protein mass conc Done [employer] Work Phone: Tobacco smoking status NHIS Never smoker [employer] Work Phone: Tobacco use [facility] Never smoker Invalid Interpretation Code [employer] Work Phone: Vital Signs Date Time Vital Sign Value Performing Clinician Facility 06-03-2025 12:57-0400 Body height 160 cm Topher Murry MD Work Phone: [facility] 06-03-2025 12:57-0400 Body mass index (BMI) [Ratio] 24.53 kg/m2 Topher Murry MD Work Phone: [facility] 06-03-2025 12:57-0400 Body weight 62.82 kg Topher Murry MD Work Phone: [facility] 06-03-2025 12:57-0400 Diastolic blood pressure 70 mm[Hg] Topher Murry MD Work Phone: [facility] 06-03-2025 12:57-0400 Systolic blood pressure 110 mm[Hg] Topher Murry MD Work Phone: [facility] 05-20-2025 14:53-0400 Body height 160 cm Topher Murry MD Work Phone: [facility] 05-20-2025 14:53-0400 Body mass index (BMI) [Ratio] 24.76 kg/m2 Topher Murry MD Work Phone: [facility] 05-20-2025 14:53-0400 Body weight 63.41 kg Topher Murry MD Work Phone: [facility] 05-20-2025 14:53-0400 Diastolic blood pressure 70 mm[Hg] Topher Murry MD Work Phone: [facility] 05-20-2025 14:53-0400 Systolic blood pressure 136 mm[Hg] Topher Murry MD Work Phone: [facility] 04-23-2025 13:44-0400 Body height 160 cm Marlen Heck MD Work Phone: [facility] 04-23-2025 13:44-0400 Body mass index (BMI) [Ratio] 24.16 kg/m2 Marlen Heck MD Work Phone: [facility] 04-23-2025 13:44-0400 Body weight 61.87 kg Marlen Heck MD Work Phone: [facility] 04-23-2025 13:44-0400 Diastolic blood pressure 68 mm[Hg] Marlen Heck MD Work Phone: [facility] 04-23-2025 13:44-0400 Systolic blood pressure 102 mm[Hg] Marlen Heck MD Work Phone: [facility] 05-06-2024 14:52-0400 Body height 160 cm Brittni Chungt SALES RECORD CLERK Work Phone: [facility] 05-06-2024 14:52-0400 Body mass index (BMI) [Ratio] 25.24 kg/m2 Brittni Chungt SALES RECORD CLERK Work Phone: [facility] 05-06-2024 14:52-0400 Body weight 64.64 kg Brittni Chungt SALES RECORD CLERK Work Phone: [facility] 05-06-2024 14:52-0400 Diastolic blood pressure 78 mm[Hg] Brittni Chungt SALES RECORD CLERK Work Phone: [facility] 05-06-2024 14:52-0400 Heart rate 66 /min Brittni Chungt SALES RECORD CLERK Work Phone: [facility] 05-06-2024 14:52-0400 SaO2% (BldA) [Mass fraction] 98 % Brittni Chungt SALES RECORD CLERK Work Phone: [facility] 05-06-2024 14:52-0400 Systolic blood pressure 126 mm[Hg] Brittni Chungt SALES RECORD CLERK Work Phone: [facility] 11-10-2022 20:10-0500 Diastolic blood pressure 73 mm[Hg] Dr. Jose Gary Work Phone: [facility] 11-10-2022 20:10-0500 Heart rate 69 /min Dr. Jose Gary Work Phone: [facility] 11-10-2022 20:10-0500 Respiratory rate 18 /min Dr. Jose Gary Work Phone: [facility] 11-10-2022 20:10-0500 SaO2% (BldA) [Mass fraction] 98 % Dr. Jose Gary Work Phone: [facility] 11-10-2022 20:10-0500 Systolic blood pressure 128 mm[Hg] Dr. Jose Gary Work Phone: [facility] 11-10-2022 18:52-0500 Body height 160.[address] Jose Gary Work Phone: [facility] 11-10-2022 18:52-0500 Body mass index (BMI) [Ratio] 26.2 kg/m2 Dr. Jose Gary Work Phone: [facility] 11-10-2022 18:52-0500 Body temperature 98.4 [degF] Dr. Jose Gary Work Phone: [facility] 11-10-2022 18:52-0500 Body weight 67.[address] Jose Gary Work Phone: [facility] 09-22-2022 14:07-0500 Body temperature 98.4 [degF] Dr. Jose aGry Work Phone: [facility] 09-22-2022 14:07-0500 Diastolic blood pressure 64 mm[Hg] Dr. Jose Gary Work Phone: [facility] 09-22-2022 14:07-0500 Heart rate 71 /min Dr. Jose aGry Work Phone: [facility] 09-22-2022 14:07-0500 Respiratory rate 14 /min Dr. Jose Gary Work Phone: [facility] 09-22-2022 14:07-0500 SaO2% (BldA) [Mass fraction] 97 % Dr. Jose Gary Work Phone: [facility] 09-22-2022 14:07-0500 Systolic blood pressure 116 mm[Hg] Dr. Jose Gary Work Phone: [facility] 08-20-2021 13:45-0500 Body height 160 cm Jose Gary Other Phone: [facility] 08-20-2021 13:45-0500 Body temperature 97.16 [degF] Jose Gary Other Phone: [facility] 08-20-2021 13:45-0500 Diastolic blood pressure 74 mm[Hg] Jose Gary Other Phone: [facility] 08-20-2021 13:45-0500 Heart rate 66 /min Jose Gary Other Phone: [facility] 08-20-2021 13:45-0500 SaO2% (BldA) [Mass fraction] 95 % Jose Gary Other Phone: [facility] 08-20-2021 13:45-0500 Systolic blood pressure 114 mm[Hg] Jose Gary Other Phone: [facility] 07-04-2017 13:39-0400 BMI (Body Mass Index) 22.49 kg/m2 Sina HARTLEY [facility] Work Phone: 07-04-2017 13:39-0400 Body Temperature 98.4 [degF] Sina HARTLEY [facility] Work Phone: 07-04-2017 13:39-0400 BP Diastolic 64 mm[Hg] Sina HARTLEY [facility] Work Phone: 07-04-2017 13:39-0400 BP Systolic 98 mm[Hg] Sina Barboza PA [facility] Work Phone: 07-04-2017 13:39-0400 Height 160.02 cm Sina HARTLEY [facility] Work Phone: 07-04-2017 13:39-0400 Pulse (Heart Rate) 56 /min Sina HARTLEY [facility] Work Phone: 07-04-2017 13:39-0400 Respiratory Rate 12 /min Sina HARTLEY [facility] Work Phone: 07-04-2017 13:39-0400 Weight 57.61 kg Sina HARTLEY [facility] Work Phone: 03-14-2017 09:57-0400 BMI (Body Mass Index) 24.87 kg/m2 [facility] Work Phone: 03-14-2017 09:57-0400 Body Temperature 98.8 [degF] Tawny Piña [place] [employer] [facility] Work Phone: 03-14-2017 09:57-0400 BP Diastolic 78 mm[Hg] Tawny Piña [place] [employer] [facility] Work Phone: 03-14-2017 09:57-0400 BP Systolic 112 mm[Hg] [facility] [employer] [facility] Work Phone: 03-14-2017 09:57-0400 Height 160.02 [facility] [employer] [facility] Work Phone: 03-14-2017 09:57-0400 Pulse (Heart Rate) 49 /min Tawny Piña [facility] [employer] [facility] Work Phone: 03-14-2017 09:57-0400 Pulse Oximetry 99 % [facility] [employer] [facility] Work Phone: 03-14-2017 09:57-0400 Respiratory Rate 14 /min [facility] [employer] [facility] Work Phone: 03-14-2017 09:57-0400 Weight 63.69 kg [facility] [employer] [facility] Work Phone: Encounters Encounter Date Encounter Type Care Provider Facility Start: 06-28-2025 End: 06-28-2025 ambulatory [facility] Start: 06-27-2025 End: 06-27-2025 ambulatory [facility] Facility:[facility] Start: 06-24-2025 End: 06-24-2025 ambulatory [facility] Start: 06-04-2025 Encounter for genera l adult medical examination without abnormal findings [facility] Start: 06-03-2025 End: 06-03-2025 Office outpatient visit 15 minutes Topher Murry MD Work Phone[facility] Comment on above: 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) Start: 06-03-2025 End: 06-03-2025 ambulatory [facility] Start: 05-27-2025 End: 05-27-2025 ambulatory Zebulun Beam [facility] Facility:[facility] Start: 05-20-2025 End: 05-20-2025 Patient encounter procedure Topher Murry MD Work Phone: [facility] Comment on above: test negat [place]; LGSIL on Pap smear of cervix Start: 05-20-2025 End: 05-20-2025 ambulatory [facility] Start: 04-23-2025 End: 04-23-2025 Office outpatient visit 25 minutes Marlen Heck MD Work Phone: [facility] Comment on above: Encounter for gyneco logical examination without abnormal finding (Primary Dx); Screening for cervical cancer; Screening examination for STI Start: 04-23-2025 End: 04-23-2025 Patient encounter status Marlen Heck MD Work Phone: [facility] Work Phone: Start: 04-23-2025 End: 04-23-[address] [facility] Amb[facility] Start: 04-23-2025 End: 04-23-2025 Encounter for gynecological examination (general) (routine) without abnormal findings [facility] Start: 04-18-2025 End: 05-08-2025 ambulatory Cyndie Gillespie Facility:[facility] Start: 04-17-2025 ambulatory Cyndie Gillespie [facility] Start: 03-27-2025 ambulatory Cyndie Gillespie [facility] Start: 03-27-2025 End: 04-17-2025 ambulatory Zebulun Beam [facility] Facility:[facility] Start: 11-23-2024 End: 11-23-2024 ambulatory Zebulun Beam [facility]SC Facility:[facility] Start: 10-16-2024 End: 10-16-2024 ambulatory Zebulun Beam VSC Facility:[facility] Start: 08-01-2024 End: 08-01-2024 ambulatory TOPHER SHIN Facility:[facility] Start: 08-01-2024 End: 08-01-2024 Patient encounter procedure Topher Waterssai OD Work Phone: Optometry Comment on above: Myopia of both eyes (Primary Dx); Regular astigmatism of both eyes Start: 05-06-2024 End: 05-06-2024 Office outpatient visit 15 minutes Brittni Parada SALES RECORD CLERK Work Phone: 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 Start: 05-06-2024 End: 05-06-2024 Bamboo flowsheet Brittni Parada SALES RECORD CLERK Work Phone: [facility] Start: 03-13-2024 End: 03-13-[address] [facility] Start: 03-13-2024 End: 03-13-2024 Encounter for gynecological examination (general) (routine) without abnormal findings [facility] Start: 11-10-2022 End: 11-10-2022 Emergency department patient visit Dr. Jose Gary Work Phone: [facility] Start: 09-22-2022 End: 09-22-[address] 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) Start: 08-20-2021 End: 08-20-2021 Emergency department patient visit Ehsan Price [facility] Start: 11-15-2018 Patient encounter procedure Facility:[id number] Start: 02-14-2018 Patient encounter procedure Facility:[id number] Start: 07-21-2015 Repair arterial blockage Mckinley bernstein II, OD Work Phone: [facility] Work Phone: Procedures Date Procedure Procedure Detail Performing Clinician Start: 05-20-2025 COLPOSCOPY Topher Sadler MD Work Phone: Start: 05-20-2025 Urine test visual color cmprsn meths Topher Murry MD Work Phone: Start: 04-23-2025 Microscopic observat ion [Identifier] in Cervix by Cyto stain Topher Murry MD Work Phone: Start: 03-13-2024 Microscopic observat ion [Identifier] in Cervix by Cyto stain Marlen Heck MD Work Phone: Start: 03-14-2017 End: 03-14-2017 Removal impacted cerumen instrumentation unilat Sina HARTLEY Work Phone: Start: 03-14-2017 End: 03-14-2017 Remove impacted ear wax Sina HARTLEY Work Phone: Plan of Treatment Date Care Activity Detail Author Start: 2045 Zoster Vaccines (1 o f 2) Zoster Vaccines (1 of 2) [facility] Start: 05-17-2034 DTaP/Tdap/Td Vaccine s (7 - Td or Tdap) DTaP/Tdap/Td Vaccines (7 - Td or Tdap) [facility] Start: 05-17-2034 Urine microalbumin profile DTaP,Tdap,Td Vaccine (7 - Td or Tdap) [facility] Start: 04-23-2030 Screening for malign ant neoplasm of cervix HPV/Cotest [facility] Start: 03-13-2029 Screening for malign ant neoplasm of cervix HPV/Cotest [facility] Start: 04-23-2028 Screening for malign ant neoplasm of cervix [facility] Start: 03-13-2027 Screening for malign ant neoplasm of cervix [facility] Start: 04-29-2026 End: 04-29-2026 Patient encounter procedure 04/29/2026 1:40 PM EDT Office Visit [address] [place] [address] Marlen Heck MD [address] [place] [address] [facility] Start: 12-03-2025 End: 12-03-2025 Patient encounter procedure 12/03/2025 1:30 PM EDT Office Visit [place] [phone] Topher Murry MD [address] [place] [address] Physician [place] [id number] [facility] Start: 06-03-2025 End: 06-03-2025 Patient encounter procedure 06/03/2025 1:00 PM EDT Office Visit [address] [phone] Topher Murry MD [address] [place] [address] Physician [place] [id number] [facility] Start: 05-20-2025 End: 05-20-2026 [facility] Work Phone: Comment on above: Expected: 05/20/2025 (Approximate), Expires: 05/20/2026 Start: 05-19-2025 COVID-19 Vaccine ( season) COVID-19 Vaccine ( season) [facility] Start: 05-19-2025 Influenza vaccination Influenza Vacc ine (#1) [facility] Start: 05-12-2025 End: 05-12-2025 Patient encounter procedure 05/12/2025 2:00 PM EDT Office Visit [facility] [address] [place] [address] Danial Malin MD [address] [place] [address] [facility] Start: 04-23-2025 End: 04-23-2026 Hepatitis C virus Ab [Presence] in Serum Hepatitis C Antibody Lab Routine Screening Examination For Sti Expected: 04/23/2025 (Approximate), Expires: 04/23/2026 [facility] Work Phone: Comment on above: Expected: 04/23/2025 (Approximate), Expires: 04/23/2026 Start: 04-23-2025 End: 04-23-2026 HIV 1+2 Ab+HIV1 p24 Ag [Presence] in Serum or Plasma by Immunoassay HIV 1/2 Antigen/Antibody Screen with Reflex to Confirmation Lab Routine Screening Examination For Sti Expected: 04/23/2025 (Approximate), Expires: 04/23/2026 [facility] Work Phone: Comment on above: Expected: 04/23/2025 (Approximate), Expires: 04/23/2026 Start: 04-23-2025 End: 04-23-2026 Treponema pallidum IgG+IgM Ab [Presence] in Serum by Immunoassay Syphilis Screen with Reflex Lab Routine Screening Examination For Sti Expected: 04/23/2025 (Approximate), Expires: 04/23/2026 [facility] Work Phone: Comment on above: Expected: 04/23/2025 (Approximate), Expires: 04/23/2026 Start: 03-14-2025 Yearly Adult Physical Yearly Adult P hysical [facility] Start: 05-19-2024 Covid-19 Vaccine ( season) Covid-19 Vaccine ( season) [facility] Start: 05-19-2024 Influenza vaccination Influenza Vacc ine (#1) [facility] Start: 05-06-2024 End: 05-06-2024 Patient encounter procedure 05/06/2024 4:00 PM EDT Office Visit [facility] [address] [place] [address] Brittni Parada NP [address] [place] [address] Arrived [facility] Comment on above: Arrived Start: 2022 HPV Vaccines (1 - 3-dose standard series) HPV Vaccines (1 - 3-dose standard series) [facility] Start: 05-19-2022 Influenza vaccination INFLUENZA (#1) [facility] Start: 07-04-2017 End: 07-04-2017 Appointment Appointment [facility] Work Phone: Start: 03-14-2017 End: 03-14-2017 Appointment [facility] Work Phone: Start: 2016 PAP TESTING PAP TESTING [facility] Start: 2014 Urine microalbumin profile DTAP,TDAP,TD (1 - Tdap) [facility] Start: 2013 Anxiety Screening Anxiety Screening [facility] Start: 2013 Depression Screening Depression Scre ening [facility] Start: 2013 Diabetes mellitus screening Diabetes Screening [facility] Start: 2013 HEPATITIS C SCREENING HEPATITIS C SC [facility] Start: 2013 HIV SCREENING HIV SCREENING [facility] Start: 2013 HIV screening HIV Screening [facility] Start: 2009 PEDS TO ADULT TRANSITION ANNUAL ASSESSMENT PEDS TO ADULT TRANSITION ANNUAL ASSESSMENT [facility] Start: 2007 Adult depression screening assessment DEPRESSION SCREENING [facility] Start: 2007 PEDS TO ADULT TRANSITION INITIAL DISCUSSION PEDS TO ADULT TRANSITION INITIAL DISCUSSION [facility] Start: 2006 HPV VACCINE (1 - 2-d ose series) HPV VACCINE (1 - 2-dose series) [facility] Start: 1995 COVID-19 VACCINE (#1) COVID-19 VACCI NE (#1) [facility] Start: 1995 Lipid panel Lipid Panel [facility] Cytology Cervical or vaginal smear or scraping study THINPREP PAP TEST Pathology and Cytology Routine Screening for cervical cancer Ordered: 04/23/2025 [facility] Work Phone: Comment on above: Ordered: 04/23/2025 Patient Education ED Abdominal P ain Unkn Cause Fem ED Endometriosis [facility] Work Phone: Patient referral [facility] Work Phone: Payers Date Payer Category Payer Self-pay [id number] 2023 Managed Care (Private) [facility] H[facility] [id number] 2022 Unknown 2022 Unknown [id number] 2021 Unknown [employer] [id number] 2021-Present [phone] [address] [place] [address] Indemnity [id number] 2016 Unknown [employer] [id number] 1995 Unknown [id number] [id number]. 356 1995 Unknown [id number] [id number]. 356 1995 Unknown [id number] [id number]. 1244 1995 Unknown [id number] 2.16.840.1.823348.3.579.2. 1245 1995 Unknown [id number] [id number]. 1259 1995 Unknown [id number] [id number]. 1244 1995 Unknown [id number] 2.840.1.791027.3.579.2. 1244 1995 Unknown [id number] 2.840.1.122487.3.579.2. 1244 Unknown [id number] Unknown [facility] [id number] Unknown [id number] [id number]. 462 Unknown [id number] 2.840.1.312032.3.579.2. 462 Unknown [id number] 2.840.1.218075.3.579.2. 462 Unknown [id number] 2.840.1.836145.3.579.2. 462 Unknown [id number] 2.840.1.794468.3.579.2. 462 Unknown [id number] 2.840.1.705574.3.579.2. 462 Unknown [id number] 2.840.1.635009.3.579.2. 462 Unknown [id number] 2.840.1.238583.3.579.2. 462 Unknown [id number] 2.840.1.099200.3.579.2. 462 Unknown [id number] [id number]. 462 Social History Date Type Detail Facility [facility] Start: 11-10-2022 Tobacco smokin g consumption unknown [facility] Start: 05-09-2012 End: 03-13-2024 Tobacco smoking status NHIS Never smoked tobacco [facility] Start: 05-09-2012 End: 03-13-2024 Tobacco use and exposure Smokeless tobacco non-user [facility] Start: 12-23-2021 End: 08-01-2024 Alcohol intake Current non-drinker of alcohol (finding) [facility] Start: 1995 [facility] At [facility] Start: 03-23-2023 End: 04-23-2025 History of Social function [facility] Start: 03-23-2023 End: 04-23-2025 Tobacco use panel [facility] Start: 08-12-2022 National Score (1-100), lower number is lower risk 57 [facility] Start: 12-21-2020 Gender identity Identifies as female gender (finding) [facility] Start: 12-21-2020 Sexual orientation Heterosexual (fin ding) [facility] Start: 04-18-2023 End: 05-06-2024 Alcoholic beverage intake Not Asked [facility] Start: 04-17-2023 Alcohol Comment Caffeine: coffee [facility] Start: 1995 Sex assigned at Not on file [facility] Start: 04-23-2025 End: 06-03-2025 Alcoholic beverage intake Current drinker of alcohol (finding) [facility] Work Phone: Within the last year , have you been afraid of your partner or ex-partner? No [facility] Work Phone: How often to you hav e a drink containing alcohol? Monthly or less [facility] Work Phone: How many standard drinks containing alcohol do you have on a typical day? 1 or 2 [facility] Work Phone: How often do you hav e 6 or more drinks on 1 occasion? Never [facility] Work Phone: Do you feel stress - tense, restless, nervous, or anxious, or unable to sleep at night because your mind is troubled all the time - these days [OSQ] To some extent [facility] Work Phone: NEGATED: Highlighted row [facility] Functional Status Date Assessment Result Facility 04-23-2025 Generalized anxiety disorder 7 item (ESTUARDO-7) [facility] Work Phone: 04-23-2025 [place] - suicide s everity rating scale screener - recent [C-SSRS] [facility] Work Phone: 04-23-2025 Total score [AUDIT-C] 1 04/23/20 25 1:44 PM EDT Kenia West MA [facility] Work Phone: 04-23-2025 Patient Health Quest ionnaire 2 item (PHQ-2) [Reported] [facility] Work Phone: [facility] Work Phone: Clinical Notes 03-19-2022 to 06-03-2025 Topher Murry MD - 06/03/2025 1:00 PM Jose Murry MD - 05/20/2025 2:45 PM Ashwin Heck MD - 04/23/2025 1:40 PM Topher Gutierres OD - 08/01/2024 1:17 PM EST Note Date & Type Note Facility 06-03-2025 History of Present illness Narrative Images from the original note were not included. Genevieve Schultz is a 29 y.o. year old female patient. PCP = No Assigned PCP Generic Provider, Chief Complaint Patient presents with Follow-up Follow up after colp. Pt states she had itching, odor, and discharge after colp, but has now seemed to be getting better HPI Presents to review the cervical biopsy results from last visit. She had some itching and discharge initially after the colposcopy which has now since resolved. OB History 0 Para 0 Term 0 0 AB 0 Living 0 SAB 0 IAB 0 Ectopic 0 Multiple 0 Live Births 0 Medical History[1] Surgical History[2] Review of Systems: Constitutional: No fever or chills Respiratory: No shortness of breath, or cough Cardiovascular: No chest pain or syncope Breasts: No breast pain, no masses, no nipple discharge Gastrointestinal: No nausea, vomiting, or diarrhea, no abdominal pain Genitourinary: No dysuria or frequency Gynecology: Negative except as noted in history of present illness All other: All other systems reviewed and negative for complaint Medication Documentation Review Audit Reviewed by Kenia West MA (Information Security Associate) on 06/03/25 at 1258 Medication Order Taking? Sig Documenting Provider Last Dose Status carBAMazepine XR (TEGretol XR) 400 mg 12 hr tablet [id number] Take 1 tablet (400 mg) by mouth 2 times a day. Do not crush, chew, or split. Historical Provider, Active sertraline (Zoloft) 25 mg tablet [id number] Take 1 tablet (25 mg) by mouth once daily. Historical Provider, Active spironolactone (Aldactone) 100 mg tablet [id number] Take 1 tablet (100 mg) by mouth once daily. Historical Provider, Active BP 110/70 Ht 1.6 m (5' 3) Wt 62.8 kg (138 lb 8 oz) LMP 06/02/2025 (Exact Date) BMI 24.53 kg/m PHYSICAL EXAMINATION: General: No acute distress Eye: Intraocular movements are intact HEENT: Normocephalic Respiratory: Respirations are nonlabored Gastrointestinal: Nondistended Musculoskeletal: Normal range of motion Neurologic: Alert and oriented x3 Psychiatric: Cooperative, appropriate mood and affect. Surgical Pathology Exam: [id number] Order: [id number] Collected 05/20/2025 15:46 Status: Final result Dx: LGSIL on Pap smear of cervix Test Result Released: Yes (seen) 0 Result Notes Component FINAL DIAGNOSIS A. CERVIX, BIOPSY: -- Squamous mucosa with low grade squamous intraepithelial lesion (LUCIANO 1) B. ENDOCERVIX, CURETTINGS: -- Minute degenerated squamous epithelium; no endocervical component is sampled at 1300 EDT Problem List Items Addressed This Visit None Visit Diagnoses LGSIL on Pap smear of cervix - Primary Provider Impression: 1. Mild dysplasia of the cervix Personally reviewed the path report showing Low-grade squamous intraepithelial lesion. Endocervical curetting is negative. Recommend close surveillance with Pap smear every 6 months for the next several years. [1] Past Medical History: Diagnosis Date LGSIL on Pap smear of cervix 04/23/2025 [2] Past Surgical History: Procedure Laterality Date COLPOSCOPY 05/20/2025 LGSIL documented in this encounter [facility] Work Phone: 05-20-2025 History of Present illness Narrative Associated Order(s): Colposcopy Post-Procedure Diagnose(s): LGSIL on Pap smear of cervix Images from the original note were not included. Patient ID: Genevieve Schultz is a 29 y.o. female. Chief Complaint Patient presents with Procedure Patient is here for colposcopy procedure. Last pap showed LGSIL. LMP: 05/07/25. BP 136/70 Ht 1.6 m (5' 3) Wt 63.4 kg (139 lb 12.8 oz) LMP 05/07/2025 (Exact Date) BMI 24.76 kg/m Colposcopy Date/Time: 05/20/2025 3:21 PM Performed by: Topher Murry MD Authorized by: Topher Murry MD Procedure location: cervix Consent: Patient questions answered: yes Consent obtained: Written Consent given by: Patient Indication: Cervical indication(s): high-risk HPV positive and cervical LSIL Pre-procedure: Speculum was placed in the vagina: yes Prep solution(s): acetic acid Procedure: Colposcopy with: cervical biopsy and endocervical curettage Biopsy taken: yes # of biopsies: 2 Biopsy location(s): 2:00, ECC Cervix visibility: fully visualized SCJ visibility: fully visualized Lesion visualized: fully visualized Acetowhite lesion(s): cervix Ferric subsulfate solution applied: yes Post-procedure: Patient tolerance of procedure: Patient tolerated the procedure well with no immediate complications Comments: Follow-up in 2 weeks to review cervical biopsy results. Results for orders placed or performed in visit on 05/20/25 (from the past 24 hours) POCT , urine manually resulted Result Value Ref Range Preg Test, Ur Negative Negative Certified Nurse Practitioner present for exam: Padmini Bee LPN OBGyrobert Exam Problem List Items Addressed This Visit None Visit Diagnoses test negative Relevant Orders POCT , urine manually resulted (Completed) LGSIL on Pap smear of cervix Relevant Orders Surgical Pathology Exam documented in this encounter [facility] Work Phone: 04-23-2025 History of Present illness Narrative Assessment/Plan: Genevieve Schultz is a 29 y.o. female who presents to clinic today to address the following issues: 1. Screening for cervical cancer THINPREP PAP TEST 2. Screening examination for STI HIV 1/2 Antigen/Antibody Screen with Reflex to Confirmation Hepatitis C Antibody Syphilis Screen with Reflex HIV 1/2 Antigen/Antibody Screen with Reflex to Confirmation Hepatitis C Antibody Syphilis Screen with Reflex 3. Encounter for gynecological examination without abnormal finding Routine well woman exam wnl. Pap ordered per patietn request and STD testing obtained. Pap smear: 03/13/25 ASCUS, HPV neg, repeat today per patient request Mammogram: n/a HIV Screen: neg 2023 Hep C Screen: neg 2023 DV: neg 04/2025 DEXA: NYI Problem List Items Addressed This Visit None Visit Diagnoses Screening for cervical cancer - Primary Relevant Orders THINPREP PAP TEST Screening examination for STI Relevant Orders HIV 1/2 Antigen/Antibody Screen with Reflex to Confirmation Hepatitis C Antibody Syphilis Screen with Reflex Encounter for gynecological examination without abnormal finding There are no Patient Instructions on file for this visit. Follow up: 1 year or sooner as needed Return precautions discussed. An After Visit Summary was given to the patient. All questions were answered and patient in agreement with plan. Subjective: Genevieve Schultz is a 29 y.o. female who presents to clinic today for No chief complaint on file. HPI: Gynecologic History: (Please complete obstetric history in the history tab) - Do you have any menstrual concerns? No - Do you have any breast concerns? no - Date of last pap smear: 02/2024 - Results of last pap smear, if known: ASCUS, HPV neg - Personal history of prior abnormal pap smear?: no - Date of last mammogram: n/a Sexual history (provider to ask): - Have you been sexually active within the past year? yes - What are the genders of your sexual partner(s)? male - Are you or your spouse/partner wanting to become or have children in the next year? no - If no, are you currently using any method to prevent :? condoms - Do you have any questions or concerns about contraceptive access? no - Do you have a personal history of sexually transmitted infections (STI)?: no - Have you ever been tested for HIV? yes - Do you want comprehensive STI testing today? yes Domestic Violence Screening (Provider to ask): Because violence is so common in many people's lives and because there is help available for those being abused, I now ask every patient about domestic violence: - Within the past year have you been hit, slapped, kicked or otherwise physically hurt by someone? no - Are you in a relationship with a person who threatens or physically hurts you? no - Has anyone forced you to have sexual activities that made you feel uncomfortable? no Review of Systems Objective: BP 102/68 Ht 1.6 m (5' 3) Wt 61.9 kg (136 lb 6.4 oz) LMP 04/12/2025 (Exact Date) BMI 24.16 kg/m Physical Exam Vitals and nursing note reviewed. Exam conducted with a newspaper vendor present. Constitutional: General: She is not in acute distress. Appearance: Normal appearance. HENT: Head: Normocephalic and atraumatic. Mouth/Throat: Mouth: Mucous membranes are moist. Eyes: General: No scleral icterus. Right eye: No discharge. Left eye: No discharge. Extraocular Movements: Extraocular movements intact. Conjunctiva/sclera: Conjunctivae normal. Pulmonary: Effort: Pulmonary effort is normal. No respiratory distress. Chest: Chest wall: No mass, lacerations or deformity. Breasts: Jose Score is 5. Breasts are symmetrical. Right: Normal. Left: Normal. Comments: Bilateral nipple piercings Abdominal: General: Abdomen is flat. There is no distension. Palpations: Abdomen is soft. Genitourinary: General: Normal vulva. Exam position: Supine. Pubic Area: No rash or pubic lice. Jose stage (genital): 5. Vagina: Normal. Cervix: Normal. Uterus: Normal. Adnexa: Right adnexa normal and left adnexa normal. Lymphadenopathy: Upper Body: Right upper body: No supraclavicular, axillary or pectoral adenopathy. Left upper body: No supraclavicular, axillary or pectoral adenopathy. Skin: General: Skin is warm and dry. Neurological: General: No focal deficit present. Mental Status: She is alert and oriented to person, place, and time. Psychiatric: Attention and Perception: Attention normal. Mood and Affect: Mood normal. Speech: Speech normal. Behavior: Behavior normal. Cognition and Memory: Cognition and memory normal. Judgment: Judgment normal. I spent 10 minutes in total time for this visit including all related clinical activities before, during, and after the visit excluding other billable activities/procedure time. Marlen Heck MD documented in this encounter [facility] Work Phone: 08-01-2024 Note HNO ID: [id number] Author: TOPHER SHIN OD Service: ? Author Type: PROJECT MANAGEMENT CONSULTANT Type: Progress Notes Filed: 08/01/2024 13:26 Note Text: ASSESSMENT/PLAN: 1. Myopia of both eyes - ICD9: 367.1, ICD10: H52.13 (primary diagnosis) 2. Regular astigmatism of both eyes - ICD9: 367.21, ICD10: H52.223 Good vision, comfort, and fit. Ok to order a year supply. Updated spectacle and contact lens prescriptions. Educated patient not to sleep or swim in contact lenses, and to immediately remove lenses with increase in pain, redness, or discharge. DVA: 20/20 both eyes after dilated fundus exam. Gave patient old kenyon to trial, she will let us know if she prefers her old kenyon over the new ones. Return to clinic with changes in vision, otherwise, monitor yearly. Topher Shin, TREVOR August 01, 2024 1:25 PM [facility] 08-01-2024 History of Present illness Narrative ASSESSMENT/PLAN: 1. Myopia of both eyes - ICD9: 367.1, ICD10: H52.13 (primary diagnosis) 2. Regular astigmatism of both eyes - ICD9: 367.21, ICD10: H52.223 Good vision, comfort, and fit. Ok to order a year supply. Updated spectacle and contact lens prescriptions. Educated patient not to sleep or swim in contact lenses, and to immediately remove lenses with increase in pain, redness, or discharge. DVA: 20/20 both eyes after dilated fundus exam. Gave patient old kenyon to trial, she will let us know if she prefers her old kenyon over the new ones. Return to clinic with changes in vision, otherwise, monitor yearly. Topher Shin, OD August 01, 2024 1:25 PM documented in this encounter [facility] 11-10-2022 Discharge summary Note Date/Time November 10, 2022 7:09pm [facility] Medical Records Department [address] [place] [address] Emergency Department Summary 11/10/22 MR#: [id number] Acct: [id number] Name: GENEVIEVE SCHULTZ Rep #:[id number] : 1995 27 From: Jah Thompson MD PCP: Dr. Jose Gary MD Status:REG ER Location: ED HPI HPI - Female History of Present Illness Chief Complaint: Complaint Narrative Narrative: 27-year-old female past medical history of endometriosis, used to see Dr. Carter, but has not seen her in over a year. She states that she usually gets pelvic pain around the time of her menses every month. She just completed her menses. She presents today because of pain in her pelvis. She does not usuallytake medication for her pain. She denies any dysuria or hematuria. No fevers or chills. She presents because the pain in her pelvis and suprapubic area. Noexacerbating or alleviating factors. [facility] Medical History Impacted cerumen of both ears Seizures Home Medications carbamazepine 400 mg tablet,extended release,12 hr 400 mg PO BID 12/10/16 [History Last Taken Unknown] biotin 2,500 mcg capsule 2,500 mcg PO DAILY 10/06/17 [History Last Taken Unknown] multivitamin 1 cap PO QAM 10/06/17 [History Last Taken Unknown] spironolactone 25 mg tablet 100 mg PO QAM 10/06/17 [History Last Taken Unknown] azithromycin 250 mg tablet See Rx Instructions PO .COMPLEX #6 tabs 06/17/22 [Rx Last Taken Unknown] benzonatate 100 mg capsule 200 mg PO TID PRN cough #30 caps 06/17/22 [Rx Last Taken Unknown] Allergy/AdvReac Type Severity Reaction Status Date / Time No Known Allergies Allergy Verified 11/10/22 18:54 Family History Other Breast cancer Cancer Diabetes Heart disease Social History Smoking Status: Never smoker alcohol intake: never substance use type: does not use additional social history: DOES USE ASPIRIN DOES USE IBUPROFEN ROS ROS ED ROS Narrative Constitutional: No fever, no chills. HEENT: No sore throat. No neck pain. No loss of vision. No rhinorrhea. Cardiovascular: No chest pain. No palpitations. No pedal edema. Respiratory: No cough, no shortness of breath. Abdominal: Positive suprapubic/pelvic abdominal pain. No nausea. No vomiting. Genitourinary: No dysuria. No hematuria. Musculoskeletal: No myalgias. No arthralgias. Neurologic: No headaches. No dizziness. No lightheadedness. Skin: No rash. No change in color. Psychiatric: No depression. No anxiety. EXAM Physical Exam Narrative Exam Narrative: Afebrile. Vital signs noted. HEENT: Normocephalic. Atraumatic. PERRL, EOMI. Neck soft and supple. No pointtenderness or step off. Cardiovascular: Regular rate and rhythm. No murmurs, rubs, or gallops appreciated. Respiratory: No tachypnea. Lungs clear to auscultation bilaterally. Gastrointestinal: Abdomen soft, mild tenderness suprapubic abdomen with normoactive bowel sounds. No rebound or guarding. Neurological: Awake. Alert. Nonfocal, nonlateralizing. Skin: No rash. Normal color. No pallor. Musculoskeletal: No pedal edema. Full range of motion extremities. Const Vital Signs: 11/10/22 18:52 Temperature 98.4 F Temperature Source Temporal Pulse Rate 80 Respiratory Rate 16 Blood Pressure 131/88 H Blood Pressure Mean 102 Pulse Ox 99 Oxygen Delivery Method Room Air MDM MDM MDM Narrative Medical decision making narrative: Given her history, in the differential diagnosis is endometriosis exacerbation versus ectopic versus cystitis. She was unable to produce a urine sample initially because she states that she went prior to coming to the emergency department. From her history it does sound like she is having more problems with endometriosis. She was given ibuprofen 800 mg initially here for analgesia. She will be allowed to drink fluids and we will send off a UA for analysis along with a urine . I reviewed her urinalysis results and there is no evidence of infection, 0-5 WBCs. I do not feel that antibiotics are indicated. Urine test was reviewed and is negative. At this point in time, after ibuprofen, she states she is feeling slightly improved. I offered to write her prescription for ibuprofen but she declined. I offered to write her for something a little bit stronger for pain for a short course, but she also declined. She will follow-upwith her GOLF CLUB REPAIRER as soon as possible as I do feel that this is most likely endometriosis. I feel she be discharged safely home with follow-up. Return instructions to the emergency department were reviewed. Disposition is discharged home in stable condition. Patient and mother comfortable with the plan. Lab Data Attestation: I reviewed the patient's lab results. Labs: Laboratory Results - last 24 hr 11/10/22 11/10/22 19:00 19:00 Urine Color Yellow Urine Clarity Clear Urine pH 7.0 Ur Specific [place] 1.015 Urine Protein 15 H Urine Glucose (UA) Normal Urine Ketones Negative Urine Occult Blood 25 H Urine Nitrite Negative Urine Bilirubin Negative Urine Urobilinogen Normal Ur Leukocyte Esterase 500 H Urine RBC 0 SEEN Urine WBC 0-5 SEEN Ur Squamous Epith Cells 0-5 SEEN Urine Bacteria 0 SEEN Urine Mucus 0 SEEN Urine Test Negative Discharge Plan Triage Chief Complaint: Complaint ED Provider: Jah Thompson Dx/Rx/DC Orders Clinical Impression: Pelvic pain, Endometriosis Instructions: ED Abdominal Pain Unkn Cause Fem, ED Endometriosis Prescriptions: No Action spironolactone 25 mg tablet 100 mg PO QAM multivitamin capsule capsule 1 cap PO QAM biotin 2,500 mcg capsule 2,500 mcg PO DAILY azithromycin 250 mg tablet See Rx Instructions PO .COMPLEX Qty: 6 0RF Rx Instructions: take 500 mg today (day 1), then 250 mg for 4 days (days 2-5) PO benzonatate 100 mg capsule 200 mg PO TID PRN (Reason: cough) Qty: 30 0RF carbamazepine 400 MG tablet extended release 12 hr 400 mg PO BID Label Comments: Primary Care Provider: Jose Gary Referrals: Jose Gary MD [Primary Care Provider] - Naz Greene MD [Med Staff - Active Staff] - As soon as possible Activity Restrictions/Additional Instructions: Take ibuprofen 800 mg by mouth 3 times a day with food for pain. Follow-up withOB/AIR BRAKE RIGGER as soon as possible. Disposition Disposition: Home, Self Care What to do if you have Problems For any increased pain, shortness of breath, bleeding, nausea or vomiting, chestpain, or any unexpected problems, contact your Primary Care Provider. Call [facility] ([phone]) or report to the closest Emergency Room. Call 911 if necessary. 11/10/222005 <Electronically signed by Jah Thompson MD> Cosigner Signature (if applicable): CC: Dr. Jose Gary MD; Dr. 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 Start use of Ofloxacin 0.3% 1 gt right eye four times a day X 1 week. Ocular lubricants as neededfor comfort in between AB drops. Recheck in 3-4 days. Discussed other possible causes such as viralto monitor for if treatment fails to improve symptoms as discussed. Instruct patient to immediatelyreport any change in condition outside of expected and discussed symptoms. I have confirmed and edited as necessary the relevant ophthalmic history, ROS, and the neuro exam findings as obtained by others. I have seen and examined Genevieve Schultz. I have discussed the case and the management of this patient's care with the Resident/Fellow, if applicable. I also have reviewed and agree with the assessment and plan as stated above and agree withall of its relevant components. 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 Start use of Ofloxacin 0.3% 1 gt right eye four times a day X 1 week. Ocular lubricants as neededfor comfort in between AB drops. Recheck in 3-4 days. Discussed other possible causes such as viralto monitor for if treatment fails to improve symptoms as discussed. Instruct patient to immediatelyreport any change in condition outside of expected and discussed symptoms. I have confirmed and edited as necessary the relevant ophthalmic history, ROS, and the neuro exam findings as obtained by others. I have seen and examined Genevieve Schultz. I have discussed the case and the management of this patient's care with the Resident/Fellow, if applicable. I also have reviewed and agree with the assessment and plan as stated above and agree withall of its relevant components. Mckinley John II, OD [facility] Diagnosis Marginal corneal ulcer of right eye- Primary Marginal corneal ulcer [facility] Diagnosis Onset Date Resolution Status Impacted cerumen of both ears [facility] Work Phone: Evaluation note* Diagnosis Myopia of both eyes- Primary Myopia Regular astigmatism of both eyes Regular astigmatism [facility] Diagnosis Nonintractable generalized idiopathic epilepsy without status epilepticus (CMS/HCC)- Primary documented [facility] encounter [facility]* Diagnosis Encounter for gynecological examination without abnormal finding- Primary Screening for cervical cancer Screening for malignant neoplasm of the cervix Screening examination for STI documented in this encounter [facility] Work Phone: Evaluation note* Diagnosis test negative LGSIL on Pap smear of cervix documented in this encounter [facility] Work Phone: Evaluation note* Diagnosis LGSIL on Pap smear of cervix- Primary documented in this encounter [facility] Work Phone: History of Present illness Narrative* Brittni SandovalAKIN paniagua - 05/06/2024 4:00 PM EDT Images from the original note were not included. CHIEF COMPLAINT: Chief Complaint Patient presents with Seizures HISTORY OF PRESENT ILLNESS: 28 year old female presented to office to follow up on seizures. Denies recent seizures, seizure like activity or nocturnal events. Tolerates carbamazepine well, denies s/sx of depression, thoughts or feelings of self harm, nor has a plan. Last known seizure in 2014. Denies further questions or concerns.. Current Outpatient Medications on File Prior to Visit Medication Sig Dispense Refill carBAMazepine XR (TEGretol XR) 400 MG 12 hr tablet Take 1 tablet (400 mg) by mouth in the morning and 1 tablet (400 mg) before bedtime. 180 tablet 0 spironolactone (Aldactone) 50 MG tablet Take 1 tablet every morning and 2 tablets every night with a full glass of water. dupilumab (Dupixent) 300 MG/2ML injection Inject 300 mg under the skin every 14 (fourteen) days. spironolactone (Aldactone) 100 MG tablet take 1.5 tablets Orally Once a day for 30 day(s) No current facility-administered medications on file prior to visit. Past Medical History: Diagnosis Date Anxiety Eczema Insomnia Seizures (CMS/HCC) Past Surgical History: Procedure Laterality Date TONSILLECTOMY No family history on file. Social History Tobacco Use Smoking status: Never Smokeless tobacco: Not on file Substance Use Topics Alcohol use: Not on file Comment: Caffeine: coffee ALLERGIES: Patient has no known allergies. REVIEW OF SYSTEMS: General: Appetite change: denies. Chills: denies. Fever: denies. Allergy/Immunology: Unusual rection to medications, food, animals or insects reaction: denies. Ophthalmologic: Visual acuity change: denies. ENT: Decreased hearing: denies. Endocrine: Weight loss: denies. Respiratory: Cough: denies. Wheezing: denies. Cardiovascular: Chest pain: denies. Palpitations: denies. Gastrointestinal: Abdominal pain: denies. Difficulty swallowing: denies Hematology: Bleeding problems: denies. Genitourinary: Painful urination: denies. Musculoskeletal: Joint pain: denies. Joint edema: denies. Skin: Rash: denies. Neurologic: Ataxia: denies, Tremor: denies. Psychiatric Suicidal thoughts: denies. Also see HPI for elements of ROS documented therein and for details of positive findings, which shall supersede the foregoing. OBJECTIVE: Objective Vitals: 05/06/24 1452 BP: 126/78 Pulse: 66 SpO2: 98% Weight: 142 lb 8 oz Height: 5' 3 Body mass index is 25.24 kg/m . Examination: General Exam: pleasant, well nourished, well developed, in no acute distress Head: normocephalic, atraumatic Eyes: extraocular movement intact (EOMI), pupils equal, round, reactive to light, upper eyelids normal , lower eyelids normal Ears: no obvious hearing deficit Nose: Nares patent Neck/Throat: neck supple, full range of motion Oral Cavity: mucosa moist Skin: warm and dry Heart: no murmurs, regular rate and rhythm, S1, S2 normal Lungs: clear to auscultation bilaterally, good air movement, no wheezes, rales, rhonci, speaks in full sentences Chest: normal shape and expansion Abdomen: bowel sounds present, soft, nontender, nondistended, no guarding or rigidity Extremities: no edema, no cyanosis Musculoskeletal: no swelling or deformity Neurologic: nonfocal, alert and oriented, cognitive exam grossly normal, cranial nerves 2-12 grossly intact, motor strength 5/5 bilateral symmetrically, no drift, coordination intact, sensory exam intact, gait normal Psych: pleasant, cooperative, good eye contact, speech clear, judgement and insight good ASSESSMENT/PLAN: 1. 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 06/2021 EEG: normal - carBAMazepine XR (TEGretol XR) 400 MG 12 hr tablet; Take 1 tablet (400 mg) by mouth in the morning and 1 tablet (400 mg) before bedtime. Dispense: 180 tablet; Refill: 0 Pt has been fully educated on their diagnosis, treatment options, follow up plan, and return instructions. [facility] Additional Instructions Take ibuprofen 800 mg by mouth 3 times a day with food for pain. Follow-up with [facility] [employer] [facility] as soon as possible.[facility] Work Phone: Summary Purpose Family History No Family History Records Found Relationship Condition Age at Onset Recorded Date/T puma Not Specified Diabetes mellitus Unknown Cardiac disease Unknown Malignant neoplasm of breast Unknown Malignant neoplasm Unknown Advance Directives No Advanced Directives Records Found Advance Directive Response Recorded Date/ Time Living Will No November 10, 023 6:54pm Power of Senior Designer No November 10, 2022 6:54pm Medications Administered Section Active Administered Medications - up to 3 most recent administrations Medication Order MAR Action Action Date Dose Rate Site fluorescein-benoxinate 0.25-0.4 % 1 Drop (FLURESS) 1 Drop, RIGHT EYE, DIRECTED, Starting on 03/19/22 at 1030, Until 03/19/22 at 2229, Administer for applanation tonometry. In the event of a Fluress shortage, administer [place]-Fluor 1 drop into the right eye as directed for applanation tonometry Given 03/19/2022 10:30 AM EDT 1 Drop Chief Complaint and Reason for Visit Chief Complaint BILATERAL EAR COMPLA INTS Reason for Visit Impacted cerumen of both ears Additional Source Comments INFORMATION SOURCE (unrecogn ized section and content) DATE CREATED AUTHOR 11/19/2018 [facility] DATE CREATED AUTHOR AUTHOR'S ORGANIZ ATION 08/26/2021 [facility] DATE CREATED AUTHOR AUTHOR'S ORGANIZ ATION 03/15/2024 [facility] DATE CREATED AUTHOR AUTHOR'S ORGANIZ ATION 03/18/2024 [facility] DATE CREATED AUTHOR AUTHOR'S ORGANIZ ATION 05/07/2024 [facility] Special[facility] DATE CREATED AUTHOR AUTHOR'S ORGANIZ ATION 08/03/2024 [facility] DATE CREATED AUTHOR AUTHOR'S ORGANIZ ATION 04/29/2025 [facility] DATE CREATED AUTHOR AUTHOR'S ORGANIZ ATION 06/04/2025 [facility] DATE CREATED AUTHOR AUTHOR'S ORGANIZ ATION 07/13/2025 [facility] <item> Privacy Markings (unrecogniz ed section and content) Section Author: Sana Alston PROHIBITION ON REDISCLOSURE OF CONFIDENTIAL INFORMATION This notice accompanies a disclosure of information concerning a client made to you with the consent of such client. Source Comments (unrecognize d section and content) In the event this informatio n is protected by the Federal Confidentiality of Alcohol and Drug Abuse Patient Records regulations: The Federal rules restrict any use of the information to criminally investigate or prosecute any alcohol or drug abuse patient.[facility] the event this information is protected by the Federal Confidentiality of Alcohol and Drug Abuse Patient Records regulations: The Federal rules restrict any use of the information to criminally investigate or prosecute any alcohol or drug abuse patient.[facility] Reason for Visit (unrecogniz ed section and content) Reason Comments Red Eye Right Eye Reason Comments Yearly Exam Contact lens evaluation Specialty Diagnoses / Procedures Referred By Contac t Referred To Contact OPHTHALMOLOGY Diagnoses Myopia, bilateral Procedures OPHTHALMOLOGICAL EXAM, EST PT. RX&FITG C-LENS SUPVJ CRNL LENS OU XCPT APHK Self Opht [place] [address] [place] [address] Referral ID Status Reason Start Date Expiration Date V isits Requested Visits Authorized [id number] Closed Patient Cleared - True Self-Pay required payment collected 06/24/2024 09/22/2024 1 1 Reason Comments Seizures Reason Comments Procedure Patient is here for colposcopy procedure. Last pap showed LGSIL. LMP: 05/07/25. Reason Comments Follow-up Follow up after colp . Pt states she had itching, odor, and discharge after colp, but has now seemed to be getting better Care Teams (unrecognized sec tion and content) Criminal Analyst Relationship Specialty Start Date End Date Jose Gary PCP - General Family Practice 05/02/12 Team Status: Active Member Role Status Dates Dr. Jose Gary MD Family Provider Active Dr. Jose Gary MD Primary Care Provider Active Team Status: Inactive Member Role Status Dates Dr. Jose Gary MD Primary Care Provider, Referrin g Provider Active Lorne HARTLEY, PA Attending Provider Active Team Status: Inactive Member Role Status Dates Dr. Jose Gary MD Primary Care Provider Active Jah Thompson MD Emergency Provider Active Criminal Analyst Relationship Specialty Start Date End Date Jose Gary MD [address] [place] [address] PCP - General Ophthalmology 04/10/23 Criminal Analyst Relationship Specialty Start Date End Date Jose Gary MD [address] [place] [address] PCP - General Ophthalmology 04/10/23 Criminal Analyst Relationship Specialty Start Date End Date Generic Provider, No Assigned [facility]cpMD [facility] [place] [address] PCP - General [employer] Repairer 03/13/24 Marlen Heck MD [address] [address] PCP - MMO ACO PCP 01/16/25 Jose Gary MD [address] [place] [id number] 03/13/24 Criminal Analyst Relationship Specialty Start Date End Date Generic Provider, No [place] [address] PCP - General Marine Electronics Repairer 03/13/24 Marlen Heck MD [address] [place] [phone] PCP - MMO ACO PCP 01/16/25 Jose Gary MD [address] [place] [id number] 03/13/24 Criminal Analyst Relationship Specialty Start Date End Date Generic Provider, No Assigned MD Flo [facility] [place] [place] [address] PCP - General Marine Electronics Repairer 03/13/24 Marlen Heck MD [address] [phone] PCP - MMO ACO PCP 01/16/25 Jose Gary MD [address] [place], [place] [phone] 03/13/24 Goals (unrecognized section and content) Goals may be documented in a n alternate section FOR RECORDS PERTAINING TO PATIENTS WHO ARE OR HAVE BEEN ENROLLED IN A CHEMICAL DEPENDENCY/SUBSTANCEABUSE PROGRAM, SOME INFORMATION MAY BE OMITTED. This clinical summary was aggregated from multiple sources. Caution should be exercised in using it in the provision of clinical care. This summary normalizes information from multiple sources, and as a consequence, information in this document may materially change the coding, format and clinical context of patient data. In addition, data may be omitted in some cases. CLINICAL DECISIONS SHOULD BE BASED ON THE PRIMARY CLINICAL RECORDS. [facility] [employer] [facility]. provides no warranty or guarantee of the accuracy or completeness of information in this document.
[2025-08-21 19:47] VITALS: BP 103/74; PULSE 86; RESP 17; O2SAT 97
[2025-08-21 19:48] VITALS: BP 103/74; PULSE 86; RESP 17; TEMP 36.4; O2SAT 97
== END 2025-08-21 19:49 | disposition home or self-care (01) ==
PROVIDERS: Emergency Provider Emergency Medicine; Visit Provider Emergency Medicine
DX: S50.12XA Contusion of left forearm, initial encounter (principal); M79.632 Pain in left forearm; M25.522 Pain in left elbow; W55.22XA Struck by cow, initial encounter
CPT/HCPCS: 73080; 73090; 96372; 99282